=== PATIENT | male | born 1960 | race Caucasian/White ===

== ENCOUNTER → 2023-06-07 | Outpatient (CLI) | payer BC, SELFPAY ==
--- OUTSIDE RECORDS SUMMARY | 2023-06-07 06:22 | XMS RPT_ITS | CCD ---
Author Name Unknown Address [address] [place] [id number] Organization [facility] Results Test Name Value Interpretation Reference Range Facil ity Encounters Encounter Date Encounter Type Care Provider Facility Start: 06-08-2022 End: 06-08-2022 ambulatory Facility:[facility] Payers Date Payer Category Payer Unknown [id number] Summary Purpose Family History No Family History Records Found Advance Directives No Advanced Directives Records Found Additional Source Comments (unrecognized sect ion and content) No Status Records Found INFORMATION SOURCE (unrecogn ized section and content) FOR RECORDS PERTAINING TO PATIENTS WHO ARE OR HAVE BEEN ENROLLED IN A CHEMICAL DEPENDENCY/SUBSTANCEABUSE PROGRAM, SOME INFORMATION MAY BE OMITTED. This clinical summary was aggregated from multiple sources. Caution should be exercised in using it in the provision of clinical care. This summary normalizes information from multiple sources, and as a consequence, information in this document may materially change the coding, format and clinical context of patient data. In addition, data may be omitted in some cases. CLINICAL DECISIONS SHOULD BE BASED ON THE PRIMARY CLINICAL RECORDS. [facility]. provides no warranty or guarantee of the accuracy or completeness of information in this document.
[2023-06-07 06:42] LABS: Absolute Neutrophil Count 3.9 X10^3/uL (2.0-7.7); Basophil# 0.04 X10^3/uL; Basophil% 0.6 % (0-1); Eosinophil# 0.22 X10^3/uL; Eosinophils% 3.6 % (0-5); Hematocrit 43.3 % (40-54); Hemoglobin 14.1 g/dL (13.0-16.5); Lymphocyte % 19.4 % (19-41); Mean Corp Hgb Conc 32.6 g/dL (32-36); Mean Corpuscular Volume 86.1 fL (80-94); Mean Platelet Vol. 9.7 fl (6.2-12.0); Monocyte# 0.75 X10^3/uL; Monocyte% 12.2 % (0-10); NRBC Flagged by Analyzer 0 % (0-5); Neutrophil # 3.94 X10^3/uL (2.7-7.7); Neutrophil % 63.9 % (47-70); Platelet Count 214 K/mm3 (150-450); RBC Distribution Width CV 12.6 % (11.6-14.6); RBC Distribution Width SD 39.6 fl (35.1-43.9); Red Blood Count 5.03 M/mm3 (4.6-6.2); White Blood Count 6.2 K/mm3 (4.4-11.0)
[2023-06-07 07:23] LABS: ALB/GLOB Ratio 0.9 RATIO (0.9-2.4); AST(SGOT) 19 U/L (15-37); Alanine Aminotransfer ALT/SGPT 30 U/L (16-61); Albumin, Serum 3.5 g/dL (3.2-5.0); Alkaline Phosphatase 87 U/L (45-117); Anion Gap 2 (5-15); BUN 20 mg/dL (7-18); Calcium,Total 9.2 mg/dL (8.5-10.1); Chloride 106 mmol/L (98-107); Cholesterol 167 mg/dL (200); EST Glomerular Filtration Rate 80 mL/min (>60); Est Glom Filt Rate - Afr Amer 97 mL/min (>60); Globulin 3.9 g/dL (2.2-4.2); Glucose 98 mg/dL (74-106); High Density Lipoprotein 74 mg/dL; Potassium 3.9 mmol/L (3.5-5.1); Protein, Total 7.4 g/dL (6.4-8.2); Sodium Level 140 mmol/L (136-145); Triglycerides 36 mg/dL; Very Low Density Lipoprotein 7 mg/dL (5-40)
== END | disposition home or self-care (01) ==
PROVIDERS: PCP Family Medicine; Referring Provider Family Medicine; Visit Provider Family Medicine
DX: Z00.00 Encounter for general adult medical examination without abnormal findings (principal); Z12.5 Encounter for screening for malignant neoplasm of prostate
CPT/HCPCS: 36415; 80053; 80061; 85025

== ENCOUNTER → 2023-06-14 | Outpatient (CLI) | payer BC, SELFPAY ==
--- OUTSIDE RECORDS SUMMARY | 2023-06-14 11:00 | XMS RPT_ITS | CCD ---
Author Name Unknown Address [address] [place] [id number] Organization [facility] Results Test Name Value Interpretation Reference Range Facil ity Encounters Encounter Date Encounter Type Care Provider Facility Start: 06-08-2022 End: 06-08-2022 ambulatory Facility:[facility] Payers Date Payer Category Payer Unknown [id number] Summary Purpose Family History No Family History [...] BE BASED ON THE PRIMARY CLINICAL RECORDS. [facility]. provides no warranty or guarantee of the accuracy or completeness of information in this document.
[2023-06-14 12:50] LABS: PSA,Total - Annual Screen 2.59 ng/mL (0.00-4.00)
== END | disposition home or self-care (01) ==
LOC: BFHLAB 09:41
PROVIDERS: PCP Family Medicine; Visit Provider Family Medicine
DX: Z12.5 Encounter for screening for malignant neoplasm of prostate (principal)
CPT/HCPCS: 36415; 84153; G0103

== ENCOUNTER → 2024-06-07 | Outpatient (CLI) | payer BC, SELFPAY ==
[2024-06-07 06:32] LABS: Absolute Lymphocyte Count 1.82 X10^3/uL (0.83-4.51); Absolute Neutrophil Count 3.3 X10^3/uL (2.0-7.7); Basophil# 0.06 X10^3/uL; Eosinophil# 0.29 X10^3/uL; Eosinophils% 4.9 % (0-5); Hematocrit 42.4 % (40-54); Hemoglobin 14.4 g/dL (13.0-16.5); Lymphocyte # 1.82 X10^3/ul (0.83-4.51); Lymphocyte % 30.5 % (19-41); Mean Corpuscular Volume 85.3 fL (80-94); Mean Platelet Vol. 9.8 fl (6.2-12.0); Monocyte# 0.53 X10^3/uL; Monocyte% 8.9 % (0-10); NRBC Flagged by Analyzer 0 % (0-5); Neutrophil # 3.27 X10^3/uL (2.7-7.7); Neutrophil % 54.7 % (47-70); Platelet Count 218 K/mm3 (150-450); RBC Distribution Width CV 12.2 % (11.6-14.6); RBC Distribution Width SD 37.1 fl (35.1-43.9); Red Blood Count 4.97 M/mm3 (4.6-6.2)
[2024-06-07 07:07] LABS: AST(SGOT) 21 U/L (15-37); Alanine Aminotransfer ALT/SGPT 27 U/L (16-61); Albumin, Serum 3.6 g/dL (3.2-5.0); Alkaline Phosphatase 71 U/L (45-117); Anion Gap 3 (5-15); BUN 21 mg/dL (7-18); BUN/Creat Ratio 19.6 RATIO (10-20); Calcium,Total 9.1 mg/dL (8.5-10.1); Chloride 106 mmol/L (98-107); Cholesterol 191 mg/dL (200); Creatinine, Serum 1.07 mg/dL (0.70-1.30); EST Glomerular Filtration Rate 74 mL/min (>60); Est Glom Filt Rate - Afr Amer 90 mL/min (>60); Globulin 3.5 g/dL (2.2-4.2); Glucose 95 mg/dL (74-106); High Density Lipoprotein 80 mg/dL; PSA,Total - Annual Screen 2.49 ng/mL (0.00-4.00); Potassium 3.8 mmol/L (3.5-5.1); Protein, Total 7.1 g/dL (6.4-8.2); Sodium Level 139 mmol/L (136-145); Triglycerides 67 mg/dL; Very Low Density Lipoprotein 13 mg/dL (5-40)
== END | disposition home or self-care (01) ==
LOC: LAB 06:11
PROVIDERS: PCP Family Medicine; Referring Provider Family Medicine; Visit Provider Family Medicine
DX: Z00.00 Encounter for general adult medical examination without abnormal findings (principal); Z12.5 Encounter for screening for malignant neoplasm of prostate
CPT/HCPCS: 36415; 80053; 80061; 84153; 85025; G0103

== ENCOUNTER 2024-08-17 08:30 | Day surgery (SDC) | payer BC, SELFPAY ==
[2024-08-17] VITALS (8 sets, daily range): BP systolic 79–158; BP diastolic 53–86; PULSE 57–74; RESP 16–18; TEMP 36.3–36.6; O2SAT 93–100; BMI 23.3
--- NOTE | 2024-08-17 08:52 | PRE.ANES_ITS ---
ASA Classification* ASA Classification ASA Classification: 2 Assessment & Plan Anesthesia* Anesthesia Assessment Anesthesia Assessment: Discussed sedation and/or anesthesia options, risks, benefits, and alternatives with patient/parents/legal guardian/POA. Questions invited. The patient/parents/legal guardian/POA seems to understand and agrees to proceed with anesthesia plan. Reviewed the physical assessment, medical history, allergy history and patient home medications list prior to surgery/procedure/anesthetic and documented any changes. Performed airway and anesthesia risk assessments. Anesthesia Type Anesthesia Type: MAC Anesthesia Focused Assessment* Airway Assessment Mouth opens: >3 cm Mallampati Score: II Focused Labs Anesthesia Preop lab: CBC WBC 6.0 K/mm3 (4.4-11.0) 06/07/24 06:16 06/07/24 RBC 4.97 M/mm3 (4.6-6.2) 06/07/24 06:16 06/07/24 Hgb 14.4 g/dL (13.0-16.5) 06/07/24 06:16 06/07/24 Hct 42.4 % (40-54) 06/07/24 06:16 06/07/24 Plt Count 218 K/mm3 (150-450) 06/07/24 06:16 06/07/24 CHEMISTRY Potassium 3.8 mmol/L (3.5-5.1) 06/07/24 06:16 06/07/24 Sodium 139 mmol/L (136-145) 06/07/24 06:16 06/07/24 BUN 21 mg/dL (7-18) H 06/07/24 06:16 06/07/24 Creatinine 1.07 mg/dL (0.70-1.30) 06/07/24 06:16 06/07/24 Glucose 95 mg/dL (74-106) 06/07/24 06:16 06/07/24 COAG Pre-Assessment Diagnosis/Proposed Procedure Planned Operative Procedure(s): EGD, COLONOSCOPY Anesthesia History Anesthesia History - therapy director: Anesthesia History - therapy director Hx Hospitalization No 08/16/24 11:49 Any Problems With Anesthesia No 08/16/24 11:49 Cholinesterase deficiency No 08/16/24 11:49 You/Your Family Experience No 08/16/24 11:49 fever (hyperthermia) with Relationship Recent Exposure to Contagious Disease Does patient have nerve No 08/16/24 11:49 stimulator Patient instructed to have device shut off --Does patient have Pacemaker or ICD? When Was Last Pacemaker Check QUESTION #4 FULL TEXT: You/Your Family Experience fever (hyperthermia) with Anesthesia Last Oral Intake Last Oral intake: Last Oral Intake NPO since Meds taken in AM with sips of water? Meds patient instructed to take am of surgery PONV PONV - therapy director: PONV - therapy director Female No 08/16/24 11:49 HX of Motion Sickness No 08/16/24 11:49 HX of N/V After Surgery No 08/16/24 11:49 Non-Smoker Yes 08/16/24 11:49 Duration of Surgery greater No 08/16/24 11:49 than 60 minutes Number of Risk Factors 1 08/16/24 11:49 PONV Score Low Risk 08/16/24 11:49 Height & Weight Height & Weight: Anesthesia: Height & Weight Height 5 ft 10 in 07/11/24 14:55 Respiratory Assessment Respiratory Assessment - therapy director: Respiratory Tract Infection Hx - therapy director Hx Respiratory Tract Infection No 08/16/24 11:49 STOP Sleep Apnea STOP Sleep Apnea - therapy director: STOP Sleep Apnea - therapy director Hx Hypertension Yes 08/16/24 11:49 Hx Sleep Apnea No 08/16/24 11:49 CPAP BIPAP Do you snore loudly (louder No 08/16/24 11:49 than talking or can be heard Do you often feel tired/ No 08/16/24 11:49 fatigued/ sleepy during daytime? Has anyone observed you stop No 08/16/24 11:49 breathing during sleep? STOP Results Negative 08/16/24 11:49 QUESTION #5 FULL TEXT : Do you snore loudly (louder than talking or can be heard through closed doors)? Tobacco Use History Tobacco Use History - therapy director: Tobacco Use History - therapy director Tobacco Use Smoking Status Never smoker 08/16/24 11:49 Hx Tobacco Use No 08/16/24 11:49 Years Smoking Packs Smoked per Day Smoking Cessation Date was within the last 15 years Hx Smoking Cessation Date Hx Smoking Cessation Counseling Hematologic Medial History Hematologic Hx - therapy director: Hematologic Medical Hx - clinical applications manager Hx of Blood Transfusion No 08/16/24 11:49 Hx of Transfusion in last 3 No 08/16/24 11:49 Months Date of Last Transfusion (if within last 3 months) Ever experience any problems No 08/16/24 11:49 with transfusion(s)? Specify any problems Hx of Preganancy in last 3 N/A 08/16/24 11:49 Months Nurse Filling Out Transfusion [facility] 08/16/24 11:49 & Questions: Date: 08/16/24 08/16/24 11:49 Time: 11:55 08/16/24 11:49 Patient unable to answer at this time (ie. confused, unrespo /Reproduction History /Reproductive History - therapy director: /Reproductive Hx- therapy director Hx Now Gestational Age (in weeks): EDC: Hx Hx Para Hx Section SAB PFSH Medical History Wears contact lenses Non-smoker Leg cramps Hypertension Hemorrhoids Positive fecal occult blood test Home Medications ?Medication ?Instructions ?Recorded ?Last Taken ?Type lisinopril 20 1 tab PO DAILY HYPERTESION 0 07/12/24 Unknown History mg-hydrochlorothiazide 12.5 mg tablet Allergy/AdvReac Type Severity Reaction Status Date / Time No Known Allergies Allergy Verified 08/16/24 11:48 Surgical History History of ankle surgery Hx of tonsillectomy Social History Smoking Status: Never smoker alcohol intake: never substance use type: does not use Review of Systems (Anesthesia) ROS Narrative System reviewed and no additional complaints, except as documented.
--- NOTE | 2024-08-17 09:46 | PCM.HP.BLA ---
History and Physical Date of Admission: 08/17/24 Intake Vital Signs 07/11/2513:55 Height 5 ft 10 in Weight: 175 lb 4 oz BMI 25.1 BP 168/87 H Blood Pressure Location Rt brachial Position Sitting Respiration 18 Pulse 69 Pulse Source Monitor Temp 97.8 F Temp Source Temporal Pulse Oximetry (%) 99 Oxygen Delivery Method room air Intake Visit Reasons: BLOOD IN STOOL Chief Complaint: blood in stool Is patient in pain?: No Allergies No Known Allergies Allergy (Unverified 07/11/24 14:57) Medications ?Medication ?Instructions ?Recorded ?Confirmed ?Type NK 07/11/24 07/11/24 History PFSH Medical History (Updated 07/11/24 @ 14:55 by Lizette Rey LPN) Hypertension Hemorrhoids Positive fecal occult blood test Surgical History (Updated 07/11/24 @ 14:55 by Lizette Rey LPN) Hx of tonsillectomy Social History (Updated 07/11/24 @ 14:55 by Lizette Rey LPN) Smoking Status: Never smoker alcohol intake: never substance use type: does not use HPI HPI HPI: Patient is a 64-year-old male here for positive fecal occult blood test. The patient has never had a colonoscopy in the past. He has never had an EGD. He denies abdominal pain or blood in the stool. He denies black and tarry stools as well. ROS General General: No weight change, appetite, fatigue, colon cancer, breast cancer or weakness HEENT HEENT: No difficulty swallowing, eye injury, eye surgery, swollen glands or hoarseness Endo Endocrine: No thyroid disease, diabetes mellitus, thyroid cancer, Hair loss, heat intolerance or cold intolerance Skin Skin: No rash or changing moles Musc Musculoskeletal: No back problems, arthritis, rheumatoid arthritis, gout or joint pain Cardio Cardiovascular: Yes high blood pressure; No murmur, pacemaker, heart disease, atrial fibrillation, heart attack, heart stent, palpitations, shortness of breat with exertion or chest pain Psych Psychiatric: No depression, anxiety or hearing voices Resp Respiratory: No shortness of breath, No sleep apnea, No cough, No COPD, No asthma, No emphysema and No wheezing Gastro Gastrointestinal: No abdominal pain, No nausea or vomiting, No diarrhea, No constipation, Yes blood in stool, No acid reflux, Yes hemorrhoids, No ulcers, No gallbladder problem and No black,tarry stools [place] Hematologic: No blood thinners, No blood disorders, No bleeding, No anemia and No blood clots Neuro Neurologic: No numbness, No tingling and No weakness Exam Const General: cooperative Orientation: alert and oriented x3 HENMT Head: normal to inspection Neck Neck: normal visual inspection and full ROM Chest Chest palpation & inspection: normal inspection of the chest Resp Effort & Inspection: normal respiratory effort Auscultation: clear to auscultation bilaterally Cardio Rate: regular rate Rhythm: regular rhythm GI Inspection: non-distended Palpation: soft and nontender Skin General: no rashes or lesions noted Neuro General: patient alert and patient oriented x3 Extrem General: full ROM Psych Appearance: grossly normal Mental Status: mental status grossly normal Assessment and Plan Assessment and Plan (1) Positive fecal occult blood test: Status: Acute Plan: Given the positive fecal occult blood test I would recommend the patient have an EGD and colonoscopy. He has never had a screening colonoscopy in the past. I explained endoscopy in detail to the patient. I explained the risks including but not limited to stroke or heart attack with anesthesia, perforation of the GI tract, bleeding, infection. I explained that any of these could necessitate further emergency surgery. The patient understands and all questions were answered sufficiently. The patient wishes to proceed with procedure. Lexx Mascorro MD Pager: [facility] [address] [place] [address], [address] [place] [id number] Office: I have examined the patient and the H&P has been reviewed. There are no clinical changes since date of exam.
--- NOTE | 2024-08-17 10:31 | OP.EGD_ITS ---
Patient Name: Paul Ramírez Procedure Date: 08/17/2024 9:48 AM Date of : 1960 Age: 64 Procedure: Upper GI endoscopy Indications: Occult blood in stool Providers: Lexx Mascorro MD Medicines: Propofol per Anesthesia Patient Profile: This is a 64 year old male. Refer to note in patient chart for documentation of history and physical. Complications: No immediate complications. Procedure: Pre-Anesthesia Assessment: - Prior to the procedure, a History and Physical was performed, and patient medications and allergies were reviewed. The patient's tolerance of previous anesthesia was also reviewed. The risks and benefits of the procedure and the sedation options and risks were discussed with the patient. All questions were answered, and informed consent was obtained. Prior Anticoagulants: The patient has taken no anticoagulant or antiplatelet agents. After reviewing the risks and benefits, the patient was deemed in satisfactory condition to undergo the procedure. After obtaining informed consent, the endoscope was passed under direct vision. Throughout the procedure, the patient's blood pressure, pulse, and oxygen saturations were monitored continuously. The pediatric colonoscope was introduced through the mouth, and advanced to the third part of duodenum. The upper GI endoscopy was accomplished without difficulty. The patient tolerated the procedure well. Scope In: 10:15:02 AM Scope Out: 10:17:00 AM Total Procedure Duration Time 0 hours 1 minute 58 seconds Findings: The esophagus was normal. The stomach was normal. The examined duodenum was normal. Impression: - Normal esophagus. - Normal stomach. - Normal examined duodenum. - No specimens collected. Recommendation: - Discharge patient to home. - Resume previous diet. - Continue present medications. Procedure Code(s): --- Professional --- 14886, Esophagogastroduodenoscopy, flexible, transoral; diagnostic, including collection of specimen(s) by brushing or washing, when performed (separate procedure) Diagnosis Code(s): --- Professional --- R19.5, Other fecal abnormalities CPT copyright 2021 [employer]. All rights reserved. The codes documented in this report are preliminary and upon cafeteria or lunchroom checker review may be revised to meet current compliance requirements. Lexx Mascorro MD 08/17/2024 10:30:52 AM This report has been signed electronically. Number of Addenda: 0 Note Initiated On: 08/17/2024 9:48 AM
--- NOTE | 2024-08-17 10:31 | OP.CCLET_ITS ---
08/17/2024 Heriberto Perry [address] [place] [address] Re : Upper GI endoscopy procedure for Paul Ramírez Dear Dr. Perry This procedure was performed on Saturday, August 17, 2024. My impressions and recommendations are as follows: Impressions : - Normal esophagus. - Normal stomach. - Normal examined duodenum. - No specimens collected. Recommendations : - Discharge patient to home. - Resume previous diet. - Continue present medications. My findings are described in the full procedure note, which is enclosed. If I can be of further assistance, please feel free to contact me at Doctor phone number(s): , Work: . Sincerely, Lexx Mascorro MD 08/17/2024 10:30:52 AM This report has been signed electronically.
--- NOTE | 2024-08-17 10:32 | OP.COLON_ITS ---
Patient Name: Paul Ramírez Procedure Date: 08/17/2024 10:17 AM Date of : 1960 Age: 64 Procedure: Colonoscopy Indications: Gastrointestinal occult blood loss Providers: Lexx Mascorro MD Medicines: Propofol per Anesthesia Patient Profile: This is a 64 year old male. Refer to note in patient chart for documentation of history and physical. Last Colonoscopy: several years ago. Complications: No immediate complications. Procedure: Pre-Anesthesia Assessment: - Prior to the procedure, a History and Physical was performed, and patient medications and allergies were reviewed. The patient's tolerance of previous anesthesia was also reviewed. The risks and benefits of the procedure and the sedation options and risks were discussed with the patient. All questions were answered, and informed consent was obtained. Prior Anticoagulants: The patient has taken no anticoagulant or antiplatelet agents. After reviewing the risks and benefits, the patient was deemed in satisfactory condition to undergo the procedure. After I obtained informed consent, the scope was passed under direct vision. Throughout the procedure, the patient's blood pressure, pulse, and oxygen saturations were monitored continuously. The pediatric colonoscope was introduced through the anus and advanced to the cecum, identified by appendiceal orifice and ileocecal valve. The colonoscopy was performed without difficulty. The patient tolerated the procedure well. The quality of the bowel preparation was good. The ileocecal valve, appendiceal orifice, and rectum were photographed. Scope In: 10:17:57 AM Scope Withdrawal Time 0 hours 6 minutes 21 seconds Scope Out: 10:30:13 AM Total Procedure Duration Time 0 hours 12 minutes 16 seconds Findings: The entire examined colon appeared normal on direct and retroflexion views. Impression: - The entire examined colon is normal on direct and retroflexion views. - No specimens collected. Recommendation: - Discharge patient to home. - Resume previous diet. - Continue present medications. - Repeat colonoscopy in 10 years for screening purposes. Procedure Code(s): --- Professional --- 71660, Colonoscopy, flexible; diagnostic, including collection of specimen(s) by brushing or washing, when performed (separate procedure) Diagnosis Code(s): --- Professional --- R19.5, Other fecal abnormalities CPT copyright 2021 [employer]. All rights reserved. The codes documented in this report are preliminary and upon mobile equipment servicer review may be revised to meet current compliance requirements. Lexx Mascorro MD 08/17/2024 10:32:03 AM This report has been signed electronically. Number of Addenda: 0 Note Initiated On: 08/17/2024 10:17 AM
--- NOTE | 2024-08-17 10:32 | OP.CCLET_ITS ---
08/17/2024 Heriberto Perry [address] [place] [address] Re : Colonoscopy procedure for Paul Ramírez Dear Dr. Perry This procedure was performed on Saturday, August 17, 2024. My impressions and recommendations are as follows: Impressions : - The entire examined colon is normal on direct and retroflexion views. - No specimens collected. Recommendations : - Discharge patient to home. - Resume previous diet. - Continue present medications. - Repeat colonoscopy in 10 years for screening purposes. My findings are described in the full procedure note, which is enclosed. If I can be of further assistance, please feel free to contact me at Doctor phone number(s): , Work: . Sincerely, Lexx Mascorro MD 08/17/2024 10:32:03 AM This report has been signed electronically.
--- NOTE | 2024-08-17 10:38 | PCM.POST.ANE ---
Anesthesia: Postop Eval I Current Vital Signs Temperature: 97.4 F Pulse Rate: 64 Blood Pressure: 89/61 Respiratory Rate: 16 Pulse Ox: 98 Oxygen Delivery Method: Room Air Assessment Airway patent: Yes Spontaneous unlabored respirations: Yes Mental status: Asleep nausea: No Vomiting: No Anesthesia Complication: Yes Anesthesia Complication Comment:: in situ IV infiltrated, 2nd IV placed by anesthesia Fluid Hydration Crystalloid volume administer (ml): 60 Total IV fluid infused: 60 Progress Note Anesthesia document: Postop Eval 1 completed: Yes
--- NOTE | 2024-08-17 14:49 | PCM.POSTANE2 ---
Anesthesia Postop Eval I Sum Postop Eval Completion status Anesthesia document: Postop Eval 1 completed: Yes Anesthesia Postop Eval I Summary Anesthesia Postop Eval I Summary: Anesthesia Postop Eval I: Assessment Summary Airway patent Yes 08/17/24 10:39 [email or web address] Spontaneous unlabored Yes 08/17/24 10:39 [email or web address] respirations Mental status Asleep 08/17/24 10:39 [email or web address] nausea No 08/17/24 10:39 [email or web address] Vomiting No 08/17/24 10:39 [email or web address] Anesthesia Postop Eval I: Fluid Summary Crystalloid volume administer 60 08/17/24 10:39 [email or web address] (ml) Colloids volume administered ( ml) Blood Product volume administered (ml) Total IV fluid infused 60 08/17/24 10:39 [email or web address] Anesthesia Postop Eval I: Summary Notes Anesthesia Complication Yes 08/17/24 10:39 [email or web address] Anesthesia Complication in situ IV 08/17/24 10:39 [email or web address] Comment: infiltrated, 2nd IV placed by anesthesia Post-operative progress note Anesthesia: Postop Eval II Evaluation Mental status: Awake Pain Level: 0 nausea: No Vomiting: No
== END 2024-08-17 11:21 | disposition home or self-care (01) ==
LOC: EN 08:36 → AC 08:39
PROVIDERS: PCP Family Medicine; Referring Provider Family Medicine; Visit Provider Surgery
PROC: 0DJD8ZZ Inspection of Lower Intestinal Tract, Via Natural or Artificial Opening Endoscopic (ICD-10-PCS; CPT 45378; principal; 2024-08-17 09:25)
DX: R19.5 Other fecal abnormalities (principal)
CPT/HCPCS: 43235; 45378; A4216; J2405

== ENCOUNTER 2025-04-26 05:23 | Observation (INO) | payer BC, SELFPAY ==
[2025-04-26] VITALS (7 sets, daily range): BP systolic 119–177; BP diastolic 81–105; PULSE 54–69; RESP 16–21; TEMP 35.7–36.7; O2SAT 97–99; BMI 25.4; BMI 24.3
--- NOTE | 2025-04-26 05:23 | EKG12_ITS ---
Test Reason : SYNCOPE Blood Pressure : */* mmHG Vent. Rate : 63 BPM Atrial Rate : 63 BPM P-R Int : 192 ms QRS Dur : 90 ms QT Int : 416 ms P-R-T Axes : 41 -19 16 degrees QTcB Int : 425 ms Sinus rhythm with occasional Premature ventricular complexes Nonspecific T wave abnormality Abnormal ECG Confirmed by YOHANA RAMOS, NICHOLE ([id number]), senior editor HARVEY RODRIGUES ([id number]) on 04/29/2025 1:29:49 PM Referred By: ANIKA Confirmed By: NICHOLE MULLER MD
[2025-04-26] MEDS: 0.9% Normal Saline (1000mL) 1,000 ML 999 ML IV (05:32)
[2025-04-26 05:40] LABS: Hematocrit 42.4 % (40-54); Hemoglobin 14.7 g/dL (13.0-16.5); Immature Granulocytes Count 0.020 X10^3/uL (0.0-0.0); Mean Corp Hgb Conc 34.7 g/dL (32-36); Mean Corpuscular Volume 83.1 fL (80-94); Mean Platelet Vol. 10.1 fl (6.2-12.0); NRBC Flagged by Analyzer 0 % (0-5); Platelet Count 256 K/mm3 (150-450); RBC Distribution Width CV 11.9 % (11.6-14.6); RBC Distribution Width SD 36.1 fl (35.1-43.9); Red Blood Count 5.10 M/mm3 (4.6-6.2); White Blood Count 7.8 K/mm3 (4.4-11.0)
--- OUTSIDE RECORDS SUMMARY | 2025-04-26 05:42 | XMS RPT_ITS | CCD ---
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 Heriberto Perry DO Primary Care Provider Dr. Heriberto Perry DO Attending Provider Dr. Heriberto Perry DO Referring Provider Ludwin RAMOS, Dr. Hallman Attending Provider Ludwin RAMOS, Dr. Hallman Other Provider [phone] Heriberto Perry Primary Care Unavailable Lexx Mascorro Attending Unavailable Heriberto Perry Referring Unavailable Heriberto Perry Primary Care Unavailable Heriberto Perry Attending Unavailable Heriberto Perry Referring Unavailable Heriberto Perry Primary Care Unavailable Heriberto Perry Attending Unavailable Heriberto Perry Primary Care Unavailable Lexx Mascorro Attending Unavailable Heriberto Perry Referring Unavailable Heriberto Perry Primary Care Unavailable Lexx Mascorro Consulting Unavailable Lexx Mascorro Attending Unavailable Heriberto Perry Referring Unavailable Medications Current Medications Medication Drug Class(es) Dates Sig (Normalized) Sig (Original) hydroCHLOROthiazide 12.5 mg / lisinopril 20 mg oral tablet (1 source) Thiazide Diuretic, Angiotensin Converting Enzyme Inhibitor Start: 07-12-2024 Lisinopril-Hydr ochlorothiazide 20-12.5 mg tablet Active 1 {tbl} PO DAILY July 12, 2024 1:00am Problems Active Problems Problem Classification Problem Date Documented Da te Episodic/Chronic Essential hypertension (1 source) Hypertensive disorder; Translations: [Essential (primary) hypertension] 07-11-2024 Chronic Hemorrhoids (1 source) Hemorrhoids; Translations: [Unspecified hemorrhoids] 07-11-2024 Episodic Other gastrointestinal disorders (2 sources) Occult blood in stools; Translations: [Other fecal abnormalities] 07-11-2024 Episodic Other screening for suspected conditions (not mental disorders or infectious disease) (1 source) Encounter for screening for malignant neoplasm of prostate; Translations: [Encounter for screening for malignant neoplasm of prostate] Onset: 03-07-2025 Episodic Past or Other Problems Problem Classification Problem Date Documented Da te Episodic/Chronic Other gastrointestinal disorders (1 source) Other fecal abnormalities; Translations: [Other fecal abnormalities] Onset: 08-22-2024 Episodic Results Test Name Value Interpretation Reference Range Facility Colonoscopy Reporton 025 Colonoscopy Report [facility] Medical Records Department [address] [place] [address] Colonoscopy Report MR#: [id number] Acct: [id number] Name: PAUL RAMÍREZ Rep #: [id number] : 1960 64 From: Lexx Mascorro MD PCP: Dr. Heriberto Perry, DO [place] [facility] [place] Name: Paul Ramírez Procedure Date: 08/17/2024 10:17 AM Date of : 1960 Age: 64 Procedure: Colonoscopy Indications: Gastrointestinal occult blood loss Providers: Lexx Mascorro MD Medicines: Propofol per Anesthesia Patient Profile: This is a 64 year old male. Refer to note in patient chart for documentation of history and physical. Last Colonoscopy: several years ago. Complications: No immediate complications. Procedure: Pre-Anesthesia Assessment: - Prior to the procedure, a History and Physical was performed, and patient medications and allergies were reviewed. The patient's tolerance of previous anesthesia was also reviewed. The risks and benefits of the procedure and the sedation options and risks were discussed with the patient. All questions were answered, and informed consent was obtained. Prior Anticoagulants: The patient has taken no anticoagulant or antiplatelet agents. After reviewing the risks and benefits, the patient was deemed in satisfactory condition to undergo the procedure. After I obtained informed consent, the scope was passed under direct vision. Throughout the procedure, the patient's blood pressure, pulse, and oxygen saturations were monitored continuously. The pediatric colonoscope was introduced through the anus and advanced to the cecum, identified by appendiceal orifice and ileocecal valve. The colonoscopy was performed without difficulty. The patient tolerated the procedure well. The quality of the bowel preparation was good. The ileocecal valve, appendiceal orifice, and rectum were photographed. Scope In: 10:17:57 AM Scope Withdrawal Time 0 hours 6 minutes 21 seconds Scope Out: 10:30:13 AM Total Procedure Duration Time 0 hours 12 minutes 16 seconds Findings: The entire examined colon appeared normal on direct and retroflexion views. Impression: - The entire examined colon is normal on direct and retroflexion views. - No specimens collected. Recommendation: - Discharge patient to home. - Resume previous diet. - Continue present medications. - Repeat colonoscopy in 10 years for screening purposes. Procedure Code(s): --- Professional --- 31462, Colonoscopy, flexible; diagnostic, including collection of specimen(s) by brushing or washing, when performed (separate procedure) Diagnosis Code(s): --- Professional --- R19.5, Other fecal abnormalities CPT copyright 2021 [employer]. All rights reserved. The codes documented in this report are preliminary and upon clamp forklift operator review may be revised to meet current compliance requirements. Lexx Mascorro MD 08/17/2024 10:32:03 AM This report has been signed electronically. Number of Addenda: 0 Note Initiated On: 08/17/2024 10:17 AM 08/17/24 1032 Date Lexx Mascorro MD Cosigner Signature: Date (if indicated) CC: Dr. Lexx Mascorro MD; Dr. Heriberto Perry DO Date Dictated: 08/17/24 1017 Date Transcribed: Accountant Assistant: AC Signed Normal [facility] EGD Reporton 08-17-2024 EGD Report [facility] Medical Records Department [address] [place] [address] EGD Report MR#: [id number] Acct: [id number] Name: PAUL RAMÍREZ Rep #: [id number] : 1960 64 From: Lexx Mascorro MD PCP: Dr. Heriberto Perry, DO Status[place] [facility] [place] Name: Paul Ramírez Procedure Date: 08/17/2024 9:48 AM Date of : 1960 Age: 64 Procedure: Upper GI endoscopy Indications: Occult blood in stool Providers: Lexx Mascorro MD Medicines: Propofol per Anesthesia Patient Profile: This is a 64 year old male. Refer to note in patient chart for documentation of history and physical. Complications: No immediate complications. Procedure: Pre-Anesthesia Assessment: - Prior to the procedure, a History and Physical was performed, and patient medications and allergies were reviewed. The patient's tolerance of previous anesthesia was also reviewed. The risks and benefits of the procedure and the sedation options and risks were discussed with the patient. All questions were answered, and informed consent was obtained. Prior Anticoagulants: The patient has taken no anticoagulant or antiplatelet agents. After reviewing the risks and benefits, the patient was deemed in satisfactory condition to undergo the procedure. After obtaining informed consent, the endoscope was passed under direct vision. Throughout the procedure, the patient's blood pressure, pulse, and oxygen saturations were monitored continuously. The pediatric colonoscope was introduced through the mouth, and advanced to the third part of duodenum. The upper GI endoscopy was accomplished without difficulty. The patient tolerated the procedure well. Scope In: 10:15:02 AM Scope Out: 10:17:00 AM Total Procedure Duration Time 0 hours 1 minute 58 seconds Findings: The esophagus was normal. The stomach was normal. The examined duodenum was normal. Impression: - Normal esophagus. - Normal stomach. - Normal examined duodenum. - No specimens collected. Recommendation: - Discharge patient to home. - Resume previous diet. - Continue present medications. Procedure Code(s): --- Professional --- 36247, Esophagogastroduodenoscopy , flexible, transoral; diagnostic, including collection of specimen(s) by brushing or washing, when performed (separate procedure) Diagnosis Code(s): --- Professional --- R19.5, Other fecal abnormalities CPT copyright 2021 [employer]. All rights reserved. The codes documented in this report are preliminary and upon clamp forklift operator review may be revised to meet current compliance requirements. Lexx Mascorro MD 08/17/2024 10:30:52 AM This report has been signed electronically. Number of Addenda: 0 Note Initiated On: 08/17/2024 9:48 AM 08/17/24 1030 Date Lexx Hathaway Signature: Date (if indicated) CC: Dr. Lexx Mascorro MD; Dr. Heriberto Perry DO Date Dictated: 08/17/2448 Date Transcribed: Accountant Assistant: FRANCIA Deng [facility] MR/POSTOP.[facility] 08-17-2024 MR/POSTOP.[facility] Medical Records Department [address] [place] [address] Anesthesia Postop Eval I 08/17/24 1038 MR#: [id number] Acct: [id number] Name: PAUL RAMÍREZ Rep #: [id number] : 1960 64 From: Jean-Claude Madsen PCP: Dr. Heriberto Perry DO Status:REG [facility] Y Race: C Location: [place] [address] Anesthesia: Postop Eval I Current Vital Signs Temperature: 97.4 F Pulse Rate: 64 Blood Pressure: 89/61 Respiratory Rate: 16 Pulse Ox: 98 Oxygen Delivery Method: Room Air Assessment Airway patent: Yes Spontaneous unlabored respirations: Yes Mental status: Asleep nausea: No Vomiting: No Anesthesia Complication: Yes Anesthesia Complication Comment:: in situ IV infiltrated, 2nd IV placed by anesthesia Fluid Hydration Crystalloid volume administer (ml): 60 Total IV fluid infused: 60 Progress Note Anesthesia document: Postop Eval 1 completed: Yes 08/17/24 103 Date Jean-Claude Hathaway Signature: Date CC: Signed Normal [facility] MR/[id number] 08-17-2024 MR/POSTOPAN2 [facility] Medical Records Department [address] [place] [address] Anesthesia Postop Eval II 08/17/24 1449 MR#: [id number] Acct: [id number] Name: PAUL RAMÍREZ Rep #: [id number] : 1960 64 From: Lit Acosta MD PCP: Dr. Heriberto Perry, DO Status:[place] [facility] [place] Race: C Location: [place] Anesthesia Postop Eval I Sum Postop Eval Completion status Anesthesia document: Postop Eval 1 completed: Yes Anesthesia Postop Eval I Summary Anesthesia Postop Eval I Summary: Anesthesia Postop Eval I: Assessment Summary Airway patent Yes 08/17/24 10:39 [email or web address] Spontaneous unlabored Yes 08/17/24 10:39 [email or web address] respirations Mental status Asleep 08/17/24 10:39 [email or web address] nausea No 08/17/24 10:39 [email or web address] Vomiting No 08/17/24 10:39 [email or web address] Anesthesia Postop Eval I: Fluid Summary Crystalloid volume administer 60 08/17/24 10:39 [email or web address] (ml) Colloids volume administered ( ml) Blood Product volume administered (ml) Total IV fluid infused 60 08/17/24 10:39 [email or web address] Anesthesia Postop Eval I: Summary Notes Anesthesia Complication Yes 08/17/24 10:39 [email or web address] Anesthesia Complication in situ IV 08/17/24 10:39 [email or web address] Comment: infiltrated, 2nd IV placed by anesthesia Post-operative progress note Anesthesia: Postop Eval II Evaluation Mental status: Awake Pain Level: 0 nausea: No Vomiting: No 08/17/24 1449 Date [facility] Date CC: Signed Normal [facility] Surgery Visit Reporton 07-11 Surgery Visit Report [facility] [address] [place] [address] OFFICE VISIT Date of Service: 07/11/24 MR#: [id number] Acct: [id number] Name: PAUL RAMÍREZ Rep #: [id number] : 1960 Provider: Dr. Lexx ventura MD Age/Sex: 64/M Location: [facility] Status: Signed Intake Vital Signs 07/11/24 14:55 Height 5 ft 10 in Weight: 175 lb 4 oz BMI 25.1 BP 168/87 H Blood Pressure Location Rt brachial Position Sitting Respiration 18 Pulse 69 Pulse Source Monitor Temp 97.8 F Temp Source Temporal Pulse Oximetry (%) 99 Oxygen Delivery Method room air Intake Visit Reasons: BLOOD IN STOOL Chief Complaint: blood in stool Is patient in pain?: No Allergies No Known Allergies Allergy (Unverified 07/11/24 14:57) Medications ???Medication ???Instructions ???Recorded ???Confirmed ???Type NK 07/11/24 07/11/24 History PFSH Medical History (Updated 07/11/24 @ 14:55 by Lizette Rey LPN) Hypertension Hemorrhoids Positive fecal occult blood test Surgical History (Updated 07/11/24 @ 14:55 by Lizette Rey LPN) Hx of tonsillectomy Social History (Updated 07/11/24 @ 14:55 by Lizette Rey LPN) Smoking Status: Never smoker alcohol intake: never substance use type: does not use HPI HPI HPI: Patient is a 64-year-old male here for positive fecal occult blood test. The patient has never had a colonoscopy in the past. He has never had an EGD. He denies abdominal pain or blood in the stool. He denies black and tarry stools as well. ROS General General: No weight change, appetite, fatigue, colon cancer, breast cancer or weakness HEENT HEENT: No difficulty swallowing, eye injury, eye surgery, swollen glands or hoarseness Endo Endocrine: No thyroid disease, diabetes mellitus, thyroid cancer, Hair loss, heat intolerance or cold intolerance Skin Skin: No rash or changing moles Musc Musculoskeletal: No back problems, arthritis, rheumatoid arthritis, gout or joint pain Cardio Cardiovascular: Yes high blood pressure; No murmur, pacemaker, heart disease, atrial fibrillation, heart attack, heart stent, palpitations, shortness of breat with exertion or chest pain Psych Psychiatric: No depression, anxiety or hearing voices Resp Respiratory: No shortness of breath, No sleep apnea, No cough, No COPD, No asthma, No emphysema and No wheezing Gastro Gastrointestinal: No abdominal pain, No nausea or vomiting, No diarrhea, No constipation, Yes blood in stool, No acid reflux, Yes hemorrhoids, No ulcers, No gallbladder problem and No black,tarry stools [place] Hematologic: No blood thinners, No blood disorders, No bleeding, No anemia and No blood clots Neuro Neurologic: No numbness, No tingling and No weakness Exam Const General: cooperative Orientation: alert and oriented x3 HENMT Head: normal to inspection Neck Neck: normal visual inspection and full ROM Chest Chest palpation inspection: normal inspection of the chest Resp Effort Inspection: normal respiratory effort Auscultation: clear to auscultation bilaterally Cardio Rate: regular rate Rhythm: regular rhythm GI Inspection: non-distended Palpation: soft and nontender Skin General: no rashes or lesions noted Neuro General: patient alert and patient oriented x3 Extrem General: full ROM Psych Appearance: grossly normal Mental Status: mental status grossly normal Assessment and Plan Assessment and Plan (1) Positive fecal occult blood test: Status: Acute Plan: Given the positive fecal occult blood test I would recommend the patient have an EGD and colonoscopy. He has never had a screening colonoscopy in the past. I explained endoscopy in detail to the patient. I explained the risks including but not limited to stroke or heart attack with anesthesia, perforation of the GI tract, bleeding, infection. I explained that any of these could necessitate further emergency surgery. The patient understands and all questions were answered sufficiently. The patient wishes to proceed with procedure. Lexx Mascorro MD Pager: [facility] [address] [place] [address], [address] [place] [address] Office: Orders: Orders Colonoscopy Today EGD Today Coding Level of Care Code Off vis,new,level 3 Diagnoses Positive fecal occult blood test R19.5 07/11/24 1503 Date Lexx Hathaway Signature: Date (if applicable) CC: Normal [facility] Absolute neutrophil countOrd ered By: Heriberto Perry on 06-07-2024 Neutrophils (Bld) [#/Vol] 3.3 10*3/uL 2.0-7.7 [facility] Albumin to globulin ratioOrd ered By: Heriberto Perry on 06-07-2024 Albumin/Globulin [Mass ratio] 1.0 {ratio} 0.9-2.4 [facility] Basophil percentageOrdered B y: Heriberto Perry on 06-07-2024 Basophils/100 WBC (Bld) 1.0 % 0-1 [facility] Bilirubin, totalOrdered By: Heriberto Perry on 06-07-2024 Bilirubin [Mass/Vol] 1.10 mg/dL High 0.20-1.00 [facility] Comment on above: For patients on eltr ombopag therapy, use of Dimension [place] TBIL is not recommended. Blood urea nitrogen (BUN)/cr eatinine ratioOrdered By: Heriberto Perry on 06-07-2024 Urea nitrogen/Creatinine [Mass ratio] 19.6 mg/mg 10-20 [facility] CBC W/Diff, Automatedon Absolute Lymph 1.82 X10 3/uL Normal 0.83-4.51 [facility] Comment on above: Performed By: #### L 100.0100, L500.4100, L500.4050, L501.9910 #### [facility] [address] [place], [address] Absolute Neut 3.3 X10 3/uL Normal 2.0-7.7 [facility] Comment on above: Performed By: #### L 100.0100, L500.4100, L500.4050, L501.9910 #### [facility] [address] [place], [address] Basophils/100 WBC (Bld) 1.0 % Normal 0-1 [facility] Comment on above: Performed By: #### L 100.0100, L500.4100, L500.4050, L501.9910 #### [facility] [address] [place], [address] Eosinophils/100 WBC (Bld) 4.9 % Normal 0-5 [facility] Comment on above: Performed By: #### L 100.0100, L500.4100, L500.4050, L501.9910 #### [facility] [address] [place], [address] Erythrocyte distribution width (RBC) [Ratio] 12.2 % Normal 11.6-14.6 [facility] Comment on above: Performed By: #### L 100.0100, L500.4100, L500.4050, L501.9910 #### [facility] [address] [place], [address] Hematocrit (Bld) [Volume fraction] 42.4 % Normal 40-54 [facility] Comment on above: Performed By: #### L 100.0100, L500.4100, L500.4050, L501.9910 #### [facility] [address] [place], [address] Hemoglobin (Bld) [Mass/Vol] 14.4 g/dL Normal 13.0-16.5 [facility] Comment on above: Performed By: #### L 100.0100, L500.4100, L500.4050, L501.9910 #### [facility] [address] [place], [address] IG% 0.000 Normal 0.0-0.9 [facility] Comment on above: Result Comment: IG% - Immature Granulocytes (promyelocytes, myelocytes and metamyelocytes) > 1% indicates that a LEFT SHIFT is Present. Performed By: #### L 100.0100, L500.4100, L500.4050, L501.9910 #### [facility] [address] [place], [address] Lymphocytes/100 WBC (Bld) 30.5 % Normal 19-41 [facility] Comment on above: Performed By: #### L 100.0100, L500.4100, L500.4050, L501.9910 #### [facility] [address] [place], [address] MCH (RBC) [Entitic mass] 29.0 pg Normal 27.0-32.0 [facility] Comment on above: Performed By: #### L 100.0100, L500.4100, L500.4050, L501.9910 #### [facility] [address] [place], [address] MCHC (RBC) [Mass/Vol] 34.0 g/dL Normal 32-36 [facility] Comment on above: Performed By: #### L 100.0100, L500.4100, L500.4050, L501.9910 #### [facility] [address] [place], [address] MCV (RBC) [Entitic vol] 85.3 fL Normal 80-94 [facility] Comment on above: Performed By: #### L 100.0100, L500.4100, L500.4050, L501.9910 #### [facility] [address] [place], [address] Monocytes/100 WBC (Bld) 8.9 % Normal 0-10 [facility] Comment on above: Performed By: #### L 100.0100, L500.4100, L500.4050, L501.9910 #### [facility] [address] [place], [address] Neutrophils/100 WBC (Bld) 54.7 % Normal 47-70 [facility] Comment on above: Performed By: #### L 100.0100, L500.4100, L500.4050, L501.9910 #### [facility] [address] [place], [address] Nucleated RBC (Bld) [#/Vol] 0 10*3/uL Normal 0-5 [facility] Comment on above: Performed By: #### L 100.0100, L500.4100, L500.4050, L501.9910 #### [facility] [address] [place], [address] Platelet mean volume (Bld) [Entitic vol] 9.8 fL Normal 6.2-12.0 [facility] Comment on above: Performed By: #### L 100.0100, L500.4100, L500.4050, L501.9910 #### [facility] [address] [place], [address] Platelets (Bld) [#/Vol] 218 10*3/uL Normal 150-450 [facility] Comment on above: Performed By: #### L 100.0100, L500.4100, L500.4050, L501.9910 #### [facility] [address] [place], [address] RBC (Bld) [#/Vol] 4.97 10*6/uL Normal 4.6-6.2 [facility] Comment on above: Performed By: #### L 100.0100, L500.4100, L500.4050, L501.9910 #### [facility] [address] [place], [address] RDW SD 37.1 fl Normal 35.1-43.9 [facility] Comment on above: Performed By: #### L 100.0100, L500.4100, L500.4050, L501.9910 #### [facility] [address] [place], [address] WBC (Bld) [#/Vol] 6.0 10*3/uL Normal 4.4-11.0 [facility] Comment on above: Performed By: #### L 100.0100, L500.4100, L500.4050, L501.9910 #### [facility] [address] [place], [address] Carbon dioxide measurementOr dered By: Heriberto Perry on 06-07-2024 CO2 [Moles/Vol] 30.0 mmol/L 21.0-32.0 [facility] Chloride measurementOrdered By: Heriberto Perry on 06-07-2024 Chloride [Moles/Vol] 106 mmol/L 98-107 [facility] Comprehensive Metabolic Prof ilon 06-07-2024 Albumin [Mass/Vol] 3.6 g/dL Normal 3.2-5.0 [facility] Comment on above: Performed By: #### L 100.0100, L500.4100, L500.4050, L501.9910 #### [facility] [address] [place], [address] Albumin/Globulin [Mass ratio] 1.0 {ratio} Normal 0.9-2.4 [facility] Comment on above: Performed By: #### L 100.0100, L500.4100, L500.4050, L501.9910 #### [facility] [address] [place], [address] ALK P 71 U/L Normal 45-117 [facility] Comment on above: Performed By: #### L 100.0100, L500.4100, L500.4050, L501.9910 #### [facility] [address] [place], [address] ALT [Catalytic activity/Vol] 27 U/L Normal 16-61 [facility] Comment on above: Performed By: #### L 100.0100, L500.4100, L500.4050, L501.9910 #### [facility] [address] [place], [address] AST [Catalytic activity/Vol] 21 U/L Normal 15-37 [facility] Comment on above: Performed By: #### L 100.0100, L500.4100, L500.4050, L501.9910 #### [facility] [address] [place], [address] Bilirubin [Mass/Vol] 1.10 mg/dL High 0.20-1.00 [facility] Comment on above: Result Comment: For patients on eltrombopag therapy, use of Dimension [place] TBIL is not recommended. Performed By: #### L 100.0100, L500.4100, L500.4050, L501.9910 #### [facility] [address] [place], [address] BUN/CRE 19.6 RATIO Normal 10-20 [facility] Comment on above: Performed By: #### L 100.0100, L500.4100, L500.4050, L501.9910 #### [facility] [address] [place], [address] CA,Total 9.1 mg/dL Normal 8.5-10.1 [facility] Comment on above: Performed By: #### L 100.0100, L500.4100, L500.4050, L501.9910 #### [facility] [address] [place], [address] Chloride [Moles/Vol] 106 mmol/L Normal 98-107 [facility] Comment on above: Performed By: #### L 100.0100, L500.4100, L500.4050, L501.9910 #### [facility] [address] [place], [address] CO2 [Moles/Vol] 30.0 mmol/L Normal 21.0-32.0 [facility] Comment on above: Performed By: #### L 100.0100, L500.4100, L500.4050, L501.9910 #### [facility] [address] [place], [address] Creatinine [Mass/Vol] 1.07 mg/dL Normal 0.70-1.30 [facility] Comment on above: Result Comment: The validity of the calculated GFR GFRAA in patients over 70 years has not been determined. Clinical correlation is essential. Performed By: #### L 100.0100, L500.4100, L500.4050, L501.9910 #### [facility] [address] [place], [address] EST GFR - AA 90 mL/min Normal >60 [facility] Comment on above: Result Comment: Afri can Belgian GFR Calc Performed By: #### L 100.0100, L500.4100, L500.4050, L501.9910 #### [facility] [address] [place], [address] GAP 3 Low 5-15 [facility] Comment on above: Performed By: #### L 100.0100, L500.4100, L500.4050, L501.9910 #### [facility] [address] [place], [address] GFR/1.73 sq M.predicted among non-blacks MDRD (S/P/Bld) [Vol rate/Area] 74 mL/min/{1.73_m2} Normal >60 [facility] Comment on above: Result Comment: Non- GFR Calc Performed By: #### L 100.0100, L500.4100, L500.4050, L501.9910 #### [facility] [address] [place], [address] Globulin (S) [Mass/Vol] 3.5 g/dL Normal 2.2-4.2 [facility] Comment on above: Performed By: #### L 100.0100, L500.4100, L500.4050, L501.9910 #### [facility] [address] [place], [address] Glucose [Mass/Vol] 95 mg/dL Normal 74-106 [facility] Comment on above: Performed By: #### L 100.0100, L500.4100, L500.4050, L501.9910 #### [facility] [address] [place], [address] Potassium [Moles/Vol] 3.8 mmol/L Normal 3.5-5.1 [facility] Comment on above: Performed By: #### L 100.0100, L500.4100, L500.4050, L501.9910 #### [facility] [address] [place], [address] Sodium [Moles/Vol] 139 mmol/L Normal 136-145 [facility] Comment on above: Performed By: #### L 100.0100, L500.4100, L500.4050, L501.9910 #### [facility] [address] [place], [address] T PROT 7.1 g/dL Normal 6.4-8.2 [facility] Comment on above: Performed By: #### L 100.0100, L500.4100, L500.4050, L501.9910 #### [facility] [address] [place], [address] Urea nitrogen [Mass/Vol] 21 mg/dL High 7-18 [facility] Comment on above: Performed By: #### L 100.0100, L500.4100, L500.4050, L501.9910 #### [facility] [address] [place], [address] Eosinophil percentageOrdered By: Heriberto Perry on 06-07-2024 Eosinophils/100 WBC (Bld) 4.9 % 0-5 [facility] Erythrocyte distribution wid th ratioOrdered By: Heriberto Perry on 06-07-2024 Erythrocyte distribution width (RBC) [Ratio] 12.2 % 11.6-14.6 [facility] Erythrocyte distribution wid th standard deviationOrdered By: Heriberto Perry on 06-07-2024 Erythrocyte distribution width (RBC) [Entitic vol] 37.1 fL 35.1-43.9 [facility] Estimated glomerular filtrat ion rate (GFR) AmericanOrdered By: Heriberto Perry on 06-07-2024 Estimated GFR (MDRD) Amer 90 mL/min >60 [facility] Comment on above: GFR Calc Glomerular filtration rate ( GFR) estimationOrdered By: Heriberto Perry on 06-07-2024 Estimated GFR (MDRD) Non-Af Amer 74 mL/min >60 [facility] Comment on above: Non- GFR Calc Glucose measurementOrdered B y: Heriberto Perry on 06-07-2024 Glucose [Mass/Vol] 95 mg/dL 74-106 [facility] Hematocrit Auto (Bld) [Volum e fraction]Ordered By: Heriberto Perry on 06-07-2024 Hematocrit (Bld) [Volume fraction] 42.4 % 40-54 [facility] Hemoglobin measurementOrdere d By: Heriberto Perry on 06-07-2024 Hemoglobin (Bld) [Mass/Vol] 14.4 g/dL 13.0-16.5 [facility] High density lipoprotein (HD L) measurementOrdered By: Heriberto Perry on 06-07-2024 Cholesterol in HDL [Mass/Vol] 80 mg/dL >40 [facility] Comment on above: The drugs N-Acetylcy steine and Metamizole may falsely depress this assay. Reference Range HDL <40 mg/dL Low HDL Cholesterol HDL >or= 60 mg/dL High HDL Cholesterol Immature granulocytes/100 WB C Auto (Bld)Ordered By: Heriberto Perry on 06-07-2024 Immature granulocytes/100 WBC (Bld) 0.000 % 0.0-0.9 [facility] Comment on above: IG% - Immature Granu locytes (promyelocytes, myelocytes and metamyelocytes) > 1% indicates that a LEFT SHIFT is Present. Laboratory - Chemistry and C hemistry - challengeOrdered By: Heriberto Perry on 06-07-2024 AST [Catalytic activity/Vol] 21 U/L 15-37 [facility] Lipid Profileon 06-07-2024 Cholesterol [Mass/Vol] 191 mg/dL Normal 200 [facility] Comment on above: Result Comment: <200 mg/dL Desirable 200-240 mg/dL Borderline >240 mg/dL High Risk Performed By: #### L 100.0100, L500.4100, L500.4050, L501.9910 #### [facility] [address] [place], [address] Cholesterol in HDL [Mass/Vol] 80 mg/dL Normal [facility] Comment on above: Result Comment: The drugs N-Acetylcysteine and Metamizole may falsely depress this assay. Reference Range HDL <40 mg/dL Low HDL Cholesterol HDL >or= 60 mg/dL High HDL Cholesterol Performed By: #### L 100.0100, L500.4100, L500.4050, L501.9910 #### [facility] [address] [place], [address] Cholesterol in LDL [Mass/Vol] 98 mg/dL Normal 0-130 [facility] Comment on above: Performed By: #### L 100.0100, L500.4100, L500.4050, L501.9910 #### [facility] [address] [place], [address] Cholesterol in VLDL [Mass/Vol] 13 mg/dL Normal 5-40 [facility] Comment on above: Performed By: #### L 100.0100, L500.4100, L500.4050, L501.9910 #### [facility] [address] [place], [address] Triglyceride [Mass/Vol] 67 mg/dL Normal [facility] Comment on above: Result Comment: The drugs N-Acetylcysteine and Metamizole may falsely depress this assay. Serum Triglycerides Reference Interval Normal <150 mg/dL Borderline high 150 - 199 mg/dL High 200 - 499 mg/dL Very High > or = 500 mg/dL Performed By: #### L 100.0100, L500.4100, L500.4050, L501.9910 #### [facility] [address] [place], [address] Low density lipoprotein (LDL ) cholesterol measurementOrdered By: Heriberto Perry on 06-07-2024 Cholesterol in LDL [Mass/Vol] 98 mg/dL 0-130 [facility] Lymphocytes Auto (Unsp spec) [#/Vol]Ordered By: Heriberto Perry on 06-07-2024 Lymphocytes (Bld) [#/Vol] 1.82 10*3/uL 0.83-4.51 [facility] Lymphocytes/100 WBC Auto (Un sp spec)Ordered By: Heriberto Perry on 06-07-2024 Lymphocytes/100 WBC (Bld) 30.5 % 19-41 [facility] MCV (mean corpuscular volume ) determinationOrdered By: Heriberto Perry on 06-07-2024 MCV (RBC) [Entitic vol] 85.3 fL 80-94 [facility] Mean corpuscular hemoglobin (MCH) determinationOrdered By: Heriberto Perry on 06-07-2024 MCH (RBC) [Entitic mass] 29.0 pg 27.0-32.0 [facility] Mean corpuscular hemoglobin concentration (MCHC) determinationOrdered By: Heriberto Perry on 06-07-2024 MCHC (RBC) [Mass/Vol] 34.0 g/dL 32-36 [facility] Mean platelet volume determi nationOrdered By: Heriberto Perry on 06-07-2024 Platelet mean volume (Bld) [Entitic vol] 9.8 fL 6.2-12.0 [facility] Monocyte percentageOrdered B y: Heriberto Perry on 06-07-2024 Monocytes/100 WBC (Bld) 8.9 % 0-10 [facility] Neutrophil percentageOrdered By: Heriberto Perry on 06-07-2024 Neutrophils/100 WBC (Bld) 54.7 % 47-70 [facility] Nucleated red blood cell per centageOrdered By: Heriberto Perry on 06-07-2024 Nucleated RBC/100 WBC (Bld) [Ratio] 0 % 0-5 [facility] PSA,Total - Annual Screenon 06-07-2024 PSA,TOT SCREEN 2.49 ng/mL Normal 0.00-4.00 [facility] Comment on above: Result Comment: This test was performed using the TPSA assay method for the [employer] chemistry system. Values obtained with different assay methods cannot be used interchangably. When changing PSA assays in the course of monitoring a patient, additional sequential testing should be carried out to confirm baseline values. Performed By: #### L 100.0100, L500.4100, L500.4050, L501.9910 #### [facility] [address] [place], [address] Platelet countOrdered By: Eren Perry on 06-07-2024 Platelets (Bld) [#/Vol] 218 10*3/uL 150-450 [facility] Potassium measurementOrdered By: Heriberto Perry on 06-07-2024 Potassium [Moles/Vol] 3.8 mmol/L 3.5-5.1 [facility] RBC Auto (Bld) [#/Vol]Ordere d By: Heriberto Perry on 06-07-2024 RBC (Bld) [#/Vol] 4.97 10*6/uL 4.6-6.2 [facility] Screening prostate specific antigen (PSA) measurementOrdered By: Heriberto Perry on 06-07-2024 Prostate Specific Antigen Screen 2.49 ng/mL 0.00-4.00 [facility] Comment on above: This test was perfor med using the TPSA assay method for the[facility] chemistry system. Values obtained with differentassay methods cannot be used interchangably.When changing PSA assays in the course of monitoring apatient, additional sequential testing should be carriedout to confirm baseline values. Serum anion gap measurementO rdered By: Heriberto Perry on 06-07-2024 Anion gap [Moles/Vol] 3 mmol/L Low 5-15 [facility] Serum globulin measurementOr dered By: Heriberto Perry on 06-07-2024 Globulin (S) [Mass/Vol] 3.5 g/dL 2.2-4.2 [facility] Serum or plasma alanine michelle otransferase (ALT) measurementOrdered By: Heriberto Perry on 06-07-2024 ALT [Catalytic activity/Vol] 27 U/L 16-61 [facility] Serum or plasma albumin david urement (mass/volume)Ordered By: Heriberto Perry on 06-07-2024 Albumin [Mass/Vol] 3.6 g/dL 3.2-5.0 [facility] Serum or plasma alkaline robbi sphatase measurementOrdered By: Heriberto Perry on 06-07-2024 ALP [Catalytic activity/Vol] 71 U/L 45-117 [facility] Serum or plasma calcium david urement (mass/volume)Ordered By: Heriberto Perry on 06-07-2024 Calcium [Mass/Vol] 9.1 mg/dL 8.5-10.1 [facility] Serum or plasma cholesterol measurement (mass/volume)Ordered By: Heriberto Perry on 06-07-2024 Cholesterol [Mass/Vol] 191 mg/dL <200 [facility] Comment on above: <200 mg/dL Desirable 200-240 mg/dL Borderline >240 mg/dL High Risk Serum or plasma creatinine m easurement (mass/volume)Ordered By: Heriberto Perry on 06-07-2024 Creatinine [Mass/Vol] 1.07 mg/dL 0.70-1.30 [facility] Comment on above: The validity of the calculated GFR & GFRAA in patients over 70 years has not been determined. Clinical correlation is essential. Serum or plasma urea nitroge n measurement (mass/volume)Ordered By: Heriberto Perry on 06-07-2024 Urea nitrogen [Mass/Vol] 21 mg/dL High 7-18 [facility] Sodium levelOrdered By: Heriberto Perry on 06-07-2024 Sodium [Moles/Vol] 139 mmol/L 136-145 [facility] Total proteinOrdered By: Sammie Perry on 06-07-2024 Protein [Mass/Vol] 7.1 g/dL 6.4-8.2 [facility] Triglycerides measurementOrd ered By: Heriberto Perry on 06-07-2024 Triglyceride [Mass/Vol] 67 mg/dL <199 [facility] Comment on above: The drugs N-Acetylcy steine and Metamizole may falsely depress this assay.Serum Triglycerides Reference Interval Normal <150 mg/dL Borderline high 150 - 199 mg/dL High 200 - 499 mg/dL Very High > or = 500 mg/dL Very low density lipoprotein (VLDL) cholesterol measurementOrdered By: Heriberto Perry on 06-07-2024 VLDL Cholesterol 13 mg/dL 5-40 [facility] White blood cell (WBC) count Ordered By: Heriberto Perry on 06-07-2024 WBC (Bld) [#/Vol] 6.0 10*3/uL 4.4-11.0 [facility] No Panel InformationOrdered By: Heriberto Perry on 06-14-2023 Prostate Specific Antigen Screen 2.59 ng/mL 0.00-4.00 [facility] Comment on above: This test was perfor med using the TPSA assay method for the[facility] chemistry system. Values obtained with differentassay methods cannot be used interchangably.When changing PSA assays in the course of monitoring apatient, additional sequential testing should be carriedout to confirm baseline values. Absolute lymphocyte countOrd ered By: Heriberto Perry on 06-07-2023 Lymphocytes Auto (Unsp spec) [#/Vol] 1.20 10*3/uL 0.83-4.51 [facility] Basophil percentageOrdered B y: Heriberto Perry on 06-07-2023 Basophils/100 WBC (Bld) 0.6 % 0-1 [facility] Bilirubin [Mass/Vol] 0.90 mg/dL 0.20-1.00 [facility] Comment on above: For patients on eltr ombopag therapy, use of Dimension [place] TBIL is not recommended. Chloride [Moles/Vol] 106 mmol/L 98-107 [facility] Cholesterol [Mass/Vol] 167 mg/dL <200 [facility] Comment on above: <200 mg/dL Desirable 200-240 mg/dL Borderline >240 mg/dL High Risk Eosinophils/100 WBC (Bld) 3.6 % 0-5 [facility] Glucose [Mass/Vol] 98 mg/dL 74-106 [facility] Neutrophils (Bld) [#/Vol] 3.9 10*3/uL 2.0-7.7 [facility] Neutrophils/100 WBC (Bld) 63.9 % 47-70 [facility] Potassium [Moles/Vol] 3.9 mmol/L 3.5-5.1 [facility] Protein [Mass/Vol] 7.4 g/dL 6.4-8.2 [facility] Sodium [Moles/Vol] 140 mmol/L 136-145 [facility] Triglyceride [Mass/Vol] 36 mg/dL <199 [facility] Comment on above: The drugs N-Acetylcy steine and Metamizole may falsely depress this assay.Serum Triglycerides Reference Interval Normal <150 mg/dL Borderline high 150 - 199 mg/dL High 200 - 499 mg/dL Very High > or = 500 mg/dL WBC (Bld) [#/Vol] 6.2 10*3/uL 4.4-11.0 [facility] Blood erythrocytes count (nu mber/volume)Ordered By: Heriberto Perry on 06-07-2023 RBC (Bld) [#/Vol] 5.03 10*6/uL 4.6-6.2 [facility] Blood hemoglobin measurement (mass/volume)Ordered By: Heriberto Perry on 06-07-2023 Hemoglobin (Bld) [Mass/Vol] 14.1 g/dL 13.0-16.5 [facility] Blood lymphocytes/100 leukoc ytesOrdered By: Heriberto Perry on 06-07-2023 Lymphocytes/100 WBC (Bld) 19.4 % 19-41 [facility] Blood monocytes/100 leukocyt esOrdered By: Heriberto Perry on 06-07-2023 Monocytes/100 WBC (Bld) 12.2 % 0-10 [facility] Blood platelet mean volumeOr dered By: Heriberto Perry on 06-07-2023 Platelet mean volume (Bld) [Entitic vol] 9.7 fL 6.2-12.0 [facility] Determination of erythrocyte mean corpuscular volume (MCV)Ordered By: Heriberto Perry on 06-07-2023 MCV (RBC) [Entitic vol] 86.1 fL 80-94 [facility] Hematocrit Auto (Bld) [Volum e fraction]Ordered By: Heriberto Perry on 06-07-2023 Hematocrit (Bld) [Volume fraction] 43.3 % 40-54 [facility] - Chemistry and C hemistry - challengeOrdered By: Heriberto Perry on 06-07-2023 ALP [Catalytic activity/Vol] 87 U/L 45-117 [facility] ALT [Catalytic activity/Vol] 30 U/L 16-61 [facility] CO2 [Moles/Vol] 32.0 mmol/L 21.0-32.0 [facility] Globulin (S) [Mass/Vol] 3.9 g/dL 2.2-4.2 [facility] Urea nitrogen/Creatinine [Mass ratio] 20.0 mg/mg 10-20 [facility] - Hematology and Cell countsOrdered By: Heriberto Perry on 06-07-2023 Erythrocyte distribution width (RBC) [Entitic vol] 39.6 fL 35.1-43.9 [facility] Erythrocyte distribution width (RBC) [Ratio] 12.6 % 11.6-14.6 [facility] Immature granulocytes/100 WBC (Bld) 0.300 % 0.0-0.9 [facility] Comment on above: IG% - Immature Granu locytes (promyelocytes, myelocytes and metamyelocytes) > 1% indicates that a LEFT SHIFT is Present. MCH (RBC) [Entitic mass] 28.0 pg 27.0-32.0 [facility] Nucleated RBC/100 WBC (Bld) [Ratio] 0 % 0-5 [facility] Auto (RBC) [Mass/Vol]Or dered By: Heriberto Perry on 06-07-2023 MCHC (RBC) [Mass/Vol] 32.6 g/dL 32-36 [facility] No Panel InformationOrdered By: Heriberto Perry on 06-07-2023 Estimated GFR (MDRD) Amer 97 mL/min >60 [facility] Comment on above: GFR Calc Estimated GFR (MDRD) Non-Af Amer 80 mL/min >60 [facility] Comment on above: Non- GFR Calc Platelets bldOrdered By: Sammie Perry on 06-07-2023 Platelets (Bld) [#/Vol] 214 10*3/uL 150-450 [facility] Serum or plasma albumin david urement (mass/volume)Ordered By: Heriberto Perry on 06-07-2023 Albumin [Mass/Vol] 3.5 g/dL 3.2-5.0 [facility] Serum or plasma albumin/glob ulin mass ratioOrdered By: Heriberto Perry on 06-07-2023 Albumin/Globulin [Mass ratio] 0.9 {ratio} 0.9-2.4 [facility] Serum or plasma calcium david urement (mass/volume)Ordered By: Heriberto Perry on 06-07-2023 Calcium [Mass/Vol] 9.2 mg/dL 8.5-10.1 [facility] Serum or plasma cholesterol in HDL measurement (mass/volume)Ordered By: Heriberto Perry on 06-07-2023 Cholesterol in HDL [Mass/Vol] 74 mg/dL >40 [facility] Comment on above: The drugs N-Acetylcy steine and Metamizole may falsely depress this assay. Reference Range HDL <40 mg/dL Low HDL Cholesterol HDL >or= 60 mg/dL High HDL Cholesterol Serum or plasma cholesterol in VLDL measurement (mass/volume)Ordered By: Heriberto Perry on 06-07-2023 Cholesterol in VLDL [Mass/Vol] 7 mg/dL 5-40 [facility] Serum or plasma creatinine m easurement (mass/volume)Ordered By: Heriberto Perry on 06-07-2023 Creatinine [Mass/Vol] 1.00 mg/dL 0.70-1.30 [facility] Comment on above: The validity of the calculated GFR & GFRAA in patients over 70 years has not been determined. Clinical correlation is essential. Serum or plasma low density lipoprotein (LDL) cholesterol measurement (mass/volume)Ordered By: Heriberto Perry on 06-07-2023 Cholesterol in LDL [Mass/Vol] 86 mg/dL 0-130 [facility] Serum or plasma urea nitroge n measurement (mass/volume)Ordered By: Heriberto Perry on 06-07-2023 Urea nitrogen [Mass/Vol] 20 mg/dL 7-18 [facility] Thin prep Papanicolaou smear with manual screeningOrdered By: Heriberto Perry on 06-07-2023 Thin prep Papanicolaou smear with manual screening 19 U/L 15-37 [facility] Thin prep Papanicolaou smear with manual screening 2 5-15 [facility] CBC W Auto Differential pane l (Bld)on 06-08-2022 Basophils (Bld) [#/Vol] 10*3/uL Normal <0.11 [facility] Comment on above: Order Comment: Speci men Type: BLOOD SPECIMEN Ordering Facility: [facility] Address: [address] [place] [address] Performed By: #### 5 7021-8 #### [facility] CLIA [id number] [address] [place] [address] [place] Basophils/100 WBC (Bld) 0.2 % Normal [facility] Comment on above: Order Comment: Speci men Type: BLOOD SPECIMEN Ordering Facility: [facility] Address: [address] [place] [address] Performed By: #### 5 7021-8 #### [facility] CLIA [id number] [address] [place] [address] [place] Differential cell count method Nom (Bld) Auto Normal [facility] Comment on above: Order Comment: Speci men Type: BLOOD SPECIMEN Ordering Facility: [facility] Address: [address] [place] [address] Performed By: #### 5 7021-8 #### [facility] CLIA [id number] [address] [place] [address] [place] Eosinophils (Bld) [#/Vol] 0.25 10*3/uL Normal <0.46 [facility] Comment on above: Order Comment: Speci men Type: BLOOD SPECIMEN Ordering Facility: [facility] Address: [address] [place] [address] Performed By: #### 5 7021-8 #### [facility] CLIA [id number] [address] [place] [address] [place] Eosinophils/100 WBC (Bld) 4.6 % Normal [facility] Comment on above: Order Comment: Speci men Type: BLOOD SPECIMEN Ordering Facility: [facility] Address: [address] [place] [address] Performed By: #### 5 7021-8 #### [facility] CLIA [id number] [address] [place] [address] [place] Erythrocyte distribution width (RBC) [Ratio] 11.7 % Normal 11.5-15.0 [facility] Comment on above: Order Comment: Speci men Type: BLOOD SPECIMEN Ordering Facility: [facility] Address: [address] [place] [address] Performed By: #### 5 7021-8 #### [facility] CLIA [id number] [address] [place] [address] [place] Hematocrit (Bld) [Volume fraction] 42.0 % Normal 39.0-51.0 [facility] Comment on above: Order Comment: Speci men Type: BLOOD SPECIMEN Ordering Facility: [facility] Address: [address] [place] [address] Performed By: #### 5 7021-8 #### [facility] CLIA [id number] [address] [place] [address] [place] Hemoglobin (Bld) [Mass/Vol] 14.5 g/dL Normal 13.0-17.0 [facility] Comment on above: Order Comment: Speci men Type: BLOOD SPECIMEN Ordering Facility: [facility] Address: [address] [place] [address] Performed By: #### 5 7021-8 #### [facility] CLIA [id number] [address] [place] [address] [place] Immature granulocytes (Bld) [#/Vol] 10*3/uL Normal <0.10 [facility] Comment on above: Order Comment: Speci men Type: BLOOD SPECIMEN Ordering Facility: [facility] Address: [address] [place] [address] Performed By: #### 5 7021-8 #### [facility] CLIA [id number] [address] [place] [address] [place] Immature granulocytes/100 WBC (Bld) 0.2 % Normal [facility] Comment on above: Order Comment: Speci men Type: BLOOD SPECIMEN Ordering Facility: [facility] Address: [address] [place] [address] Performed By: #### 5 7021-8 #### [facility] CLIA [id number] [address] [place] [address] [place] Lymphocytes (Bld) [#/Vol] 2.01 10*3/uL Normal 1.00-4.00 [facility] Comment on above: Order Comment: Speci men Type: BLOOD SPECIMEN Ordering Facility: [facility] Address: [address] [place] [address] Performed By: #### 5 7021-8 #### [facility] CLIA [id number] [address] [place] [address] [place] Lymphocytes/100 WBC (Bld) 37.3 % Normal [facility] Comment on above: Order Comment: Speci men Type: BLOOD SPECIMEN Ordering Facility: [facility] Address: [address] [place] [address] Performed By: #### 5 7021-8 #### [facility] CLIA [id number] [address] [place] [address] [place] MCH (RBC) [Entitic mass] 29.1 pg Normal 26.0-34.0 [facility] Comment on above: Order Comment: Speci men Type: BLOOD SPECIMEN Ordering Facility: [facility] Address: [address] [place] [address] Performed By: #### 5 7021-8 #### [facility] CLIA [id number] [address] [place] [address] [place] MCHC (RBC) [Mass/Vol] 34.5 g/dL Normal 30.5-36.0 [facility] Comment on above: Order Comment: Speci men Type: BLOOD SPECIMEN Ordering Facility: [facility] Address: [address] [place] [address] Performed By: #### 5 7021-8 #### [facility] CLIA [id number] [address] [place] [address] [place] MCV (RBC) [Entitic vol] 84.2 fL Normal 80.0-100.0 [facility] Comment on above: Order Comment: Speci men Type: BLOOD SPECIMEN Ordering Facility: [facility] Address: [address] [place] [address] Performed By: #### 5 7021-8 #### [facility] CLIA [id number] [address] [place] [address] [place] Monocytes (Bld) [#/Vol] 0.41 10*3/uL Normal <0.87 [facility] Comment on above: Order Comment: Speci men Type: BLOOD SPECIMEN Ordering Facility: [facility] Address: [address] [place] [address] Performed By: #### 5 7021-8 #### [facility] CLIA [id number] [address] [place] [address] [place] Monocytes/100 WBC (Bld) 7.6 % Normal [facility] Comment on above: Order Comment: Speci men Type: BLOOD SPECIMEN Ordering Facility: [facility] Address: [address] [place] [address] Performed By: #### 5 7021-8 #### [facility] CLIA [id number] [address] [place] [address] [place] Neutrophils (Bld) [#/Vol] 2.70 10*3/uL Normal 1.45-7.50 [facility] Comment on above: Order Comment: Speci men Type: BLOOD SPECIMEN Ordering Facility: [facility] Address: [address] [place] [address] Performed By: #### 5 7021-8 #### [facility] CLIA [id number] [address] [place] [address] [place] Neutrophils/100 WBC (Bld) 50.1 % Normal [facility] Comment on above: Order Comment: Speci men Type: BLOOD SPECIMEN Ordering Facility: [facility] Address: [address] [place] [address] Performed By: #### 5 7021-8 #### [facility] CLIA [id number] [address] [place] [address] [place] Nucleated RBC (Bld) [#/Vol] 10*3/uL Normal <0.01 [facility] Comment on above: Order Comment: Speci men Type: BLOOD SPECIMEN Ordering Facility: [facility] Address: [address] [place] [address] Performed By: #### 5 7021-8 #### [facility] CLIA [id number] [address] [place] [address] [place] Nucleated RBC/100 WBC (Bld) [Ratio] 0.0 /100 WBC Normal [facility] Comment on above: Order Comment: Speci men Type: BLOOD SPECIMEN Ordering Facility: [facility] Address: [address] [place] [address] Performed By: #### 5 7021-8 #### [facility] CLIA [id number] [address] [place] [address] [place] Platelet mean volume (Bld) [Entitic vol] 9.4 fL Normal 9.0-12.7 [facility] Comment on above: Order Comment: Speci men Type: BLOOD SPECIMEN Ordering Facility: [facility] Address: [address] [place] [address] Performed By: #### 5 7021-8 #### [facility] CLIA [id number] [address] [place] [address] [place] Platelets (Bld) [#/Vol] 223 10*3/uL Normal 150-400 [facility] Comment on above: Order Comment: Speci men Type: BLOOD SPECIMEN Ordering Facility: [facility] Address: [address] [place] [address] Performed By: #### 5 7021-8 #### [facility] CLIA [id number] [address] [place] [address] [place] RBC (Bld) [#/Vol] 4.99 10*6/uL Normal 4.20-6.00 [facility] Comment on above: Order Comment: Speci men Type: BLOOD SPECIMEN Ordering Facility: [facility] Address: [address] [place] [address] Performed By: #### 5 7021-8 #### [facility] CLIA [id number] [address] [place] [address] [place] WBC (Bld) [#/Vol] 5.39 10*3/uL Normal 3.70-11.00 [facility] Comment on above: Order Comment: Speci men Type: BLOOD SPECIMEN Ordering Facility: [facility] Address: [address] [place] [address] Performed By: #### 5 7021-8 #### [facility] CLIA [id number] [address] [place] [address] [place] Comprehensive metabolic 2000 panelon 06-08-2022 Albumin [Mass/Vol] 4.2 g/dL Normal 3.9-4.9 [facility] Comment on above: Order Comment: Speci men Type: BLOOD SPECIMEN Ordering Facility: [facility] Address: [address] [place] [address] Performed By: #### 2 4323-8 #### [facility] CLIA [id number] [address] [place] [address] [place] ALP [Catalytic activity/Vol] 78 U/L Normal 38-113 [facility] Comment on above: Order Comment: Speci men Type: BLOOD SPECIMEN Ordering Facility: [facility] Address: [address] [place] [address] Performed By: #### 2 4323-8 #### [facility] CLIA [id number] [address] [place] [address] [place] ALT [Catalytic activity/Vol] 16 U/L Normal 10-54 [facility] Comment on above: Order Comment: Speci men Type: BLOOD SPECIMEN Ordering Facility: [facility] Address: [address] [place] [address] Performed By: #### 2 4323-8 #### [facility] CLIA [id number] [address] [place] [address] [place] Anion gap [Moles/Vol] 7 mmol/L Low 9-18 [facility] Comment on above: Order Comment: Speci men Type: BLOOD SPECIMEN Ordering Facility: [facility] Address: [address] [place] [address] Performed By: #### 2 4323-8 #### [facility] CLIA [id number] [address] [place] [address] [place] AST [Catalytic activity/Vol] 19 U/L Normal 14-40 [facility] Comment on above: Order Comment: Speci men Type: BLOOD SPECIMEN Ordering Facility: [facility] Address: [address] [place] [address] Performed By: #### 2 4323-8 #### [facility] CLIA [id number] [address] [place] [address] [place] Bilirubin [Mass/Vol] 0.8 mg/dL Normal 0.2-1.3 [facility] Comment on above: Order Comment: Speci men Type: BLOOD SPECIMEN Ordering Facility: [facility] Address: [address] [place] [address] Performed By: #### 2 4323-8 #### [facility] CLIA [id number] [address] [place] [address] [place] Calcium [Mass/Vol] 9.4 mg/dL Normal 8.5-10.2 [facility] Comment on above: Order Comment: Speci men Type: BLOOD SPECIMEN Ordering Facility: [facility] Address: [address] [place] [address] Performed By: #### 2 4323-8 #### [facility] CLIA [id number] [address] [place] [address] [place] Chloride [Moles/Vol] 102 mmol/L Normal 97-105 [facility] Comment on above: Order Comment: Speci men Type: BLOOD SPECIMEN Ordering Facility: [facility] Address: [address] [place] [address] Performed By: #### 2 4323-8 #### [facility] CLIA [id number] [address] [place] [address] [place] CO2 [Moles/Vol] 29 mmol/L Normal 22-30 [facility] Comment on above: Order Comment: Speci men Type: BLOOD SPECIMEN Ordering Facility: [facility] Address: [address] [place] [address] Performed By: #### 2 4323-8 #### [facility] CLIA [id number] [address] [place] [address] [place] Creatinine [Mass/Vol] 1.06 mg/dL Normal 0.73-1.22 [facility] Comment on above: Order Comment: Speci men Type: BLOOD SPECIMEN Ordering Facility: [facility] Address: [address] [place] [address] Performed By: #### 2 4323-8 #### [id number] [address] [place] [address] [place] ESTIMATED GLOMERULAR FILTRATION RATE 80 mL/min/1.73m??? Normal >=60 [facility] Comment on above: Order Comment: Speci men Type: BLOOD SPECIMEN Ordering Facility: [facility] Address: [address] [place] [address] Result Comment: Daisha mated Glomerular Filtration Rate (eGFR) is calculated using the 2020 CKD-EPI creatinine equation. This equation utilizes serum creatinine, sex, and age as parameters. The creatinine assay has traceable calibration to isotope dilution-mass spectrometry. Refer to KDIGO guidelines for clinical interpretation. In patients with unstable renal function, e.g. those with acute kidney injury, the eGFR may not accurately reflect actual GFR. Performed By: #### 2 4323-8 #### [facility] [id number] [address] [place] [address] [place] Glucose [Mass/Vol] 96 mg/dL Normal 74-99 [facility] Comment on above: Order Comment: Speci men Type: BLOOD SPECIMEN Ordering Facility: [facility] Address: [address] [place] [address] Result Comment: The [place] Diabetes Association (ADA) provides guidance for cutoff values for fasting glucose and random glucose. The ADA defines fasting as no caloric intake for at least 8 hours. Fasting plasma glucose results between 100 to 125 mg/dL indicate increased risk for diabetes (prediabetes). Fasting plasma glucose results greater than or equal to 126 mg/dL meet the criteria for diagnosis of diabetes. In the absence of unequivocal hyperglycemia, results should be confirmed by repeat testing. In a patient with classic symptoms of hyperglycemia or hyperglycemic crisis, random plasma glucose results greater than or equal to 200 mg/dL meet the criteria for diagnosis of diabetes. Reference: Standards of Medical Care in Diabetes 2016, [place] Diabetes Association. Diabetes Care. 2016.39(Suppl 1). Performed By: #### 2 4323-8 #### [facility] CLIA [id number] [address] [place] [address] [place] Potassium [Moles/Vol] 4.4 mmol/L Normal 3.7-5.1 [facility] Comment on above: Order Comment: Oliver el Type: BLOOD SPECIMEN Ordering Facility: [facility] Address: [address] [place] [address] Performed By: #### 2 4323-8 #### [facility] CLIA [id number] [address] [place] [address] [place] Protein [Mass/Vol] 7.0 g/dL Normal 6.3-8.0 [facility] Comment on above: Order Comment: Oliver el Type: BLOOD SPECIMEN Ordering Facility: [facility] Address: [address] [place] [address] Performed By: #### 2 4323-8 #### [facility] [id number] [address] [place] [address] [place] Sodium [Moles/Vol] 138 mmol/L Normal 136-144 [facility] Comment on above: Order Comment: Oliver el Type: BLOOD SPECIMEN Ordering Facility: [facility] Address: [address] [place] [address] Performed By: #### 2 4323-8 #### [facility] CLIA [id number] [address] [place] [address] [place] Urea nitrogen [Mass/Vol] 24 mg/dL Normal 9-24 [facility] Comment on above: Order Comment: Speci men Type: BLOOD SPECIMEN Ordering Facility: [facility] Address: [address] [place] [address] Performed By: #### 2 4323-8 #### [facility] CLIA [id number] [address] [place] [address] [place] Lipid 1996 panelon 3 Cholesterol [Mass/Vol] 175 mg/dL Normal <200 [facility] Comment on above: Order Comment: Speci men Type: BLOOD SPECIMEN Ordering Facility: [facility] Address: [address] [place] [address] Result Comment: <200 mg/dL, Desirable 200-239 mg/dL, Borderline high >239 mg/dL, High Performed By: #### 2 4331-1 #### [facility] CLIA [id number] [address] [place] [address] [place] [facility] CLIA [id number] [address] [place] [address] [place] Cholesterol in HDL [Mass/Vol] 56 mg/dL Normal >39 [facility] Comment on above: Order Comment: Johnnyi men Type: BLOOD SPECIMEN Ordering Facility: [facility] Address: [address] [place] [address] Result Comment: 40-5 9 mg/dL, Acceptable >59 mg/dL, High: Negative risk factor for coronary heart disease <40 mg/dL, Low: Positive risk factor for coronary heart disease Performed By: #### 2 4331-1 #### [facility] CLIA [id number] [address] [place] [address] [place] [facility] CLIA [id number] [address] [place] [address] [place] Cholesterol in LDL [Mass/Vol] 108 mg/dL High <100 [facility] Comment on above: Order Comment: Speci men Type: BLOOD SPECIMEN Ordering Facility: [facility] Address: [address] [place] [address] Result Comment: <100 mg/dL, Optimal 100-129 mg/dL, Near optimal/above optimal 130-159 mg/dL, Borderline high 160-189 mg/dL, High >189 mg/dL, Very high Secondary prevention optimal LDL Cholesterol levels are recommended to be < 70 mg/dL Performed By: #### 2 4331-1 #### [facility] CLIA [id number] [facility] [place] [address] [place] [facility] CLIA [id number] [address] [place] [address] [place] Cholesterol in LDL/Cholesterol in HDL [Mass ratio] 1.93 {ratio} Normal <2.54 [facility] Comment on above: Order Comment: Speci men Type: BLOOD SPECIMEN Ordering Facility: [facility] Address: [address] [place] [address] Result Comment: Refe rence: 1. National Cholesterol Education Program ATP III Guideline At-A-Glance Quick Desk Reference: National Heart, Lung, and Blood [place]. National Institutes of Health. 2001: NIH Publication No. 01-3305. 2. An International Atherosclerosis Society position paper: global recommendations for the management of dyslipidemia: executive summary, Atherosclerosis. 2014: 232(2):410-413. Performed By: #### 2 4331-1 #### [facility] CLIA [id number] [facility] [place] [address] [place] [facility] CLIA [id number] [address] [place] [address] [place] Cholesterol in VLDL [Mass/Vol] 11 mg/dL Normal <30 [facility] Comment on above: Order Comment: Speci men Type: BLOOD SPECIMEN Ordering Facility: [facility] Address: [address] [place] [address] Performed By: #### 2 4331-1 #### [facility] CLIA [id number] [facility] [place] [address] [place] [facility] CLIA [id number] [address] [place] [address] [place] Cholesterol non HDL [Mass/Vol] 119 mg/dL Normal <130 [facility] Comment on above: Order Comment: Speci men Type: BLOOD SPECIMEN Ordering Facility: [facility] Address: [address] [place] [address] Result Comment: <130 mg/dL, Optimal 130-159 mg/dL, Near optimal/above optimal 160-189 mg/dL, Borderline high 190-219 mg/dL, High >219 mg/dL, Very high Secondary prevention optimal non HDL Cholesterol levels are recommended to be <100 mg/dL Performed By: #### 2 4331-1 #### [facility] CLIA [id number] [facility] [place] [address] [place] [id number] [address] [place] [address] [place] Cholesterol.total/Chol esterol in HDL [Mass ratio] 3.13 {ratio} Normal <5.10 [facility] Comment on above: Order Comment: Speci men Type: BLOOD SPECIMEN Ordering Facility: [facility] Address: [address] [place] [address] Performed By: #### 2 4331-1 #### [facility] CLIA [id number] [facility] [place] [address] [place] [facility] CLIA [id number] [address] [place] [address] [place] FASTING TIME 12 hrs Normal [facility] Comment on above: Order Comment: Johnnyi men Type: BLOOD SPECIMEN Ordering Facility: [facility] Address: [address] [place] [address] Performed By: #### 2 4331-1 #### [facility] CLIA [id number] [facility] [place] [address] [place] [facility] CLIA [id number] [address] [place] [address] [place] Triglyceride [Mass/Vol] 54 mg/dL Normal <150 [facility] Comment on above: Order Comment: Speci men Type: BLOOD SPECIMEN Ordering Facility: [facility] Address: [address] [place] [address] Result Comment: <150 mg/dL, Normal 150-199 mg/dL, Borderline high 200-499 mg/dL, High >499 mg/dL, Very high Performed By: #### 2 4331-1 #### [facility] CLIA [id number] [address] [place] [address] [place] [facility] CLIA [id number] [address] [place] [address] [place] PSA/PROSTSPECAG SCRNon 06-08 Prostate specific Ag [Mass/Vol] 2.28 ng/mL Normal <2.60 [facility] Comment on above: Order Comment: Speci men Type: BLOOD SPECIMEN Ordering Facility: [facility] Address: [address] [place] [address] Result Comment: Tota l PSA test methodology used is the Electrochemiluminescence Immunoassay by [employer]. Total PSA values by differing methodologies cannot be interchanged. Performed By: #### P SAS1 #### [facility] CLIA [id number] [address] [place] [address] [place] Vital Signs Date Time Vital Sign Value Performing Clinician Faci armani 08-17-2024 10:55-0400 Body temperature 97.8 [degF] Dr. Heriberto Perry DO Work Phone: [facility] 08-17-2024 10:55-0400 Diastolic blood pressure 76 mm[Hg] Dr. Heriberto Perry DO Work Phone: [facility] 08-17-2024 10:55-0400 Heart rate 61 /min Dr. Heriberto Perry DO Work Phone: [facility] 08-17-2024 10:55-0400 Respiratory rate 16 /min Dr. Heriberto Perry DO Work Phone: [facility] 08-17-2024 10:55-0400 SaO2% (BldA) [Mass fraction] 97 % Dr. Heriberto Perry DO Work Phone: [facility] 08-17-2024 10:55-0400 Systolic blood pressure 92 mm[Hg] Dr. Heriberto Perry DO Work Phone: [facility] 08-17-2024 09:08-0400 Body height 177.[address] Heriberto Perry DO Work Phone: [facility] 08-17-2024 09:08-0400 Body mass index (BMI) [Ratio] 23.3 kg/m2 Dr. Heriberto Perry DO Work Phone: [facility] 08-17-2024 09:08-0400 Body weight 73.[address] Heriberto Perry DO Work Phone: [facility] 07-11-2024 14:55-0500 Body mass index (BMI) [Ratio] 25.1 kg/m2 Dr. Heriberto Perry DO Work Phone: [facility] 07-11-2024 14:55-0500 Body temperature 97.8 [degF] Dr. Heriberto Perry DO Work Phone: [facility] 07-11-2024 14:55-0500 Body weight 79.[address] Heriberto Perry DO Work Phone: [facility] 07-11-2024 14:55-0500 Diastolic blood pressure 87 mm[Hg] Dr. Heriberto Perry DO Work Phone: [facility] 07-11-2024 14:55-0500 Heart rate 69 /min Dr. Heriberto Perry DO Work Phone: [facility] 07-11-2024 14:55-0500 Respiratory rate 18 /min Dr. Heriberto Perry DO Work Phone: [facility] 07-11-2024 14:55-0500 SaO2% (BldA) [Mass fraction] 99 % Dr. Heriberto Perry DO Work Phone: [facility] 07-11-2024 14:55-0500 Systolic blood pressure 168 mm[Hg] Dr. Heriberto Perry DO Work Phone: [facility] Encounters Encounter Date Encounter Type Care Provider Facility Start: 03-07-2025 Encounter for genera l adult medical examination without abnormal findings [facility] Start: 03-07-2025 ambulatory [facility] Facility: [facility] Start: 08-17-2024 ambulatory [facility] Facility: [facility] Start: 08-17-2024 Non-patient / Non-visit Dr. Leanne Mascorro MD -[facility] Start: 08-17-2024 End: 08-17-2024 Admission to same day surgery center Dr. Lexx Mascorro MD -Endoscopy Work Phone: Start: 08-17-2024 End: 08-17-[address] Heriberto Perry DO Work Phone: [facility] Work Phone: Start: 07-11-2024 End: 07-11-[address] Lexx Mascorro MD -[facility] Work Phone: Start: 07-11-2024 End: 07-11-2024 [facility] Start: 07-03-2024 Encounter for genera l adult medical examination without abnormal findings [facility] Start: 06-07-2024 End: 06-07-[address] Heriberto Perry DO -Laboratory Work Phone: Start: 06-07-2024 End: 06-07-2024 ambulatory Heriberto Vicky Facility:[facility] Start: 06-14-2023 End: 06-14-2023 ambulatory [facility] Work Phone: Start: 06-14-2023 End: 06-14-2023 Patient encounter procedure [facility]-Laboratory, James Moraes DON Start: 06-07-2023 End: 06-07-2023 ambulatory [facility] Work Phone: Start: 06-07-2023 End: 06-07-2023 Patient encounter procedure [facility] Work Phone: Start: 06-08-2022 End: 06-08-2022 ambulatory Facility:[facility] Procedures Date Procedure Procedure Detail Performing Clinician Start: 08-17-[address] Heriberto crane DO Work Phone: Plan of Treatment Date Care Activity Detail Author Start: 08-17-2024 Patient discharge [facility] Colonoscopy [facility] Patient referral [facility] Work Phone: [facility] Payers Date Payer Category Payer Self-pay 2020 Unknown [id number] Unknown [id number] 2.16.8 [id number] Unknown [id number] 2.16.8 [id number] Unknown [id number] 2.16.8 [id number] Unknown [id number] 2.16.8 [id number] Unknown [id number] 2.16.8 [id number] Social History Date Type Detail Facility Tobacco smoking stat us NHIS Unknown if ever smoked [facility] Work Phone: Start: 1960 Sex Assigned At Male [facility] Start: 08-16-2024 [facility] Start: 08-17-2024 Sex Male (finding) [facility] Goals Date Patient Goal Desired Activity /State Mental Status Date Assessment Result Facility 08-17-2024 Cognitive function [facility] Work Phone: 08-17-2024 Cognitive function Patient Oriyusuf humphries Person;Place;Time [facility] Work Phone: Clinical Notes 07-11-2024 to 08-17-2024 Note Date & Type Note Facility 08-17-2024 Consult note Note Date/Time August 17, 2024 8:52am [facility] Medical Records Department [address] [place] [address] Pre-Anesthesia Evaluation 08/17/24 0852 MR#: [id number] Acct: [id number] Name: PAUL RAMÍREZ Rep #:[id number] : 1960 64 From: Lit Acosta MD PCP: Dr. Heriberto Perry, DO Status:REG SDC Y Race: C Location: [place] [address] ASA Classification* ASA Classification ASA Classification: 2 Assessment & Plan Anesthesia* Anesthesia Assessment Anesthesia Assessment: Discussed sedation and/or anesthesia options, risks, benefits, and alternatives with patient/parents/legal guardian/POA. Questions invited. The patient/parents/legal guardian/POA seems to understand and agrees to proceedwith anesthesia plan. Reviewed the physical assessment, medical history, allergy history and patient home medications list prior to surgery/procedure/anesthetic and documented any changes. Performed airway and anesthesia risk assessments. Anesthesia Type Anesthesia Type: MAC Anesthesia Focused Assessment* Airway Assessment Mouth opens: >3 cm Mallampati Score: II Focused Labs Anesthesia Preop lab: CBC WBC 6.0 K/mm3 (4.4-11.0) 06/07/24 06:16 06/07/24 RBC 4.97 M/mm3 (4.6-6.2) 06/07/24 06:16 06/07/24 Hgb 14.4 g/dL (13.0-16.5) 06/07/24 06:16 06/07/24 Hct 42.4 % (40-54) 06/07/24 06:16 06/07/24 Plt Count 218 K/mm3 (150-450) 06/07/24 06:16 06/07/24 CHEMISTRY Potassium 3.8 mmol/L (3.5-5.1) 06/07/24 06:16 06/07/24 Sodium 139 mmol/L (136-145) 06/07/24 06:16 06/07/24 BUN 21 mg/dL (7-18) H 06/07/24 06:16 06/07/24 Creatinine 1.07 mg/dL (0.70-1.30) 06/07/24 06:16 06/07/24 Glucose 95 mg/dL (74-106) 06/07/24 06:16 06/07/24 COAG Pre-Assessment Diagnosis/Proposed Procedure Planned Operative Procedure(s): EGD, COLONOSCOPY Anesthesia History Anesthesia History - busser: Anesthesia History - busser Hx Hospitalization No 08/16/24 11:49 Any Problems With Anesthesia No 08/16/24 11:49 Cholinesterase deficiency No 08/16/24 11:49 You/Your Family Experience No 08/16/24 11:49 fever (hyperthermia) with Relationship Recent Exposure to Contagious Disease Does patient have nerve No 08/16/24 11:49 stimulator Patient instructed to have device shut off --Does patient have Pacemaker or ICD? When Was Last Pacemaker Check QUESTION #4 FULL TEXT: You/Your Family Experience fever (hyperthermia) with Anesthesia Last Oral Intake Last Oral intake: Last Oral Intake NPO since Meds taken in AM with sips of water? Meds patient instructed to take am of surgery PONV PONV - busser: PONV - busser Female No 08/16/24 11:49 HX of Motion Sickness No 08/16/24 11:49 HX of N/V After Surgery No 08/16/24 11:49 Non-Smoker Yes 08/16/24 11:49 Duration of Surgery greater No 08/16/24 11:49 than 60 minutes Number of Risk Factors 1 08/16/24 11:49 PONV Score Low Risk 08/16/24 11:49 Height & Weight Height & Weight: Anesthesia: Height & Weight Height 5 ft 10 in 07/11/24 14:55 Respiratory Assessment Respiratory Assessment - busser: Respiratory Tract Infection Hx - busser Hx Respiratory Tract Infection No 08/16/24 11:49 STOP Sleep Apnea STOP Sleep Apnea - busser: STOP Sleep Apnea - busser Hx Hypertension Yes 08/16/24 11:49 Hx Sleep Apnea No 08/16/24 11:49 CPAP BIPAP Do you snore loudly (louder No 08/16/24 11:49 than talking or can be heard Do you often feel tired/ No 08/16/24 11:49 fatigued/ sleepy during daytime? Has anyone observed you stop No 08/16/24 11:49 breathing during sleep? STOP Results Negative 08/16/24 11:49 QUESTION #5 FULL TEXT : Do you snore loudly (louder than talking or can be heard through closed doors)? Tobacco Use History Tobacco Use History - busser: Tobacco Use History - busser Tobacco Use Smoking Status Never smoker 08/16/24 11:49 Hx Tobacco Use No 08/16/24 11:49 Years Smoking Packs Smoked per Day Smoking Cessation Date was within the last 15 years Hx Smoking Cessation Date Hx Smoking Cessation Counseling Hematologic Medial History Hematologic Hx - busser: Hematologic Medical Hx - sorter upholstery parts Hx of Blood Transfusion No 08/16/24 11:49 Hx of Transfusion in last 3 No 08/16/24 11:49 Months Date of Last Transfusion (if within last 3 months) Ever experience any problems No 08/16/24 11:49 with transfusion(s)? Specify any problems Hx of Preganancy in last 3 N/A 08/16/24 11:49 Months Nurse Filling Out Transfusion [facility] 08/16/24 11:49 & Questions: Date: 08/16/24 08/16/24 11:49 Time: 11:55 08/16/24 11:49 Patient unable to answer at this time (ie. confused, unrespo /Reproduction History /Reproductive History - busser: /Reproductive Hx- busser Hx Now Gestational Age (in weeks): EDC: Hx Hx Para Hx Section SAB PFSH Medical History Wears contact lenses Non-smoker Leg cramps Hypertension Hemorrhoids Positive fecal occult blood test Home Medications ?Medication ?Instructions ?Recorded ?Last Taken ?Type lisinopril 20 1 tab PO DAILY HYPERTESION 0 07/12/24 Unknown History mg-hydrochlorothiazide 12.5 mg tablet Allergy/AdvReac Type Severity Reaction Status Date / Time No Known Allergies Allergy Verified 08/16/24 11:48 Surgical History History of ankle surgery Hx of tonsillectomy Social History Smoking Status: Never smoker alcohol intake: never substance use type: does not use Review of Systems (Anesthesia) ROS Narrative System reviewed and no additional complaints, except as documented. 08/17/24851 <Electronically signed by Lit Acosta MD > Date _ Lit Acosta MD Cosigner Signature: Date CC: ~ Signed [facility] Work Phone: [phone] 661-763703-14-2025 Consult note [facility] Medical Records Department [address] [place] [address] Anesthesia Postop Eval I 08/17/24 1038 MR#: [id number] Acct: [id number] Name: ISABELPAUL PETERSEN Rep #:[id number] : 1960 64 From: Jean-Claude Madsen PCP: Dr. Heriberto Perry, DO Status:REG SDC Y Race: C Location: [place] [address] Anesthesia: Postop Eval I Current Vital Signs Temperature: 97.4 F Pulse Rate: 64 Blood Pressure: 89/61 Respiratory Rate: 16 Pulse Ox: 98 Oxygen Delivery Method: Room Air Assessment Airway patent: Yes Spontaneous unlabored respirations: Yes Mental status: Asleep nausea: No Vomiting: No Anesthesia Complication: Yes Anesthesia Complication Comment:: in situ IV infiltrated, 2nd IV placed by anesthesia Fluid Hydration Crystalloid volume administer (ml): 60 Total IV fluid infused: 60 Progress Note Anesthesia document: Postop Eval 1 completed: Yes 08/17/24 1039 > Date _ Jean-Claude Hathaway Signature: Date CC: ~ Signed [facility]03-14-2025 Procedure note [facility] Medical Records Department [address] [place] [address] Colonoscopy Report MR#: [id number] Acct: [id number] Name: PAUL RAMÍREZ Rep #:[id number] : 1960 64 From: Lexx elder MD PCP: Dr. Heriberto Perry, DO Status:REG FLC Patient Name: Paul Ramírez Procedure Date: 08/17/2024 10:17 AM Date of : 1960 Age: 64 Procedure: Colonoscopy Indications: Gastrointestinal occult blood loss Providers: Lexx Mascorro MD Medicines: Propofol per Anesthesia Patient Profile: This is a 64 year old male. Refer to note in patient chart for documentation of history and physical. Last Colonoscopy: several years ago. Complications: No immediate complications. Procedure: Pre-Anesthesia Assessment: - Prior to the procedure, a History and Physical was performed, and patient medications and allergies were reviewed. The patient's tolerance of previous anesthesia was also reviewed. The risks and benefits of the procedure and the sedation options and risks were discussed with the patient. All questions were answered, and informed consent was obtained. Prior Anticoagulants: The patient has taken no anticoagulant or antiplatelet agents. After reviewing the risks and benefits, the patient was deemed in satisfactory condition to undergo the procedure. After I obtained informed consent, the scope was passed under direct vision. Throughout the procedure, the patient's blood pressure, pulse, and oxygen saturations were monitored continuously. The pediatric colonoscope was introduced through the anus and advanced to the cecum, identified by appendiceal orifice and ileocecal valve. The colonoscopy was performed without difficulty. The patient tolerated the procedure well. The quality of the bowel preparation was good. The ileocecal valve, appendiceal orifice, and rectum were photographed. Scope In: 10:17:57 AM Scope Withdrawal Time 0 hours 6 minutes 21 seconds Scope Out: 10:30:13 AM Total Procedure Duration Time 0 hours 12 minutes 16 seconds Findings: The entire examined colon appeared normal on direct and retroflexion views. Impression: - The entire examined colon is normal on direct and retroflexion views. - No specimens collected. Recommendation: - Discharge patient to home. - Resume previous diet. - Continue present medications. - Repeat colonoscopy in 10 years for screening purposes. Procedure Code(s): --- Professional --- 45594, Colonoscopy, flexible; diagnostic, including collection of specimen(s) by brushing or washing, when performed (separate procedure) Diagnosis Code(s): --- Professional --- R19.5, Other fecal abnormalities CPT copyright 2021 [employer]. All rights reserved. The codes documented in this report are preliminary and upon clamp forklift operator review may be revised to meet current compliance requirements. Lexx Mascorro MD 08/17/2024 10:32:03 AM This report has been signed electronically. Number of Addenda: 0 Note Initiated On: 08/17/2024 10:17 AM 08/17/24 1032 Date _ [facility]ascorro [facility]: Date (if indicated) CC: Dr. Lexx Mascorro MD; Dr. Heriberto Perry, ~ Date Dictated: 08/17/24 1017 Date Transcribed: Accountant Assistant: AC Signed [facility]03-14-2025 Procedure note [facility] Medical Records Department [address] [place] [address] Operative Report - CC Letter MR#: [id number] Acct: [id number] Name: PAUL RAMÍREZ Rep #:[id number] : 1960 64 From: Lexx elder MD PCP: Dr. eHriberto Perry, Status:[place] [facility] 08/17/2024 Heriberto Perry [address] [facility] [place] [address] [place] [address] Re : Colonoscopy procedure for Paul Ramírez Dear Dr. Perry This procedure was performed on Saturday, August 17, 2024. My impressions and recommendations are as follows: Impressions : - The entire examined colon is normal on direct and retroflexion views. - No specimens collected. Recommendations : - Discharge patient to home. - Resume previous diet. - Continue present medications. - Repeat colonoscopy in 10 years for screening purposes. My findings are described in the full procedure note, which is enclosed. If I can be of further assistance, please feel free to contact me at Doctor phone number(s): , Work: . Sincerely, Lexx Mascorro MD 08/17/2024 10:32:03 AM This report has been signed electronically. 08/17/24 1032 Date _ Lexx Mascorro MD Cosigner Signature: Date (if indicated) CC: Dr. Lexx Mascorro MD; Dr. Heriberto Perry DO ~ Date Dictated: 08/17/24 1017 Date Transcribed: Accountant Assistant: AC Signed [facility]03-14-2025 Procedure note [facility] Medical Records Department [address] [place] [address] EGD Report MR#: [id number] Acct: [id number] Name: PAUL RAMÍREZ Rep #:[id number] : 1960 64 From: Lexx elder MD PCP: Dr. Heriberto Perry, Status:[facility] Patient Name: Paul Ramírez Procedure Date: 08/17/2024 9:48 AM Date of : 1960 Age: 64 Procedure: Upper GI endoscopy Indications: Occult blood in stool Providers: Lexx Mascorro MD Medicines: Propofol per Anesthesia Patient Profile: This is a 64 year old male. Refer to note in patient chart for documentation of history and physical. Complications: No immediate complications. Procedure: Pre-Anesthesia Assessment: - Prior to the procedure, a History and Physical was performed, and patient medications and allergies were reviewed. The patient's tolerance of previous anesthesia was also reviewed. The risks and benefits of the procedure and the sedation options and risks were discussed with the patient. All questions were answered, and informed consent was obtained. Prior Anticoagulants: The patient has taken no anticoagulant or antiplatelet agents. After reviewing the risks and benefits, the patient was deemed in satisfactory condition to undergo the procedure. After obtaining informed consent, the endoscope was passed under direct vision. Throughout the procedure, the patient's blood pressure, pulse, and oxygen saturations were monitored continuously. The pediatric colonoscope was introduced through the mouth, and advanced to the third part of duodenum. The upper GI endoscopy was accomplished without difficulty. The patient tolerated the procedure well. Scope In: 10:15:02 AM Scope Out: 10:17:00 AM Total Procedure Duration Time 0 hours 1 minute 58 seconds Findings: The esophagus was normal. The stomach was normal. The examined duodenum was normal. Impression: - Normal esophagus. - Normal stomach. - Normal examined duodenum. - No specimens collected. Recommendation: - Discharge patient to home. - Resume previous diet. - Continue present medications. Procedure Code(s): --- Professional --- 59457, Esophagogastroduodenoscopy, flexible, transoral; diagnostic, including collection of specimen(s) by brushing or washing, when performed (separate procedure) Diagnosis Code(s): --- Professional --- R19.5, Other fecal abnormalities CPT copyright 2021 [employer]. All rights reserved. The codes documented in this report are preliminary and upon clamp forklift operator review may be revised to meet current compliance requirements. Lexx Mascorro MD 08/17/2024 10:30:52 AM This report has been signed electronically. Number of Addenda: 0 Note Initiated On: 08/17/2024 9:48 AM 08/17/24 1030 Date _ Lexx Hathaway Signature: Date (if indicated) CC: Dr. Lexx Mascorro MD; Dr. Heriberto Perry, DO ~ Date Dictated: 08/17/24 0948 Date Transcribed: Accountant Assistant: AC Signed [facility]03-14-2025 Procedure note [facility] Medical Records Department [address] [place] [address] Operative Report - CC Letter MR#: [id number] Acct: [id number] Name: PAUL RAMÍREZ Rep #:[id number] : 1960 64 From: Lexx elder MD PCP: Dr. Heriberto Perry, DO Status:[place] [facility] 08/17/2024 Heriberto Perry [address] [facility] [place] [address] Re : Upper GI endoscopy procedure for Paul Ramírez Dear Dr. Perry This procedure was performed on Saturday, August 17, 2024. My impressions and recommendations are as follows: Impressions : - Normal esophagus. - Normal stomach. - Normal examined duodenum. - No specimens collected. Recommendations : - Discharge patient to home. - Resume previous diet. - Continue present medications. My findings are described in the full procedure note, which is enclosed. If I can be of further assistance, please feel free to contact me at Doctor phone number(s): , Work: . Sincerely, Lexx Mascorro MD 08/17/2024 10:30:52 AM This report has been signed electronically. 08/17/24 1030 Date _ Lexx Hathaway Signature: Date (if indicated) CC: Dr. Lexx Mascorro MD; Dr. Heriberto Perry, DO ~ Date Dictated: 08/17/2448 Date Transcribed: Accountant Assistant: FRANCIA Deng [facility]03-14-2025 History and physical note [facility] Medical Records Department [address] [place] [address] History & Physical Exam 08/17/2446 MR#: [id number] Acct: [id number] Name: PAUL RAMÍREZ Rep #:[id number] : 1960 64 From: Lexx elder MD PCP: Dr. Heriberto Perry, Status:[place] [facility] Location: [address] History and Physical Date of Admission: 08/17/24 Intake Vital Signs 07/11/2513:55 Height 5 ft 10 in Weight: 175 lb 4 oz BMI 25.1 BP 168/87 H Blood Pressure Location Rt brachial Position Sitting Respiration 18 Pulse 69 Pulse Source Monitor Temp 97.8 F Temp Source Temporal Pulse Oximetry (%) 99 Oxygen Delivery Method room air Intake Visit Reasons: BLOOD IN STOOL Chief Complaint: blood in stool Is patient in pain?: No Allergies No Known Allergies Allergy (Unverified 07/11/24 14:57) Medications ?Medication ?Instructions ?Recorded ?Confirmed ?Type NK 07/11/24 07/11/24 History PFSH Medical History (Updated 07/11/24 @ 14:55 by Lizette Rey LPN) Hypertension Hemorrhoids Positive fecal occult blood test Surgical History (Updated 07/11/24 @ 14:55 by Lizette Rey LPN) Hx of tonsillectomy Social History (Updated 07/11/24 @ 14:55 by Lizette Rey LPN) Smoking Status: Never smoker alcohol intake: never substance use type: does not use HPI HPI HPI: Patient is a 64-year-old male here for positive fecal occult blood test. The patient has never had a colonoscopy in the past. He has never had an EGD. He denies abdominal pain or blood in the stool. He denies black and tarry stools as well. ROS General General: No weight change, appetite, fatigue, colon cancer, breast cancer or weakness HEENT HEENT: No difficulty swallowing, eye injury, eye surgery, swollen glands or hoarseness Endo Endocrine: No thyroid disease, diabetes mellitus, thyroid cancer, Hair loss, heat intolerance or cold intolerance Skin Skin: No rash or changing moles Musc Musculoskeletal: No back problems, arthritis, rheumatoid arthritis, gout or joint pain Cardio Cardiovascular: Yes high blood pressure; No murmur, pacemaker, heart disease, atrial fibrillation, heart attack, heart stent, palpitations, shortness of breat with exertion or chest pain Psych Psychiatric: No depression, anxiety or hearing voices Resp Respiratory: No shortness of breath, No sleep apnea, No cough, No COPD, No asthma, No emphysema andNo wheezing Gastro Gastrointestinal: No abdominal pain, No nausea or vomiting, No diarrhea, No constipation, Yes bloodin stool, No acid reflux, Yes hemorrhoids, No ulcers, Nogallbladder problem and No black,tarry stools [place] Hematologic: No blood thinners, No blood disorders, No bleeding, No anemia and No blood clots Neuro Neurologic: No numbness, No tingling and No weakness Exam Const General: cooperative Orientation: alert and oriented x3 HENMT Head: normal to inspection Neck Neck: normal visual inspection and full ROM Chest Chest palpation & inspection: normal inspection of the chest Resp Effort & Inspection: normal respiratory effort Auscultation: clear to auscultation bilaterally Cardio Rate: regular rate Rhythm: regular rhythm GI Inspection: non-distended Palpation: soft and nontender Skin General: no rashes or lesions noted Neuro General: patient alert and patient oriented x3 Extrem General: full ROM Psych Appearance: grossly normal Mental Status: mental status grossly normal Assessment and Plan Assessment and Plan (1) Positive fecal occult blood test: Status: Acute Plan: Given the positive fecal occult blood test I would recommend the patient have anEGD and colonoscopy. He has never had a screening colonoscopy in the past. I explained endoscopy in detail to the patient. I explained the risks including but not limited to stroke or heart attack with anesthesia, perforation of the GItract, bleeding, infection. I explained that any of these could necessitate further emergency surgery. The patient understands and all questions were answered sufficiently. The patientwishes to proceed with procedure. Lexx Mascorro MD Pager: [facility] [address] [place] [address], [address] [place] [address] Office: I have examined the patient and the H&P has been reviewed. There are no clinicalchanges since date of exam. 08/17/24 0947 Cosigner Signature (if applicable): CC: Dr. Lexx Mascorro MD; Dr. Heriberto Perry, DO~ Signed [facility]03-14-2025 [facility] Medical Records Department [address] [place] [address] History Physical Exam 08/17/24 0946 MR#: [id number] Acct: [id number] Name: PAUL RAMÍREZ Rep #: [id number] : 1960 64 From: Lexx Mascorro MD PCP: Dr. Heriberto Perry, Status:[place] [facility] [place]: [place] [address] History and Physical Date of Admission: 08/17/24 Intake Vital Signs 07/11/2513:55 Height 5 ft 10 in Weight: 175 lb 4 oz BMI 25.1 BP 168/87 H Blood Pressure Location Rt brachial Position Sitting Respiration 18 Pulse 69 Pulse Source Monitor Temp 97.8 F Temp Source Temporal Pulse Oximetry (%) 99 Oxygen Delivery Method room air Intake Visit Reasons: BLOOD IN STOOL Chief Complaint: blood in stool Is patient in pain?: No Allergies No Known Allergies Allergy (Unverified 07/11/24 14:57) Medications ???Medication ???Instructions ???Recorded ???Confirmed ???Type NK 07/11/24 07/11/24 History PFSH Medical History (Updated 07/11/24 @ 14:55 by Lizette Rey LPN) Hypertension Hemorrhoids Positive fecal occult blood test Surgical History (Updated 07/11/24 @ 14:55 by Lizette Rey LPN) Hx of tonsillectomy Social History (Updated 07/11/24 @ 14:55 by Lizette Rey LPN) Smoking Status: Never smoker alcohol intake: never substance use type: does not use HPI HPI HPI: Patient is a 64-year-old male here for positive fecal occult blood test. The patient has never had a colonoscopy in the past. He has never had an EGD. He denies abdominal pain or blood in the stool. He denies black and tarry stools as well. ROS General General: No weight change, appetite, fatigue, colon cancer, breast cancer or weakness HEENT HEENT: No difficulty swallowing, eye injury, eye surgery, swollen glands or hoarseness Endo Endocrine: No thyroid disease, diabetes mellitus, thyroid cancer, Hair loss, heat intolerance or cold intolerance Skin Skin: No rash or changing moles Musc Musculoskeletal: No back problems, arthritis, rheumatoid arthritis, gout or joint pain Cardio Cardiovascular: Yes high blood pressure; No murmur, pacemaker, heart disease, atrial fibrillation, heart attack, heart stent, palpitations, shortness of breat with exertion or chest pain Psych Psychiatric: No depression, anxiety or hearing voices Resp Respiratory: No shortness of breath, No sleep apnea, No cough, No COPD, No asthma, No emphysema and No wheezing Gastro Gastrointestinal: No abdominal pain, No nausea or vomiting, No diarrhea, No constipation, Yes blood in stool, No acid reflux, Yes hemorrhoids, No ulcers, No gallbladder problem and No black,tarry stools [place] Hematologic: No blood thinners, No blood disorders, No bleeding, No anemia and No blood clots Neuro Neurologic: No numbness, No tingling and No weakness Exam Const General: cooperative Orientation: alert and oriented x3 HENMT Head: normal to inspection Neck Neck: normal visual inspection and full ROM Chest Chest palpation inspection: normal inspection of the chest Resp Effort Inspection: normal respiratory effort Auscultation: clear to auscultation bilaterally Cardio Rate: regular rate Rhythm: regular rhythm GI Inspection: non-distended Palpation: soft and nontender Skin General: no rashes or lesions noted Neuro General: patient alert and patient oriented x3 Extrem General: full ROM Psych Appearance: grossly normal Mental Status: mental status grossly normal Assessment and Plan Assessment and Plan (1) Positive fecal occult blood test: Status: Acute Plan: Given the positive fecal occult blood test I would recommend the patient have an EGD and colonoscopy. He has never had a screening colonoscopy in the past. I explained endoscopy in detail to the patient. I explained the risks including but not limited to stroke or heart attack with anesthesia, perforation of the GI tract, bleeding, infection. I explained that any of these could necessitate further emergency surgery. The patient understands and all questions were answered sufficiently. The patient wishes to proceed with procedure. Lexx Mascorro MD Pager: [facility] [address], [address] [place] [address] Office: I have examined the patient and the H P has been reviewed. There are no clinical changes since date of exam. 08/17/24 0947 Cosigner Signature (if applicable): CC: Dr. Lexx Mascorro MD; Dr. Heriberto Perry DO [facility] Consult note [facility] Medical Records Department [address] [place] [address] Pre-Anesthesia Evaluation 08/17/24 0852 MR#: [id number] Acct: [id number] Name: PAUL RAMÍREZ Rep #:[id number] : 1960 64 From: Lit Acosta MD PCP: Dr. Heriberto Perry DO Status:REG SDC Y Race: C Location: [place] [address] ASA Classification* ASA Classification ASA Classification: 2 Assessment & Plan Anesthesia* Anesthesia Assessment Anesthesia Assessment: Discussed sedation and/or anesthesia options, risks, benefits, and alternatives with patient/parents/legal guardian/POA. Questions invited. The patient/parents/legal guardian/POA seems to understand and agrees to proceedwith anesthesia plan. Reviewed the physical assessment, medical history, allergy history and patient home medications list prior to surgery/procedure/anesthetic and documented any changes. Performed airway and anesthesia risk assessments. Anesthesia Type Anesthesia Type: MAC Anesthesia Focused Assessment* Airway Assessment Mouth opens: >3 cm Mallampati Score: II Focused Labs Anesthesia Preop lab: CBC WBC 6.0 K/mm3 (4.4-11.0) 06/07/24 06:16 06/07/24 RBC 4.97 M/mm3 (4.6-6.2) 06/07/24 06:16 06/07/24 Hgb 14.4 g/dL (13.0-16.5) 06/07/24 06:16 06/07/24 Hct 42.4 % (40-54) 06/07/24 06:16 06/07/24 Plt Count 218 K/mm3 (150-450) 06/07/24 06:16 06/07/24 CHEMISTRY Potassium 3.8 mmol/L (3.5-5.1) 06/07/24 06:16 06/07/24 Sodium 139 mmol/L (136-145) 06/07/24 06:16 06/07/24 BUN 21 mg/dL (7-18) H 06/07/24 06:16 06/07/24 Creatinine 1.07 mg/dL (0.70-1.30) 06/07/24 06:16 06/07/24 Glucose 95 mg/dL (74-106) 06/07/24 06:16 06/07/24 COAG Pre-Assessment Diagnosis/Proposed Procedure Planned Operative Procedure(s): EGD, COLONOSCOPY Anesthesia History Anesthesia History - busser: Anesthesia History - busser Hx Hospitalization No 08/16/24 11:49 Any Problems With Anesthesia No 08/16/24 11:49 Cholinesterase deficiency No 08/16/24 11:49 You/Your Family Experience No 08/16/24 11:49 fever (hyperthermia) with Relationship Recent Exposure to Contagious Disease Does patient have nerve No 08/16/24 11:49 stimulator Patient instructed to have device shut off --Does patient have Pacemaker or ICD? When Was Last Pacemaker Check QUESTION #4 FULL TEXT: You/Your Family Experience fever (hyperthermia) with Anesthesia Last Oral Intake Last Oral intake: Last Oral Intake NPO since Meds taken in AM with sips of water? Meds patient instructed to take am of surgery PONV PONV - busser: PONV - busser Female No 08/16/24 11:49 HX of Motion Sickness No 08/16/24 11:49 HX of N/V After Surgery No 08/16/24 11:49 Non-Smoker Yes 08/16/24 11:49 Duration of Surgery greater No 08/16/24 11:49 than 60 minutes Number of Risk Factors 1 08/16/24 11:49 PONV Score Low Risk 08/16/24 11:49 Height & Weight Height & Weight: Anesthesia: Height & Weight Height 5 ft 10 in 07/11/24 14:55 Respiratory Assessment Respiratory Assessment - busser: Respiratory Tract Infection Hx - busser Hx Respiratory Tract Infection No 08/16/24 11:49 STOP Sleep Apnea STOP Sleep Apnea - busser: STOP Sleep Apnea - busser Hx Hypertension Yes 08/16/24 11:49 Hx Sleep Apnea No 08/16/24 11:49 CPAP BIPAP Do you snore loudly (louder No 08/16/24 11:49 than talking or can be heard Do you often feel tired/ No 08/16/24 11:49 fatigued/ sleepy during daytime? Has anyone observed you stop No 08/16/24 11:49 breathing during sleep? STOP Results Negative 08/16/24 11:49 QUESTION #5 FULL TEXT : Do you snore loudly (louder than talking or can be heard through closeddoors)? Tobacco Use History Tobacco Use History - busser: Tobacco Use History - busser Tobacco Use Smoking Status Never smoker 08/16/24 11:49 Hx Tobacco Use No 08/16/24 11:49 Years Smoking Packs Smoked per Day Smoking Cessation Date was within the last 15 years Hx Smoking Cessation Date Hx Smoking Cessation Counseling Hematologic Medial History Hematologic Hx - busser: Hematologic Medical Hx - sorter upholstery parts Hx of Blood Transfusion No 08/16/24 11:49 Hx of Transfusion in last 3 No 08/16/24 11:49 Months Date of Last Transfusion (if within last 3 months) Ever experience any problems No 08/16/24 11:49 with transfusion(s)? Specify any problems Hx of Preganancy in last 3 N/A 08/16/24 11:49 Months Nurse Filling Out Transfusion EHAURORA 08/16/24 11:49 & Questions: Date: 08/16/24 08/16/24 11:49 Time: 11:55 08/16/24 11:49 Patient unable to answer at this time (ie. confused, unrespo /Reproduction History /Reproductive History - busser: /Reproductive Hx- busser Hx Now Gestational Age (in weeks): EDC: Hx Hx Para Hx Section SAB PFSH Medical History Wears contact lenses Non-smoker Leg cramps Hypertension Hemorrhoids Positive fecal occult blood test Home Medications ?Medication ?Instructions ?Recorded ?Last Taken ?Type lisinopril 20 1 tab PO DAILY HYPERTESION 0 07/12/24 Unknown History mg-hydrochlorothiazide 12.5 mg tablet Allergy/AdvReac Type Severity Reaction Status Date / Time No Known Allergies Allergy Verified 08/16/24 11:48 Surgical History History of ankle surgery Hx of tonsillectomy Social History Smoking Status: Never smoker alcohol intake: never substance use type: does not use Review of Systems (Anesthesia) ROS Narrative System reviewed and no additional complaints, except as documented. 08/17/24 0852 > Date _ Lit Acosta MD Cosigner Signature: Date CC: ~ Signed [facility]02-05-2025 Evaluation note* Diagnosis Onset Date Resolution Status Admit Date Positive fecal occult blood test acute July 11 2:43pm [facility] Work Phone: Consult note Author Jean-Claude Madsen [facility] Note Date/Time August 17, 2024 10: 39am [facility] Medical Records Department [address] [place] [address] Anesthesia Postop Eval I 08/17/24 1038 MR#: [id number] Acct: [id number] Name: PAUL RAMÍREZ Rep #:[id number] : 1960 64 From: Jean-Claude Madsen PCP: Dr. Heriberto Perry, DO Status:REG SDC Y Race: C Location: [place] [address] Anesthesia: Postop Eval I Current Vital Signs Temperature: 97.4 F Pulse Rate: 64 Blood Pressure: 89/61 Respiratory Rate: 16 Pulse Ox: 98 Oxygen Delivery Method: Room Air Assessment Airway patent: Yes Spontaneous unlabored respirations: Yes Mental status: Asleep nausea: No Vomiting: No Anesthesia Complication: Yes Anesthesia Complication Comment:: in situ IV infiltrated, 2nd IV placed by anesthesia Fluid Hydration Crystalloid volume administer (ml): 60 Total IV fluid infused: 60 Progress Note Anesthesia document: Postop Eval 1 completed: Yes 08/17/24 1039 <Electronically signed by Jean-Claude Madsen > Date _ Jean-Claude Gutierrezignnella Signature: Date CC: ~ Signed [facility] Work Phone: Evaluation noteNo assessment information available [facility] Work Phone: History and physical note Author Lexx Mascorro [facility] Note Date/Time August 17, 2024 9:4 7am [facility] Medical Records Department [address] [place] [id number] History & Physical Exam 08/17/24 0946 MR#: [id number] Acct: [id number] Name: PAUL RAMÍREZ Rep #:[id number] : 1960 64 From: Lexx elder MD PCP: Dr. Heriberto Perry, DO Status:[facility] Location: [place] [address] History and Physical Date of Admission: 08/17/24 Intake Vital Signs 07/11/2513:55 Height 5 ft 10 in Weight: 175 lb 4 oz BMI 25.1 BP 168/87 H Blood Pressure Location Rt brachial Position Sitting Respiration 18 Pulse 69 Pulse Source Monitor Temp 97.8 F Temp Source Temporal Pulse Oximetry (%) 99 Oxygen Delivery Method room air Intake Visit Reasons: BLOOD IN STOOL Chief Complaint: blood in stool Is patient in pain?: No Allergies No Known Allergies Allergy (Unverified 07/11/24 14:57) Medications ?Medication ?Instructions ?Recorded ?Confirmed ?Type NK 07/11/24 07/11/24 History PFSH Medical History (Updated 07/11/24 @ 14:55 by Lizette Rey LPN) Hypertension Hemorrhoids Positive fecal occult blood test Surgical History (Updated 07/11/24 @ 14:55 by Lizette Rey LPN) Hx of tonsillectomy Social History (Updated 07/11/24 @ 14:55 by Lizette Rey LPN) Smoking Status: Never smoker alcohol intake: never substance use type: does not use HPI HPI HPI: Patient is a 64-year-old male here for positive fecal occult blood test. The patient has never had a colonoscopy in the past. He has never had an EGD. He denies abdominal pain or blood in the stool. He denies black and tarry stools as well. ROS General General: No weight change, appetite, fatigue, colon cancer, breast cancer or weakness HEENT HEENT: No difficulty swallowing, eye injury, eye surgery, swollen glands or hoarseness Endo Endocrine: No thyroid disease, diabetes mellitus, thyroid cancer, Hair loss, heat intolerance or cold intolerance Skin Skin: No rash or changing moles Musc Musculoskeletal: No back problems, arthritis, rheumatoid arthritis, gout or joint pain Cardio Cardiovascular: Yes high blood pressure; No murmur, pacemaker, heart disease, atrial fibrillation, heart attack, heart stent, palpitations, shortness of breat with exertion or chest pain Psych Psychiatric: No depression, anxiety or hearing voices Resp Respiratory: No shortness of breath, No sleep apnea, No cough, No COPD, No asthma, No emphysema and No wheezing Gastro Gastrointestinal: No abdominal pain, No nausea or vomiting, No diarrhea, No constipation, Yes blood in stool, No acid reflux, Yes hemorrhoids, No ulcers, Nogallbladder problem and No black,tarry stools [place] Hematologic: No blood thinners, No blood disorders, No bleeding, No anemia and No blood clots Neuro Neurologic: No numbness, No tingling and No weakness Exam Const General: cooperative Orientation: alert and oriented x3 HENMT Head: normal to inspection Neck Neck: normal visual inspection and full ROM Chest Chest palpation & inspection: normal inspection of the chest Resp Effort & Inspection: normal respiratory effort Auscultation: clear to auscultation bilaterally Cardio Rate: regular rate Rhythm: regular rhythm GI Inspection: non-distended Palpation: soft and nontender Skin General: no rashes or lesions noted Neuro General: patient alert and patient oriented x3 Extrem General: full ROM Psych Appearance: grossly normal Mental Status: mental status grossly normal Assessment and Plan Assessment and Plan (1) Positive fecal occult blood test: Status: Acute Plan: Given the positive fecal occult blood test I would recommend the patient have anEGD and colonoscopy. He has never had a screening colonoscopy in the past. I explained endoscopy in detail to the patient. I explained the risks including but not limited to stroke or heart attack with anesthesia, perforation of the GItract, bleeding, infection. I explained that any of these could necessitate further emergency surgery. The patient understands and all questions were answered sufficiently. The patient wishes to proceed with procedure. Lexx Mascorro MD Pager: [facility] [address] [place] [address], [address] [place] [address] Office: I have examined the patient and the H&P has been reviewed. There are no clinicalchanges since date of exam. 08/17/24 0947 <Electronically signed by Lexx Mascorro MD> Cosigner Signature (if applicable): CC: Dr. Lexx Mascorro MD; Dr. Heriberto Perry, DO~ Signed [facility] Work Phone: Reason for referral (narrative)No reason for referral information availableW[facility] Work Phone: Summary Purpose Family History No Family History Records FoundNo Family History Records Found Advance Directives No Advanced Directives Records Found Advance Directive Response Recorded Date/ Time Living Will Yes August 16, 2024 11:49am Power of Yarrow Gatherer Yes August 16 11:49am Name of Medical Power of Yarrow Gatherer August 16, 2024 11:49am Chief Complaint and Reason for Visit Chief Complaint Admit Date BLOOD IN STOOL July 11, 2024 2 :43pm Reason for Visit Admit Date Positive fecal occult blood test Februar 2024 2:43pm Additional Source Comments (unrecognized sect ion and content) No Status Records FoundNo Status Records Found INFORMATION SOURCE (unrecogn ized section and content) DATE CREATED AUTHOR 06/09/2022 [facility] DATE CREATED AUTHOR AUTHOR'S ORGANIZ ATION 03/12/2025 [facility] Care Teams (unrecognized sec tion and content) Team Status: Active Member Role Status Dates Dr. Heriberto Perry DO Primary Care Provider Active Team Status: Inactive Member Role Status Dates Dr. Heriberto Perry DO Primary Care Prov ider, Attending Provider, Referring Provider Active Team Status: Inactive Member Role Status Dates Dr. Heriberto Perry DO Primary Care Provider, Attendin g Provider Active Team Status: Inactive Member Role Status Dates Dr. Heriberto Perry DO Primary Care Provider Active Start: June 07, 2024 End: June 07, 2024 Dr. Heriberto Perry DO Attending Provider Active Start: June 07, 2024 End: June 07, 2024 Dr. Hreiberto Perry DO Referring Provider Active Start: June 07, 2024 End: June 07, 2024 Team Status: Inactive Member Role Status Dates Dr. Heriberto Perry DO Primary Care Provider Active Start: July 11, 2024 End: July 11, 2024 Dr. Heriberto Perry DO Referring Provider Active Start: July 11, 2024 End: July 11, 2024 Dr. Lexx Mascorro MD Attending Provider Active Start: July 11, 2024 End: July 11, 2024 Team Status: Inactive Member Role Status Dates Dr. Heriberto Perry DO Primary Care Provider Active Start: August 17, 2024 End: August 17, 2024 Dr. Heriberto Perry DO Referring Provider Active Start: August 17, 2024 End: August 17, 2024 Dr. Lexx Mascorro MD Attending Provider Active Start: August 17, 2024 End: August 17, 2024 Team Status: Active Member Role Status Dates Dr. Heriberto Perry DO Primary Care Provider Active Start: August 17, 2024 Dr. Heriberto Perry DO Referring Provider Active Start: August 17, 2024 Dr. Lexx Mascorro MD Attending Provider Active Start: August 17, 2024 Dr. Lexx Mascorro MD Other Provider Active Start: August 17, 2024 Goals (unrecognized section and content) Goals may be documented in a n alternate sectionGoals may be documented in an alternate section FOR RECORDS PERTAINING TO PATIENTS WHO ARE [...] BE BASED ON THE PRIMARY CLINICAL RECORDS. [facility]. provides no warranty or guarantee of the accuracy or completeness of information in this document.
--- NOTE | 2025-04-26 05:43 | EDS_ITS ---
HPI History of Present Illness Chief Complaint: Syncope Narrative Narrative: Patient was seen and examined after presenting to ED for syncopal episode patient was actually here visiting his who is about to go to surgery when all of a sudden she started shouting for help in her own exam room and patient was in the corner she states that he was awake and talking to her and then all of a sudden just slumped over. Patient ended up coming to no history of seizures no history of any cardiac abnormalities just has a history of hypertension for which he is on lisinopril and hydrochlorothiazide. [facility] Medical History Wears contact lenses Non-smoker Leg cramps Hypertension Hemorrhoids Positive fecal occult blood test Home Medications ?Medication ?Instructions ?Recorded ?Last Taken ?Type lisinopril 20 1 tab PO DAILY HYPERTESION 0 07/12/24 08/16/24 History mg-hydrochlorothiazide 12.5 mg tablet Allergy/AdvReac Type Severity Reaction Status Date / Time No Known Allergies Allergy Verified 04/26/25 05:26 Surgical History History of ankle surgery Hx of tonsillectomy Social History Smoking Status: Never smoker alcohol intake: never substance use type: does not use ROS ROS ED ROS Narrative Pertinent Positives: Syncope Pertinent Negatives: Chest pain pressure shortness of breath history of seizures history of diabetes history of DVT or PE The remainder of review of systems negative unless otherwise stated in the HPI above. Systems reviewed including constitutional, psychiatric, cardiovascular, respiratory, integument, HENT, gastrointestinal. EXAM Physical Exam Narrative Exam Narrative: Patient is afebrile he is pale in his appearance he is diaphoretic normal heart and lung sounds intact and equal MSPs in his extremities no lower extremity edema or calf tenderness abdomen is soft nontender nondistended no palpable pulsatile mass. He is not in respiratory distress. He is afebrile hemodynamically stable Const Vital Signs: 04/26/25 05:23 04/26/25 05:29 04/26/25 06:23 Temperature 97.6 F L Temperature Source Oral Pulse Rate 57 L 54 L Respiratory Rate 21 H 18 Respiratory Effort Normal Blood Pressure 155/81 H 150/88 H Blood Pressure Mean 105 108 Pulse Ox 98 97 Oxygen Delivery Method Room Air 04/26/25 07:00 Temperature Temperature Source Pulse Rate 67 Respiratory Rate 16 Respiratory Effort Blood Pressure 161/92 H Blood Pressure Mean 115 Pulse Ox 97 Oxygen Delivery Method MDM MDM MDM Narrative Medical decision making narrative: Nursing notes, triage notes, available previous documentation, and vital signs were reviewed. Any discrepancies noted were addressed. Differential Diagnoses: Could be vasovagal he states that he only had a glass of milk this morning prior to coming in could be hypoglycemia could be cardiac in nature either ACS or an underlying arrhythmia which she reportedly has no history of lower suspicion for PE or aortic etiology Interventions: Fluids Given: 1 L normal saline Labs Reviewed: No leukocytosis leukopenia anemia. D-dimer is unremarkable no electrolyte abnormality or renal insufficiency troponin was 14 with a BNP of 105 Imaging Reviewed: Personally reviewed and interpreted by me: Chest x-ray no pneumonia edema widened mediastinum or pneumothoraces EKG: Sinus rhythm with 1 PVC at a rate of 63. WA intervals 192 with a QTc of [address] segment elevation no evidence of WPW or Brugada syndrome. No dagger Q waves. EKG interpretation is noted and agreed to in the EMR. The interpretation of this patient's EKG contributed directly to the care and management of this patient. Previous Documentation Reviewed: None available or applicable at this time. ED Course: Patient presenting with a syncopal episode while he was here visiting his who is about to go for surgery he reportedly is otherwise healthy at baseline is only on lisinopril and hydrochlorothiazide for history of hypertension not on anticoagulation is not diabetic only had a glass of milk this morning prior to arrival patient was awake and talking after syncopized and he had no prodromal symptoms but was visibly pale and diaphoretic after the fact which can be expected with various forms of syncope. Patient did have a moment on the monitor where he had a P wave but no conducted QRS he did not have any sort of prolongation of WA interval call like a type II or even a type III AV block as there was no discordance between P waves and QRS complexes but I did go ahead and speak with the hospitalist Dr. Escalera who is agreeable to admission This note was made utilizing voice recognition software. All attempts were made to correct spelling or other errors prior to note completion. However, due to e fast-paced nature of emergency medicine, some errors may still be present. Lab Data Labs: Laboratory Results - last 24 hr 04/26/25 04/26/25 05:26 05:31 WBC 7.8 RBC 5.10 Hgb 14.7 Hct 42.4 MCV 83.1 MCH 28.8 MCHC 34.7 RDW Std Deviation 36.1 RDW Coeff of Atif 11.9 Plt Count 256 MPV 10.1 Immature Gran % (Auto) 0.300 Neut % (Auto) 51.1 Lymph % (Auto) 36.1 [place] % (Auto) 8.7 Eos % (Auto) 3.2 Baso % (Auto) 0.6 Absolute Neuts (auto) 4.0 Absolute Lymphs (auto) 2.81 Nucleated RBC % 0 D-Dimer Quant (PE/DVT) 0.34 Sodium 138 Potassium 3.3 Chloride 102 Carbon Dioxide 24.9 Anion Gap 11 BUN 18 Creatinine 1.09 Estim Creat Clear Calc 70.69 Est GFR (MDRD) Non-Af 76 BUN/Creatinine Ratio 16.6 Glucose 145 H Calcium 9.1 Troponin T High Sens 14 NT pro BNP II 105 POC Glucose 135 H Radiography Diagnostic Testing: Clinical Impression(s) from Imaging Studies Chest X-Ray 04/26/25 05:55 IMPRESSION: No acute pulmonary process Reading Location: [facility] Discharge Plan Triage Chief Complaint: Syncope ED Provider: Crystal Hook Dx/Rx/DC Orders Clinical Impression: Syncope, AV block, History of hypertension Prescriptions: No Action lisinopril-hydrochlorothiazide 20-12.5 mg tablet 1 tab PO DAILY Primary Care Provider: Heriberto Perry Referrals: Heriberto Perry DO [Primary Care Provider, Family Practice] Print Language: Bots[place]an
--- NOTE | 2025-04-26 05:55 | RAD_ITS ---
PROCEDURE: CHEST 1 VIEW (PORTABLE) 04/26/2025 REASON FOR EXAM: Atypical chest pain, syncopal episode TECHNIQUE: Frontal view of the chest. COMPARISON: None FINDINGS: Hardware: EKG leads overlie the chest Heart: The heart size is normal. Lungs: The lungs are clear. Bones: Degenerative changes are identified within the thoracic spine. RAD/Chest 1 View (Portable) IMPRESSION: No acute pulmonary process Reading Location: [id number]
[2025-04-26 05:56] LABS: D-Dimer Quantitative (DVT/PE) 0.34 FEU/ug/m (0.27-0.49)
[2025-04-26 06:04] LABS: Anion Gap 11 (5-15); BUN 18 mg/dL (4-19); BUN/Creat Ratio 16.6 RATIO (10-20); Calcium,Total 9.1 mg/dL (7.6-11.0); Carbon Dioxide 24.9 mmol/L (21.0-32.0); Chloride 102 mmol/L (98-108); Estimated Creatinine Clearance 70.69 ml/min (50-250); Glucose 145 mg/dL (70-99); Potassium 3.3 mmol/L (3.3-5.1); Pro- Brain NATRIURETIC PEPTIDE 105 pg/mL (<=900); Troponin T High Sensitivity 14 ng/L (<=22)
--- NOTE | 2025-04-26 07:32 | HP.PCM.HOS_ITS ---
HPI - General General Date of Service: 04/26/25 Chief Complaint: Syncope HPI Narrative SERINA HALL, is a 65 M who presents with syncope. Patient presented to the hospital with his who underwent emergent surgery. Afterwards, he was sitting in a chair just felt off and then had passed out for short period time. He came to without incident. He was then sent to the emergency room and he underwent a workup that was fairly unremarkable with exception of potassium of 3.3.'s EKG was unremarkable no bradycardic but on telemetry it was noted that he had had several dropped QRSs. With the syncope and these telemetry findings, the hospital service was contacted for admission. Patient had an episode of similar about 4 5 years ago. He has never had any episodes since then. He states that he has been feeling fine as of late. [ ] [facility] Medical History Wears contact lenses Non-smoker Leg cramps Hypertension Hemorrhoids Positive fecal occult blood test Home Medications ?Medication ?Instructions ?Recorded ?Last Taken ?Type lisinopril 20 1 tab PO DAILY HYPERTESION 0 07/12/24 08/16/24 History mg-hydrochlorothiazide 12.5 mg tablet Allergy/AdvReac Type Severity Reaction Status Date / Time No Known Allergies Allergy Verified 04/26/25 05:26 Surgical History History of ankle surgery Hx of tonsillectomy Social History Smoking Status: Never smoker alcohol intake: never substance use type: does not use ROS ROS Narrative All review of systems were negative except as mentioned above in the history of present illness and the other review of systems. Vital Signs Vital Signs Vital Signs: 04/26/25 05:23 04/26/25 05:29 04/26/25 06:23 Temperature 36.4 C L Temperature Source Oral Pulse Rate 57 L 54 L Respiratory Rate 21 H 18 Respiratory Effort Normal Blood Pressure 155/81 H 150/88 H Blood Pressure Mean 105 108 Pulse Ox 98 97 Oxygen Delivery Method Room Air 04/26/25 07:00 Temperature Temperature Source Pulse Rate 67 Respiratory Rate 16 Respiratory Effort Blood Pressure 161/92 H Blood Pressure Mean 115 Pulse Ox 97 Oxygen Delivery Method Weight Weight: 80.5 kg Body Mass Index (BMI) 25.4 Physical Exam Const alert and no apparent distress HEENT normocephalic, head/scalp atraumatic, hearing grossly normal bilaterally and moist oral mucous membranes Resp normal respiratory effort, no retractions, no use of accessory muscles and clear to auscultation bilaterally Cardio regular rate, regular rhythm, S1 normal heart sound and S2 normal heart sound GI normal to inspection, nondistended, normoactive bowel sounds, soft to palpation, non-tender and non-distended Extremity normal to inspection and full ROM Neuro Sensorium / Orientation: awake and alert Psych affect normal Results Lab / Micro Data Attestation: I reviewed the patient's lab results. 04/26/25 05:31 04/26/25 05:31 Labs: Laboratory Results - last 24 hr 04/26/25 05:26: POC Glucose 135 H 04/26/25 05:31: WBC 7.8, RBC 5.10, Hgb 14.7, Hct 42.4, MCV 83.1, MCH 28.8, MCHC 34.7, RDW Std Deviation 36.1, RDW Coeff of Atif 11.9, Plt Count 256, MPV 10.1, Immature Gran % (Auto) 0.300, Neut % (Auto) 51.1, Lymph % (Auto) 36.1, [place] % (Auto) 8.7, Eos % (Auto) 3.2, Baso % (Auto) 0.6, Absolute Neuts (auto) 4.0, Absolute Lymphs (auto) 2.81, Nucleated RBC % 0, D-Dimer Quant (PE/DVT) 0.34, Sodium 138, Potassium 3.3, Chloride 102, Carbon Dioxide 24.9, Anion Gap 11, BUN 18, Creatinine 1.09, Estim Creat Clear Calc 70.69, Est GFR (MDRD) Non-Af 76, BUN/Creatinine Ratio 16.6, Glucose 145 H, Calcium 9.1, Troponin T High Sens 14, NT pro BNP II 105 EKG Initial EKG: Attestation: I personally reviewed and interpreted this EKG as follows: Prior EKG tracings: available for review EKG Rhythm Intrepretation: Sinus Bradycardia Imaging Radiology Impression Chest X-Ray 04/26/25 05:55 IMPRESSION: No acute pulmonary process Reading Location: [id number] Assessment & Plan Assessment/Plan (1) Syncope: PLAN: Patient has been feeling fine as of late but was under duress with his being ill requiring emergent surgery last night. Though it was noted that patient has second-degree Mobitz 2 heart block. From what I can see it just seem to be 3 instances thus far. It is unclear what actually transpired when he actually passed out though concerning that this may have been the cause. His potassium is 3.3 so we will correct that as well as check a magnesium. Patient only takes lisinopril/HCTZ so I do not feel that is the culprit of his heart block. I will check an echocardiogram and consult cardiology. PLAN: Plan Hypertension: Continue with his lisinopril/HCTZ VTE prophylaxis: Low risk given observation status. CODE STATUS: Addressed with the patient. Patient wishes to be full code Charges/Coding Visit Charges Inpatient E&M: 87672 Init Hosp L2
--- NOTE | 2025-04-26 07:55 | ECHOD_ITS ---
Reason For Study Reason For Study: SYNCOPE/NEAR SYNCOPE Procedure This was a 2D Doppler, Color Flow transthoracic echocardiogram. Exam performed portable in patient room. Left Ventricle Normal size and thickness. The estimated ejection fraction is 55 %. Normal diastology for age. Right Ventricle Normal right ventricle. Normal systolic function. Atria The left and right atria are normal. Bubble contrast study is negative for PFO/ASD. Mitral Valve The mitral valve is structurally normal. No prolapse or stenosis seen. Tricuspid Valve Mild (1+) tricuspid valve insufficiency. Right ventricular systolic pressure estimated to be 24 mmHg. Aortic Valve The aortic valve is not well visualized. Pulmonic Valve Trivial pulmonic valve insufficiency. Great Vessels Mildly dilated ascending aorta. Pericardium/Pleural No pericardial effusion. MMode/2D Measurements & Calculations LVIDd: 5.0 cm IVSd: 0.83 cm asc Aorta Diam: 3.9 cm LVIDs: 3.4 cm LVPWd: 0.98 cm RVDd: 3.2 cm FS: 33.1 % LAV(MOD-bp): 58.8 ml LVAd ap4: 30.2 cm2 LVAd ap2: 29.7 cm2 LAV(MOD-bp) Indexed: 30.2 ml/m2 LVLd ap4: 8.1 cm LVLd ap2: 8.0 cm LAV(MOD-sp2): 51.0 ml EDV(MOD-sp4): 95.1 ml EDV(MOD-sp2): 92.7 ml LAV(MOD-sp4): 56.1 ml EDV(sp4-el): 95.8 ml EDV(sp2-el): 93.3 ml LVAs ap4: 15.5 cm2 LVAs ap2: 16.1 cm2 LVLs ap4: 6.3 cm LVLs ap2: 6.5 cm ESV(MOD-sp4): 32.3 ml ESV(MOD-sp2): 34.1 ml ESV(sp4-el): 32.3 ml ESV(sp2-el): 33.9 ml EF(MOD-sp4): 66.1 % EF(MOD-sp2): 63.2 % EF(sp4-el): 66.3 % SV(MOD-sp4): 62.8 ml SV(MOD-sp2): 58.6 ml SV(sp4-el): 63.5 ml SI(MOD-sp4): 32.3 ml/m2 SI(MOD-sp2): 30.2 ml/m2 LA A4 area: 19.4 cm2 LA dimension(2D): 3.9 cm RA A4 area: 14.2 cm2 TAPSE: 2.8 cm Time Measurements MV dec time: 0.23 sec Doppler Measurements & Calculations MV E max jasiel: 62.2 cm/sec Lat Peak E' Jasiel: 9.2 cm/sec Med Peak E' Jasiel: 13.1 cm/sec MV A max jasiel: 77.4 cm/sec E/E' lat: 6.7 E/E' med: 4.7 MV E/A: 0.80 Ao V2 max: 129.9 cm/sec LV V1 max: 111.1 cm/sec MV dec slope: 268.3 cm/sec2 Ao max P.7 mmHg LV V1 max P.9 mmHg Ao V2 mean: 85.7 cm/sec LV V1 mean P.8 mmHg Ao mean P.5 mmHg LV V1 mean: 78.4 cm/sec Ao V2 VTI: 28.8 cm LV V1 VTI: 23.5 cm AV (velocity ratio): 0.82 PA V2 max: 99.6 cm/sec TR max jasiel: 241.6 cm/sec TR max P.3 mmHg ECHO/Echo Complete Interpretation Summary Normal LV size and wall thickness. The estimated ejection fraction is 55 %. Normal diastology for age. Right ventricular systolic pressure estimated to be 24 mmHg. Trace to mild tricuspid agitation otherwise no significant valvular pathology Mildly dilated ascending aorta 3.9 cm Ordering Physician: Deon Dominguez Referring Physician: Heriberto Perry Performed By: Mihai Hawley RDCS
[2025-04-26 08:01] LABS: Troponin T High Sens 2 HR 10 ng/L (<=22)
--- OUTSIDE RECORDS SUMMARY | 2025-04-26 08:12 | XMS RPT_ITS | CCD ---
Author Organization [facility] Care Team Providers Care Safety Teacher Name Role Phone Dr. Heriberto Perry DO Primary Care Provider Dr. Heriberto Perry DO Attending Provider Dr. Heriberto Perry DO Referring Provider Ludwin RAMOS, Dr. Hallman Attending Provider Ludwin RAMOS, Dr. Hallman Other Provider Heriberto Perry Primary Care Unavailable Lexx Mascorro [...] Range Facility Colonoscopy Reporton 025 Colonoscopy Report [facility] Medical Records Department [address] [place] [address] Colonoscopy Report MR#: [id number] Acct: [id number] Name: PAUL RAMÍREZ Rep #: [id number] : 1960 64 From: Lexx Mascorro MD PCP: Dr. Heriberto Perry, DO Status:REG [facility] Patient Name: Paul Ramírez Procedure Date: 08/17/2024 [...] screening purposes. Procedure Code(s): --- Professional --- 71881, Colonoscopy, flexible; diagnostic, including collection of specimen(s) by brushing or washing, when performed (separate procedure) Diagnosis Code(s): --- Professional --- R19.5, Other fecal abnormalities CPT copyright 2021 [employer]. All rights reserved. The codes documented in this report are preliminary and upon bicycle racer review may be revised to meet current compliance requirements. eLxx Mascorro MD 08/17/2024 10:32:03 AM This report has been signed electronically. Number of Addenda: 0 Note Initiated On: 08/17/2024 10:17 AM 08/17/24 1032 Date Lexx Mascorro MD Cosigner Signature: Date (if indicated) CC: Dr. Lexx Mascorro MD; Dr. Heriberto Perry DO Date Dictated: 08/17/24 1017 Date Transcribed: Nurse Reviewer: AC Signed Normal [facility] EGD Reporton 08-17-2024 EGD Report [facility] Medical Records Department [address] [place] [address] EGD Report MR#: [id number] Acct: [id number] Name: PAUL RAMÍREZ Rep #: [id number] : 1960 64 From: Lexx Mascorro MD PCP: Dr. Heriberto Perry, DO Status:REG [facility] Patient Name: Paul Ramírez Procedure Date: 08/17/2024 [...] present medications. Procedure Code(s): --- Professional --- 99719, Esophagogastroduodenoscopy , flexible, transoral; diagnostic, including collection of specimen(s) by brushing or washing, when performed (separate procedure) Diagnosis Code(s): --- Professional --- R19.5, Other fecal abnormalities CPT copyright 2021 [employer]. All rights reserved. The codes documented in this report are preliminary and upon bicycle racer review may be revised to meet current compliance requirements. Lexx Mascorro MD 08/17/2024 10:30:52 AM This report has been signed electronically. Number of Addenda: 0 Note Initiated On: 08/17/2024 9:48 AM 08/17/24 1030 Date Lexx Hathaway Signature: Date (if indicated) CC: Dr. Lexx Mascorro MD; Dr. Heriberto Perry DO Date Dictated: 08/17/2448 Date Transcribed: Nurse Reviewer: FRANCIA Deng [facility] MR/POSTOP.[facility] 08-17-2024 MR/POSTOP.[facility] Medical Records Department [address] [place] [address] Anesthesia Postop Eval I 08/17/24 1038 MR#: [id number] Acct: [id number] Name: PAUL RAMÍREZ Rep #: [id number] : 1960 64 From: Jean-Claude Madsen PCP: Dr. Heriberto Perry DO Status:REG SDC Y Race: C Location: [place] [address] Anesthesia: Postop Eval I Current Vital Signs [...] Jean-Claude Hathaway Signature: Date CC: Signed Normal [facility] MR/[id number] 08-17-2024 MR/POSTOPAN2 [facility] Medical Records Department [address] [place] [address] Anesthesia Postop Eval II 08/17/24 1449 MR#: [id number] Acct: [id number] Name: PAUL RAMÍREZ Rep #: [id number] : 1960 64 From: Lit Acosta MD PCP: Dr. Heriberto Perry, DO Status:DEP [facility] Y Race: C Location: [place] Anesthesia Postop [...] No 08/17/24 1449 Date [facility] Acosta [facility] Signature: Date CC: Signed Normal [facility] Surgery Visit Reporton 07-11 Surgery Visit Report [facility] [address] [place] [address] OFFICE VISIT Date of Service: 07/11/24 MR#: [id number] Acct: [id number] Name: PAUL RAMÍREZ Rep #: [id number] : 1960 Provider: Dr. Lexx ventura MD Age/Sex: 64/M Location: [facility] Status: Signed Intake Vital Signs 07/11/24 [...] proceed with procedure. Lexx Mascorro MD Pager: [facility] [address] [place] [address], [address] [place] [address] Office: Orders: Orders Colonoscopy Today EGD Today Coding Level of Care Code Off vis,new,level 3 Diagnoses Positive fecal occult blood test R19.5 07/11/24 1503 Date Lexx Hathaway Signature: Date (if applicable) CC: Normal [facility] Absolute neutrophil countOrd ered By: Heriberto Perry on 06-07-2024 Neutrophils (Bld) [#/Vol] 3.3 10*3/uL 2.0-7.7 [facility] Albumin to globulin ratioOrd ered By: Heriberto Perry on 06-07-2024 Albumin/Globulin [Mass ratio] 1.0 {ratio} 0.9-2.4 [facility] Basophil percentageOrdered B y: Heriberto Perry on 06-07-2024 Basophils/100 WBC (Bld) 1.0 % 0-1 [facility] Bilirubin, totalOrdered By: Heriberto Perry on 06-07-2024 Bilirubin [Mass/Vol] 1.10 mg/dL High 0.20-1.00 [facility] Comment on above: For patients on eltr ombopag therapy, use of Dimension Henderson TBIL is not recommended. Blood urea nitrogen (BUN)/cr eatinine ratioOrdered By: Heriberto Perry on 06-07-2024 Urea nitrogen/Creatinine [Mass ratio] 19.6 mg/mg 10-20 [facility] CBC W/Diff, Automatedon Absolute Lymph 1.82 X10 3/uL Normal 0.83-4.51 [facility] Comment on above: Performed By: #### L 100.0100, L500.4100, L500.4050, L501.9910 #### [facility] [address] [place], [address] Absolute Neut 3.3 X10 3/uL Normal 2.0-7.7 [facility] Comment on above: Performed By: #### L 100.0100, L500.4100, L500.4050, L501.9910 #### [facility] [address] [place], [address] Basophils/100 WBC (Bld) 1.0 % Normal 0-1 [facility] Comment on above: Performed By: #### L 100.0100, L500.4100, L500.4050, L501.9910 #### [facility] [address] [place], [address] Eosinophils/100 WBC (Bld) 4.9 % Normal 0-5 [facility] Comment on above: Performed By: #### L 100.0100, L500.4100, L500.4050, L501.9910 #### [facility] [address] [place], [address] Erythrocyte distribution width (RBC) [Ratio] 12.2 % Normal 11.6-14.6 [facility] Comment on above: Performed By: #### L 100.0100, L500.4100, L500.4050, L501.9910 #### [facility] [address] [place], [address] Hematocrit (Bld) [Volume fraction] 42.4 % Normal 40-54 [facility] Comment on above: Performed By: #### L 100.0100, L500.4100, L500.4050, L501.9910 #### [facility] [address] [place], [address] Hemoglobin (Bld) [Mass/Vol] 14.4 g/dL Normal 13.0-16.5 [facility] Comment on above: Performed By: #### L 100.0100, L500.4100, L500.4050, L501.9910 #### [facility] [address] [place], [address] IG% 0.000 Normal 0.0-0.9 [facility] Comment on above: Result Comment: IG% - Immature Granulocytes (promyelocytes, myelocytes and metamyelocytes) > 1% indicates that a LEFT SHIFT is Present. Performed By: #### L 100.0100, L500.4100, L500.4050, L501.9910 #### [facility] [address] [place], [address] Lymphocytes/100 WBC (Bld) 30.5 % Normal 19-41 [facility] Comment on above: Performed By: #### L 100.0100, L500.4100, L500.4050, L501.9910 #### [facility] [address] [place], [address] MCH (RBC) [Entitic mass] 29.0 pg Normal 27.0-32.0 [facility] Comment on above: Performed By: #### L 100.0100, L500.4100, L500.4050, L501.9910 #### [facility] [address] [place], [address] MCHC (RBC) [Mass/Vol] 34.0 g/dL Normal 32-36 [facility] Comment on above: Performed By: #### L 100.0100, L500.4100, L500.4050, L501.9910 #### [facility] [address] [place], [address] MCV (RBC) [Entitic vol] 85.3 fL Normal 80-94 [facility] Comment on above: Performed By: #### L 100.0100, L500.4100, L500.4050, L501.9910 #### [facility] [address] [place], [address] Monocytes/100 WBC (Bld) 8.9 % Normal 0-10 [facility] Comment on above: Performed By: #### L 100.0100, L500.4100, L500.4050, L501.9910 #### [facility] [address] [place], [address] Neutrophils/100 WBC (Bld) 54.7 % Normal 47-70 [facility] Comment on above: Performed By: #### L 100.0100, L500.4100, L500.4050, L501.9910 #### [facility] [address] [place], [address] Nucleated RBC (Bld) [#/Vol] 0 10*3/uL Normal 0-5 [facility] Comment on above: Performed By: #### L 100.0100, L500.4100, L500.4050, L501.9910 #### [facility] [address] [place], [address] Platelet mean volume (Bld) [Entitic vol] 9.8 fL Normal 6.2-12.0 [facility] Comment on above: Performed By: #### L 100.0100, L500.4100, L500.4050, L501.9910 #### [facility] [address] [place], [address] Platelets (Bld) [#/Vol] 218 10*3/uL Normal 150-450 [facility] Comment on above: Performed By: #### L 100.0100, L500.4100, L500.4050, L501.9910 #### [facility] [address] [place], [address] RBC (Bld) [#/Vol] 4.97 10*6/uL Normal 4.6-6.2 [facility] Comment on above: Performed By: #### L 100.0100, L500.4100, L500.4050, L501.9910 #### [facility] [address] [place], [address] RDW SD 37.1 fl Normal 35.1-43.9 [facility] Comment on above: Performed By: #### L 100.0100, L500.4100, L500.4050, L501.9910 #### [facility] [address] [place], [address] WBC (Bld) [#/Vol] 6.0 10*3/uL Normal 4.4-11.0 [facility] Comment on above: Performed By: #### L 100.0100, L500.4100, L500.4050, L501.9910 #### [facility] [address] [place], [address] Carbon dioxide measurementOr dered By: Heriberto Perry on 06-07-2024 CO2 [Moles/Vol] 30.0 mmol/L 21.0-32.0 [facility] Chloride measurementOrdered By: Heriberto Perry on 06-07-2024 Chloride [Moles/Vol] 106 mmol/L 98-107 [facility] Comprehensive Metabolic Prof ilon 06-07-2024 Albumin [Mass/Vol] 3.6 g/dL Normal 3.2-5.0 [facility] Comment on above: Performed By: #### L 100.0100, L500.4100, L500.4050, L501.9910 #### [facility] [address] [place], [address] Albumin/Globulin [Mass ratio] 1.0 {ratio} Normal 0.9-2.4 [facility] Comment on above: Performed By: #### L 100.0100, L500.4100, L500.4050, L501.9910 #### [facility] [address] [place], [address] ALK P 71 U/L Normal 45-117 [facility] Comment on above: Performed By: #### L 100.0100, L500.4100, L500.4050, L501.9910 #### [facility] [address] [place], [address] ALT [Catalytic activity/Vol] 27 U/L Normal 16-61 [facility] Comment on above: Performed By: #### L 100.0100, L500.4100, L500.4050, L501.9910 #### [facility] [address] [place], [address] AST [Catalytic activity/Vol] 21 U/L Normal 15-37 [facility] Comment on above: Performed By: #### L 100.0100, L500.4100, L500.4050, L501.9910 #### [facility] [address] [place], [address] Bilirubin [Mass/Vol] 1.10 mg/dL High 0.20-1.00 [facility] Comment on above: Result Comment: For patients on eltrombopag therapy, use of Dimension Henderson TBIL is not recommended. Performed By: #### L 100.0100, L500.4100, L500.4050, L501.9910 #### [facility] [address] [place], [address] BUN/CRE 19.6 RATIO Normal 10-20 [facility] Comment on above: Performed By: #### L 100.0100, L500.4100, L500.4050, L501.9910 #### [facility] [address] [place], [address] CA,Total 9.1 mg/dL Normal 8.5-10.1 [facility] Comment on above: Performed By: #### L 100.0100, L500.4100, L500.4050, L501.9910 #### [facility] [address] [place], [address] Chloride [Moles/Vol] 106 mmol/L Normal 98-107 [facility] Comment on above: Performed By: #### L 100.0100, L500.4100, L500.4050, L501.9910 #### [facility] [address] [place], [address] CO2 [Moles/Vol] 30.0 mmol/L Normal 21.0-32.0 [facility] Comment on above: Performed By: #### L 100.0100, L500.4100, L500.4050, L501.9910 #### [facility] [address] [place], [address] Creatinine [Mass/Vol] 1.07 mg/dL Normal 0.70-1.30 [facility] Comment on above: Result Comment: The validity of the calculated GFR GFRAA in patients over 70 years has not been determined. Clinical correlation is essential. Performed By: #### L 100.0100, L500.4100, L500.4050, L501.9910 #### [facility] [address] [place], [address] EST GFR - AA 90 mL/min Normal >60 [facility] Comment on above: Result Comment: Afri can Iranian GFR Calc Performed By: #### L 100.0100, L500.4100, L500.4050, L501.9910 #### [facility] [address] [place], [address] GAP 3 Low 5-15 [facility] Comment on above: Performed By: #### L 100.0100, L500.4100, L500.4050, L501.9910 #### [facility] [address] [place], [address] GFR/1.73 sq M.predicted among non-blacks MDRD (S/P/Bld) [Vol rate/Area] 74 mL/min/{1.73_m2} Normal >60 [facility] Comment on above: Result Comment: Non- GFR Calc Performed By: #### L 100.0100, L500.4100, L500.4050, L501.9910 #### [facility] [address] [place], [address] Globulin (S) [Mass/Vol] 3.5 g/dL Normal 2.2-4.2 [facility] Comment on above: Performed By: #### L 100.0100, L500.4100, L500.4050, L501.9910 #### [facility] [address] [place], [address] Glucose [Mass/Vol] 95 mg/dL Normal 74-106 [facility] Comment on above: Performed By: #### L 100.0100, L500.4100, L500.4050, L501.9910 #### [facility] [address] [place], [address] Potassium [Moles/Vol] 3.8 mmol/L Normal 3.5-5.1 [facility] Comment on above: Performed By: #### L 100.0100, L500.4100, L500.4050, L501.9910 #### [facility] [address] [place], [address] Sodium [Moles/Vol] 139 mmol/L Normal 136-145 [facility] Comment on above: Performed By: #### L 100.0100, L500.4100, L500.4050, L501.9910 #### [facility] [address] [place], [address] T PROT 7.1 g/dL Normal 6.4-8.2 [facility] Comment on above: Performed By: #### L 100.0100, L500.4100, L500.4050, L501.9910 #### [facility] [address] [place], [address] Urea nitrogen [Mass/Vol] 21 mg/dL High 7-18 [facility] Comment on above: Performed By: #### L 100.0100, L500.4100, L500.4050, L501.9910 #### [facility] [address] [place], [address] Eosinophil percentageOrdered By: Heriberto Perry on 06-07-2024 Eosinophils/100 WBC (Bld) 4.9 % 0-5 [facility] Erythrocyte distribution wid th ratioOrdered By: Heriberto Perry on 06-07-2024 Erythrocyte distribution width (RBC) [Ratio] 12.2 % 11.6-14.6 [facility] Erythrocyte distribution wid th standard deviationOrdered By: Heriberto Perry on 06-07-2024 Erythrocyte distribution width (RBC) [Entitic vol] 37.1 fL 35.1-43.9 [facility] Estimated glomerular filtrat ion rate (GFR) AmericanOrdered By: Heriberto Perry on 06-07-2024 Estimated GFR (MDRD) Amer 90 mL/min >60 [facility] Comment on above: GFR Calc Glomerular filtration rate ( GFR) estimationOrdered By: Heriberto Perry on 06-07-2024 Estimated GFR (MDRD) Non-Af Amer 74 mL/min >60 [facility] Comment on above: Non- GFR Calc Glucose measurementOrdered B y: Heriberto Perry on 06-07-2024 Glucose [Mass/Vol] 95 mg/dL 74-106 [facility] Hematocrit Auto (Bld) [Volum e fraction]Ordered By: Heriberto Perry on 06-07-2024 Hematocrit (Bld) [Volume fraction] 42.4 % 40-54 [facility] Hemoglobin measurementOrdere d By: Heriberto Perry on 06-07-2024 Hemoglobin (Bld) [Mass/Vol] 14.4 g/dL 13.0-16.5 [facility] High density lipoprotein (HD L) measurementOrdered By: Heriberto Perry on 06-07-2024 Cholesterol in HDL [Mass/Vol] 80 mg/dL >40 [facility] Comment on above: The drugs N-Acetylcy steine and Metamizole may falsely depress this assay. Reference Range HDL <40 mg/dL Low HDL Cholesterol HDL >or= 60 mg/dL High HDL Cholesterol Immature granulocytes/100 WB C Auto (Bld)Ordered By: Heriberto Perry on 06-07-2024 Immature granulocytes/100 WBC (Bld) 0.000 % 0.0-0.9 [facility] Comment on above: IG% - Immature Granu locytes (promyelocytes, myelocytes and metamyelocytes) > 1% indicates that a LEFT SHIFT is Present. Laboratory - Chemistry and C hemistry - challengeOrdered By: Heriberto Perry on 06-07-2024 AST [Catalytic activity/Vol] 21 U/L 15-37 [facility] Lipid Profileon 06-07-2024 Cholesterol [Mass/Vol] 191 mg/dL Normal [address] [facility] Comment on above: Result Comment: <200 mg/dL Desirable 200-240 mg/dL Borderline >240 mg/dL High Risk Performed By: #### L 100.0100, L500.4100, L500.4050, L501.9910 #### [facility] [address] [place], [address] Cholesterol in HDL [Mass/Vol] 80 mg/dL Normal [facility] Comment on above: Result Comment: The drugs N-Acetylcysteine and Metamizole may falsely depress this assay. Reference Range HDL <40 mg/dL Low HDL Cholesterol HDL >or= 60 mg/dL High HDL Cholesterol Performed By: #### L 100.0100, L500.4100, L500.4050, L501.9910 #### [facility] [address] [place], [address] Cholesterol in LDL [Mass/Vol] 98 mg/dL Normal 0-130 [facility] Comment on above: Performed By: #### L 100.0100, L500.4100, L500.4050, L501.9910 #### [facility] [address] [place], [address] Cholesterol in VLDL [Mass/Vol] 13 mg/dL Normal 5-40 [facility] Comment on above: Performed By: #### L 100.0100, L500.4100, L500.4050, L501.9910 #### [facility] [address] [place], [address] Triglyceride [Mass/Vol] 67 mg/dL Normal [facility] Comment on above: Result Comment: The drugs N-Acetylcysteine and Metamizole may falsely depress this assay. Serum Triglycerides Reference Interval Normal <150 mg/dL Borderline high 150 - 199 mg/dL High 200 - 499 mg/dL Very High > or = 500 mg/dL Performed By: #### L 100.0100, L500.4100, L500.4050, L501.9910 #### [facility] [address] [place], [address] Low density lipoprotein (LDL ) cholesterol measurementOrdered By: Heriberto Perry on 06-07-2024 Cholesterol in LDL [Mass/Vol] 98 mg/dL 0-130 [facility] Lymphocytes Auto (Unsp spec) [#/Vol]Ordered By: Heriberto Perry on 06-07-2024 Lymphocytes (Bld) [#/Vol] 1.82 10*3/uL 0.83-4.51 [facility] Lymphocytes/100 WBC Auto (Un sp spec)Ordered By: Heriberto Perry on 06-07-2024 Lymphocytes/100 WBC (Bld) 30.5 % 19-41 [facility] MCV (mean corpuscular volume ) determinationOrdered By: Heriberto Perry on 06-07-2024 MCV (RBC) [Entitic vol] 85.3 fL 80-94 [facility] Mean corpuscular hemoglobin (MCH) determinationOrdered By: Heriberto Perry on 06-07-2024 MCH (RBC) [Entitic mass] 29.0 pg 27.0-32.0 [facility] Mean corpuscular hemoglobin concentration (MCHC) determinationOrdered By: Heriberto Perry on 06-07-2024 MCHC (RBC) [Mass/Vol] 34.0 g/dL 32-36 [facility] Mean platelet volume determi nationOrdered By: Heriberto Perry on 06-07-2024 Platelet mean volume (Bld) [Entitic vol] 9.8 fL 6.2-12.0 [facility] Monocyte percentageOrdered B y: Heriberto Perry on 06-07-2024 Monocytes/100 WBC (Bld) 8.9 % 0-10 [facility] Neutrophil percentageOrdered By: Heriberto Perry on 06-07-2024 Neutrophils/100 WBC (Bld) 54.7 % 47-70 [facility] Nucleated red blood cell per centageOrdered By: Heriberto Perry on 06-07-2024 Nucleated RBC/100 WBC (Bld) [Ratio] 0 % 0-5 [facility] PSA,Total - Annual Screenon 06-07-2024 PSA,TOT SCREEN 2.49 ng/mL Normal 0.00-4.00 [facility] Comment on above: Result Comment: This test was performed using the TPSA assay method for the [employer] chemistry system. Values obtained with different assay methods cannot be used interchangably. When changing PSA assays in the course of monitoring a patient, additional sequential testing should be carried out to confirm baseline values. Performed By: #### L 100.0100, L500.4100, L500.4050, L501.9910 #### [facility] [address] [place], [address] Platelet countOrdered By: Eren Perry on 06-07-2024 Platelets (Bld) [#/Vol] 218 10*3/uL 150-450 [facility] Potassium measurementOrdered By: Heriberto Perry on 06-07-2024 Potassium [Moles/Vol] 3.8 mmol/L 3.5-5.1 [facility] RBC Auto (Bld) [#/Vol]Ordere d By: Heriberto Perry on 06-07-2024 RBC (Bld) [#/Vol] 4.97 10*6/uL 4.6-6.2 [facility] Screening prostate specific antigen (PSA) measurementOrdered By: Heriberto Perry on 06-07-2024 Prostate Specific Antigen Screen 2.49 ng/mL 0.00-4.00 [facility] Comment on above: This test was perfor med using the TPSA assay method for the[facility] chemistry system. Values obtained with differentassay methods cannot be used interchangably.When changing PSA assays in the course of monitoring apatient, additional sequential testing should be carriedout to confirm baseline values. Serum anion gap measurementO rdered By: Heriberto Perry on 06-07-2024 Anion gap [Moles/Vol] 3 mmol/L Low 5-15 [facility] Serum globulin measurementOr dered By: Heriberto Perry on 06-07-2024 Globulin (S) [Mass/Vol] 3.5 g/dL 2.2-4.2 [facility] Serum or plasma alanine michelle otransferase (ALT) measurementOrdered By: Heriberto Perry on 06-07-2024 ALT [Catalytic activity/Vol] 27 U/L 16-61 [facility] Serum or plasma albumin david urement (mass/volume)Ordered By: Heriberto Perry on 06-07-2024 Albumin [Mass/Vol] 3.6 g/dL 3.2-5.0 [facility] Serum or plasma alkaline robbi sphatase measurementOrdered By: Heriberto Perry on 06-07-2024 ALP [Catalytic activity/Vol] 71 U/L 45-117 [facility] Serum or plasma calcium david urement (mass/volume)Ordered By: Heriberto Perry on 06-07-2024 Calcium [Mass/Vol] 9.1 mg/dL 8.5-10.1 [facility] Serum or plasma cholesterol measurement (mass/volume)Ordered By: Heriberto Perry on 06-07-2024 Cholesterol [Mass/Vol] 191 mg/dL <[address] [facility] Comment on above: <200 mg/dL Desirable 200-240 mg/dL Borderline >240 mg/dL High Risk Serum or plasma creatinine m easurement (mass/volume)Ordered By: Heriberto Perry on 06-07-2024 Creatinine [Mass/Vol] 1.07 mg/dL 0.70-1.30 [facility] Comment on above: The validity of the calculated GFR & GFRAA in patients over 70 years has not been determined. Clinical correlation is essential. Serum or plasma urea nitroge n measurement (mass/volume)Ordered By: Heriberto Perry on 06-07-2024 Urea nitrogen [Mass/Vol] 21 mg/dL High 7-18 [facility] Sodium levelOrdered By: Heriberto Perry on 06-07-2024 Sodium [Moles/Vol] 139 mmol/L 136-145 [facility] Total proteinOrdered By: Sammie Perry on 06-07-2024 Protein [Mass/Vol] 7.1 g/dL 6.4-8.2 [facility] Triglycerides measurementOrd ered By: Heriberto Perry on 06-07-2024 Triglyceride [Mass/Vol] 67 mg/dL <199 [facility] Comment on above: The drugs N-Acetylcy steine and Metamizole may falsely depress this assay.Serum Triglycerides Reference Interval Normal <150 mg/dL Borderline high 150 - 199 mg/dL High 200 - 499 mg/dL Very High > or = 500 mg/dL Very low density lipoprotein (VLDL) cholesterol measurementOrdered By: Heriberto Perry on 06-07-2024 VLDL Cholesterol 13 mg/dL 5-40 [facility] White blood cell (WBC) count Ordered By: Heriberto Perry on 06-07-2024 WBC (Bld) [#/Vol] 6.0 10*3/uL 4.4-11.0 [facility] No Panel InformationOrdered By: Heriberto Perry on 06-14-2023 Prostate Specific Antigen Screen 2.59 ng/mL 0.00-4.00 [facility] Comment on above: This test was perfor med using the TPSA assay method [facility]. Values obtained with differentassay methods cannot be used interchangably.When changing PSA assays in the course of monitoring apatient, additional sequential testing should be carriedout to confirm baseline values. Absolute lymphocyte countOrd ered By: Heriberto Perry on 06-07-2023 Lymphocytes Auto (Unsp spec) [#/Vol] 1.20 10*3/uL 0.83-4.51 [facility] Basophil percentageOrdered B y: Heriberto Perry on 06-07-2023 Basophils/100 WBC (Bld) 0.6 % 0-1 [facility] Bilirubin [Mass/Vol] 0.90 mg/dL 0.20-1.00 [facility] Comment on above: For patients on eltr ombopag therapy, use of Dimension [place] TBIL is not recommended. Chloride [Moles/Vol] 106 mmol/L 98-107 [facility] Cholesterol [Mass/Vol] 167 mg/dL <[address] [facility] Comment on above: <200 mg/dL Desirable 200-240 mg/dL Borderline >240 mg/dL High Risk Eosinophils/100 WBC (Bld) 3.6 % 0-5 [facility] Glucose [Mass/Vol] 98 mg/dL 74-106 [facility] Neutrophils (Bld) [#/Vol] 3.9 10*3/uL 2.0-7.7 [facility] Neutrophils/100 WBC (Bld) 63.9 % 47-70 [facility] Potassium [Moles/Vol] 3.9 mmol/L 3.5-5.1 [facility] Protein [Mass/Vol] 7.4 g/dL 6.4-8.2 [facility] Sodium [Moles/Vol] 140 mmol/L 136-145 [facility] Triglyceride [Mass/Vol] 36 mg/dL <199 [facility] Comment on above: The drugs N-Acetylcy steine and Metamizole may falsely depress this assay.Serum Triglycerides Reference Interval Normal <150 mg/dL Borderline high 150 - 199 mg/dL High 200 - 499 mg/dL Very High > or = 500 mg/dL WBC (Bld) [#/Vol] 6.2 10*3/uL 4.4-11.0 [facility] Blood erythrocytes count (nu mber/volume)Ordered By: Heriberto Perry on 06-07-2023 RBC (Bld) [#/Vol] 5.03 10*6/uL 4.6-6.2 [facility] Blood hemoglobin measurement (mass/volume)Ordered By: Heriberto Perry on 06-07-2023 Hemoglobin (Bld) [Mass/Vol] 14.1 g/dL 13.0-16.5 [facility] Blood lymphocytes/100 leukoc ytesOrdered By: Heriberto Perry on 06-07-2023 Lymphocytes/100 WBC (Bld) 19.4 % 19-41 [facility] Blood monocytes/100 leukocyt esOrdered By: Heriberto Perry on 06-07-2023 Monocytes/100 WBC (Bld) 12.2 % 0-10 [facility] Blood platelet mean volumeOr dered By: Heriberto Perry on 06-07-2023 Platelet mean volume (Bld) [Entitic vol] 9.7 fL 6.2-12.0 [facility] Determination of erythrocyte mean corpuscular volume (MCV)Ordered By: Heriberto Perry on 06-07-2023 MCV (RBC) [Entitic vol] 86.1 fL 80-94 [facility] Hematocrit Auto (Bld) [Volum e fraction]Ordered By: Heriberto Perry on 06-07-2023 Hematocrit (Bld) [Volume fraction] 43.3 % 40-54 [facility] Laboratory - Chemistry and C hemistry - challengeOrdered By: Heriberto Perry on 06-07-2023 ALP [Catalytic activity/Vol] 87 U/L 45-117 [facility] ALT [Catalytic activity/Vol] 30 U/L 16-61 [facility] CO2 [Moles/Vol] 32.0 mmol/L 21.0-32.0 [facility] Globulin (S) [Mass/Vol] 3.9 g/dL 2.2-4.2 [facility] Urea nitrogen/Creatinine [Mass ratio] 20.0 mg/mg 10-20 [facility] - Hematology and Cell countsOrdered By: Heriberto Perry on 06-07-2023 Erythrocyte distribution width (RBC) [Entitic vol] 39.6 fL 35.1-43.9 [facility] Erythrocyte distribution width (RBC) [Ratio] 12.6 % 11.6-14.6 [facility] Immature granulocytes/100 WBC (Bld) 0.300 % 0.0-0.9 [facility] Comment on above: IG% - Immature Granu locytes (promyelocytes, myelocytes and metamyelocytes) > 1% indicates that a LEFT SHIFT is Present. MCH (RBC) [Entitic mass] 28.0 pg 27.0-32.0 [facility] Nucleated RBC/100 WBC (Bld) [Ratio] 0 % 0-5 [facility] Auto ([facility]BC) [Mass/Vol]Or dered By: Heriberto Perry on 06-07-2023 MCHC (RBC) [Mass/Vol] 32.6 g/dL 32-36 [facility] No Panel InformationOrdered By: Heriberto Perry on 06-07-2023 Estimated GFR (MDRD) Amer 97 mL/min >60 [facility] Comment on above: GFR Calc Estimated GFR (MDRD) Non-Af Amer 80 mL/min >60 [facility] Comment on above: Non- GFR Calc Platelets bldOrdered By: Sammie Perry on 06-07-2023 Platelets (Bld) [#/Vol] 214 10*3/uL 150-450 [facility] Serum or plasma albumin david urement (mass/volume)Ordered By: Heriberto Perry on 06-07-2023 Albumin [Mass/Vol] 3.5 g/dL 3.2-5.0 [facility] Serum or plasma albumin/glob ulin mass ratioOrdered By: Heriberto Perry on 06-07-2023 Albumin/Globulin [Mass ratio] 0.9 {ratio} 0.9-2.4 [facility] Serum or plasma calcium david urement (mass/volume)Ordered By: Heriberto Perry on 06-07-2023 Calcium [Mass/Vol] 9.2 mg/dL 8.5-10.1 [facility] Serum or plasma cholesterol in HDL measurement (mass/volume)Ordered By: Heriberto Perry on 06-07-2023 Cholesterol in HDL [Mass/Vol] 74 mg/dL >40 [facility] Comment on above: The drugs N-Acetylcy steine and Metamizole may falsely depress this assay. Reference Range HDL <40 mg/dL Low HDL Cholesterol HDL >or= 60 mg/dL High HDL Cholesterol Serum or plasma cholesterol in VLDL measurement (mass/volume)Ordered By: Heriberto Perry on 06-07-2023 Cholesterol in VLDL [Mass/Vol] 7 mg/dL 5-40 [facility] Serum or plasma creatinine m easurement (mass/volume)Ordered By: Heriberto Perry on 06-07-2023 Creatinine [Mass/Vol] 1.00 mg/dL 0.70-1.30 [facility] Comment on above: The validity of the calculated GFR & GFRAA in patients over 70 years has not been determined. Clinical correlation is essential. Serum or plasma low density lipoprotein (LDL) cholesterol measurement (mass/volume)Ordered By: Heriberto Perry on 06-07-2023 Cholesterol in LDL [Mass/Vol] 86 mg/dL 0-130 [facility] Serum or plasma urea nitroge n measurement (mass/volume)Ordered By: Heriberto Perry on 06-07-2023 Urea nitrogen [Mass/Vol] 20 mg/dL 7-18 [facility] Thin prep Papanicolaou smear with manual screeningOrdered By: Heriberto Perry on 06-07-2023 Thin prep Papanicolaou smear with manual screening 19 U/L 15-37 [facility] Thin prep Papanicolaou smear with manual screening 2 5-15 [facility] CBC W Auto Differential pane l (Bld)on 06-08-2022 Basophils (Bld) [#/Vol] 10*3/uL Normal <0.11 [facility] Comment on above: Order Comment: Speci men Type: BLOOD SPECIMEN Ordering Facility: [facility] Address: [address] [place] [address] Performed By: #### 5 7021-8 #### [facility] CLIA [id number] [address] [place] [address] [place] Basophils/100 WBC (Bld) 0.2 % Normal [facility] Comment on above: Order Comment: Speci men Type: BLOOD SPECIMEN Ordering Facility: [facility] Address: [address] [place] [address] Performed By: #### 5 7021-8 #### [facility] CLIA [id number] [address] [place] [address] [place] Differential cell count method Nom (Bld) Auto Normal [facility] Comment on above: Order Comment: Speci men Type: BLOOD SPECIMEN Ordering Facility: [facility] Address: [address] [place] [address] Performed By: #### 5 7021-8 #### [facility] CLIA [id number] [address] [place] [address] [place] Eosinophils (Bld) [#/Vol] 0.25 10*3/uL Normal <0.46 [facility] Comment on above: Order Comment: Speci men Type: BLOOD SPECIMEN Ordering Facility: [facility] Address: [address] [place] [address] Performed By: #### 5 7021-8 #### [facility] CLIA [id number] [address] [place] [address] [place] Eosinophils/100 WBC (Bld) 4.6 % Normal [facility] Comment on above: Order Comment: Speci men Type: BLOOD SPECIMEN Ordering Facility: [facility] Address: [address] [place] [address] Performed By: #### 5 7021-8 #### [facility] CLIA [id number] [address] [place] [address] [place] Erythrocyte distribution width (RBC) [Ratio] 11.7 % Normal 11.5-15.0 [facility] Comment on above: Order Comment: Speci men Type: BLOOD SPECIMEN Ordering Facility: [facility] Address: [address] [place] [address] Performed By: #### 5 7021-8 #### [facility] CLIA [id number] [address] [place] [address] [place] Hematocrit (Bld) [Volume fraction] 42.0 % Normal 39.0-51.0 [facility] Comment on above: Order Comment: Speci men Type: BLOOD SPECIMEN Ordering Facility: [facility] Address: [address] [place] [address] Performed By: #### 5 7021-8 #### [facility] CLIA [id number] [address] [place] [address] [place] Hemoglobin (Bld) [Mass/Vol] 14.5 g/dL Normal 13.0-17.0 [facility] Comment on above: Order Comment: Speci men Type: BLOOD SPECIMEN Ordering Facility: [facility] Address: [address] [place] [address] Performed By: #### 5 7021-8 #### [facility] CLIA [id number] [address] [place] [address] [place] Immature granulocytes (Bld) [#/Vol] 10*3/uL Normal <0.10 [facility] Comment on above: Order Comment: Speci men Type: BLOOD SPECIMEN Ordering Facility: [facility] Address: [address] [place] [address] Performed By: #### 5 7021-8 #### [facility] CLIA [id number] [address] [place] [address] [place] Immature granulocytes/100 WBC (Bld) 0.2 % Normal [facility] Comment on above: Order Comment: Speci men Type: BLOOD SPECIMEN Ordering Facility: [facility] Address: [address] [place] [address] Performed By: #### 5 7021-8 #### [facility] CLIA [id number] [address] [place] [address] [place] Lymphocytes (Bld) [#/Vol] 2.01 10*3/uL Normal 1.00-4.00 [facility] Comment on above: Order Comment: Speci men Type: BLOOD SPECIMEN Ordering Facility: [facility] Address: [address] [place] [address] Performed By: #### 5 7021-8 #### [facility] CLIA [id number] [address] [place] [address] [place] Lymphocytes/100 WBC (Bld) 37.3 % Normal [facility] Comment on above: Order Comment: Speci men Type: BLOOD SPECIMEN Ordering Facility: [facility] Address: [address] [place] [address] Performed By: #### 5 7021-8 #### [facility] CLIA [id number] [address] [place] [address] [place] MCH (RBC) [Entitic mass] 29.1 pg Normal 26.0-34.0 [facility] Comment on above: Order Comment: Speci men Type: BLOOD SPECIMEN Ordering Facility: [facility] Address: [address] [place] [address] Performed By: #### 5 7021-8 #### [facility] CLIA [id number] [address] [place] [address] [place] MCHC (RBC) [Mass/Vol] 34.5 g/dL Normal 30.5-36.0 [facility] Comment on above: Order Comment: Speci men Type: BLOOD SPECIMEN Ordering Facility: [facility] Address: [address] [place] [address] Performed By: #### 5 7021-8 #### [facility] CLIA [id number] [address] [place] [address] [place] MCV (RBC) [Entitic vol] 84.2 fL Normal 80.0-100.0 [facility] Comment on above: Order Comment: Speci men Type: BLOOD SPECIMEN Ordering Facility: [facility] Address: [address] [place] [address] Performed By: #### 5 7021-8 #### [facility] CLIA [id number] [address] [place] [address] [place] Monocytes (Bld) [#/Vol] 0.41 10*3/uL Normal <0.87 [facility] Comment on above: Order Comment: Speci men Type: BLOOD SPECIMEN Ordering Facility: [facility] Address: [address] [place] [address] Performed By: #### 5 7021-8 #### [facility] CLIA [id number] [address] [place] [address] [place] Monocytes/100 WBC (Bld) 7.6 % Normal [facility] Comment on above: Order Comment: Speci men Type: BLOOD SPECIMEN Ordering Facility: [facility] Address: [address] [place] [address] Performed By: #### 5 7021-8 #### [facility] CLIA [id number] [address] [place] [address] [place] Neutrophils (Bld) [#/Vol] 2.70 10*3/uL Normal 1.45-7.50 [facility] Comment on above: Order Comment: Speci men Type: BLOOD SPECIMEN Ordering Facility: [facility] Address: [address] [place] [address] Performed By: #### 5 7021-8 #### [facility] CLIA [id number] [address] [place] [address] [place] Neutrophils/100 WBC (Bld) 50.1 % Normal [facility] Comment on above: Order Comment: Speci men Type: BLOOD SPECIMEN Ordering Facility: [facility] Address: [address] [place] [address] Performed By: #### 5 7021-8 #### [facility] CLIA [id number] [address] [place] [address] [place] Nucleated RBC (Bld) [#/Vol] 10*3/uL Normal <0.01 [facility] Comment on above: Order Comment: Speci men Type: BLOOD SPECIMEN Ordering Facility: [facility] Address: [address] [place] [address] Performed By: #### 5 7021-8 #### [facility] CLIA [id number] [address] [place] [address] [place] Nucleated RBC/100 WBC (Bld) [Ratio] 0.0 /100 WBC Normal [facility] Comment on above: Order Comment: Speci men Type: BLOOD SPECIMEN Ordering Facility: [facility] Address: [address] [place] [address] Performed By: #### 5 7021-8 #### [facility] CLIA [id number] [address] [place] [address] [place] Platelet mean volume (Bld) [Entitic vol] 9.4 fL Normal 9.0-12.7 [facility] Comment on above: Order Comment: Speci men Type: BLOOD SPECIMEN Ordering Facility: [facility] Address: [address] [place] [address] Performed By: #### 5 7021-8 #### [facility] CLIA [id number] [address] [place] [address] [place] Platelets (Bld) [#/Vol] 223 10*3/uL Normal 150-400 [facility] Comment on above: Order Comment: Speci men Type: BLOOD SPECIMEN Ordering Facility: [facility] Address: [address] [place] [address] Performed By: #### 5 7021-8 #### [facility] CLIA [id number] [address] [place] [address] [place] RBC (Bld) [#/Vol] 4.99 10*6/uL Normal 4.20-6.00 [facility] Comment on above: Order Comment: Speci men Type: BLOOD SPECIMEN Ordering Facility: [facility] Address: [address] [place] [address] Performed By: #### 5 7021-8 #### [facility] CLIA [id number] [address] [place] [address] [place] WBC (Bld) [#/Vol] 5.39 10*3/uL Normal 3.70-11.00 [facility] Comment on above: Order Comment: Speci men Type: BLOOD SPECIMEN Ordering Facility: [facility] Address: [address] [place] [address] Performed By: #### 5 7021-8 #### [facility] CLIA [id number] [address] [place] [address] [place] Comprehensive metabolic 2000 panelon 06-08-2022 Albumin [Mass/Vol] 4.2 g/dL Normal 3.9-4.9 [facility] Comment on above: Order Comment: Speci men Type: BLOOD SPECIMEN Ordering Facility: [facility] Address: [address] [place] [address] Performed By: #### 2 4323-8 #### [facility] CLIA [id number] [address] [place] [address] [place] ALP [Catalytic activity/Vol] 78 U/L Normal 38-113 [facility] Comment on above: Order Comment: Speci men Type: BLOOD SPECIMEN Ordering Facility: [facility] Address: [address] [place] [address] Performed By: #### 2 4323-8 #### [facility] CLIA [id number] [address] [place] [address] [place] ALT [Catalytic activity/Vol] 16 U/L Normal 10-54 [facility] Comment on above: Order Comment: Speci men Type: BLOOD SPECIMEN Ordering Facility: [facility] Address: [address] [place] [address] Performed By: #### 2 4323-8 #### [facility] CLIA [id number] [address] [place] [address] [place] Anion gap [Moles/Vol] 7 mmol/L Low 9-18 [facility] Comment on above: Order Comment: Speci men Type: BLOOD SPECIMEN Ordering Facility: [facility] Address: [address] [place] [address] Performed By: #### 2 4323-8 #### [facility] CLIA [id number] [address] [place] [address] [place] AST [Catalytic activity/Vol] 19 U/L Normal 14-40 [facility] Comment on above: Order Comment: Speci men Type: BLOOD SPECIMEN Ordering Facility: [facility] Address: [address] [place] [address] Performed By: #### 2 4323-8 #### [facility] CLIA [id number] [address] [place] [address] [place] Bilirubin [Mass/Vol] 0.8 mg/dL Normal 0.2-1.3 [facility] Comment on above: Order Comment: Speci men Type: BLOOD SPECIMEN Ordering Facility: [facility] Address: [address] [place] [address] Performed By: #### 2 4323-8 #### [facility] CLIA [id number] [address] [place] [address] [place] Calcium [Mass/Vol] 9.4 mg/dL Normal 8.5-10.2 [facility] Comment on above: Order Comment: Speci men Type: BLOOD SPECIMEN Ordering Facility: [facility] Address: [address] [place] [address] Performed By: #### 2 4323-8 #### [facility] CLIA [id number] [address] [place] [address] [place] Chloride [Moles/Vol] 102 mmol/L Normal 97-105 [facility] Comment on above: Order Comment: Speci men Type: BLOOD SPECIMEN Ordering Facility: [facility] Address: [address] [place] [address] Performed By: #### 2 4323-8 #### [facility] CLIA [id number] [address] [place] [address] [place] CO2 [Moles/Vol] 29 mmol/L Normal 22-30 [facility] Comment on above: Order Comment: Speci men Type: BLOOD SPECIMEN Ordering Facility: [facility] Address: [address] [place] [address] Performed By: #### 2 4323-8 #### [facility] CLIA [id number] [address] [place] [address] [place] Creatinine [Mass/Vol] 1.06 mg/dL Normal 0.73-1.22 [facility] Comment on above: Order Comment: Speci men Type: BLOOD SPECIMEN Ordering Facility: [facility] Address: [address] [place] [address] Performed By: #### 2 4323-8 #### [facility] [id number] [address] [place] [address] [place] ESTIMATED GLOMERULAR FILTRATION RATE 80 mL/min/1.73m??? Normal >=60 [facility] Comment on above: Order Comment: Speci men Type: BLOOD SPECIMEN Ordering Facility: [facility] Address: [address] [place] [address] Result Comment: Daisha mated Glomerular Filtration Rate [...] GFR. Performed By: #### 2 4323-8 #### [facility] [id number] [address] [place] [address] [place] Glucose [Mass/Vol] 96 mg/dL Normal 74-99 [facility] Comment on above: Order Comment: Speci men Type: BLOOD SPECIMEN Ordering Facility: [facility] Address: [address] [place] [address] Result Comment: The [place] [employer] (ADA) provides guidance for cutoff [...] Standards of Medical Care in Diabetes 2016, [employer]. Diabetes Care. 2016.39(Suppl 1). Performed By: #### 2 4323-8 #### [facility] CLIA [id number] [address] [place] [address] [place] Potassium [Moles/Vol] 4.4 mmol/L Normal 3.7-5.1 [facility] Comment on above: Order Comment: Oliver el Type: BLOOD SPECIMEN Ordering Facility: [facility] Address: [address] [place] [address] Performed By: #### 2 4323-8 #### [facility] CLIA [id number] [address] [place] [address] [place] Protein [Mass/Vol] 7.0 g/dL Normal 6.3-8.0 [facility] Comment on above: Order Comment: Oliver el Type: BLOOD SPECIMEN Ordering Facility: [facility] Address: [address] [place] [address] Performed By: #### 2 4323-8 #### [facility] [id number] [address] [place] [address] [place] Sodium [Moles/Vol] 138 mmol/L Normal 136-144 [facility] Comment on above: Order Comment: Oliver el Type: BLOOD SPECIMEN Ordering Facility: [facility] Address: [address] [place] [address] Performed By: #### 2 4323-8 #### [facility] CL[facility] [id number] [address] [place] [address] [place] Urea nitrogen [Mass/Vol] 24 mg/dL Normal 9-24 [facility] Comment on above: Order Comment: Speci men Type: BLOOD SPECIMEN Ordering Facility: [facility] Address: [address] [place] [address] Performed By: #### 2 4323-8 #### [facility] CLIA [id number] [address] [place] [address] [place] Lipid 1996 panelon 3 Cholesterol [Mass/Vol] 175 mg/dL Normal <200 [facility] Comment on above: Order Comment: Speci men Type: BLOOD SPECIMEN Ordering Facility: [facility] Address: [address] [place] [address] Result Comment: <200 mg/dL, Desirable 200-239 mg/dL, Borderline high >239 mg/dL, High Performed By: #### 2 4331-1 #### [facility] CLIA [id number] [address] [place] [address] [place] [facility] CLIA [id number] [address] [place] [address] [place] Cholesterol in HDL [Mass/Vol] 56 mg/dL Normal >39 [facility] Comment on above: Order Comment: Johnnyi men Type: BLOOD SPECIMEN Ordering Facility: [facility] Address: [address] [place] [address] Result Comment: 40-5 9 mg/dL, Acceptable >59 mg/dL, High: Negative risk factor for coronary heart disease <40 mg/dL, Low: Positive risk factor for coronary heart disease Performed By: #### 2 4331-1 #### [facility] CLIA [id number] [address] [place] [address] [place] [facility] CLIA [id number] [address] [place] [address] [place] Cholesterol in LDL [Mass/Vol] 108 mg/dL High <100 [facility] Comment on above: Order Comment: Speci men Type: BLOOD SPECIMEN Ordering Facility: [facility] Address: [address] [place] [address] Result Comment: <100 mg/dL, Optimal 100-129 mg/dL, Near optimal/above optimal 130-159 mg/dL, Borderline high 160-189 mg/dL, High >189 mg/dL, Very high Secondary prevention optimal LDL Cholesterol levels are recommended to be < 70 mg/dL Performed By: #### 2 4331-1 #### [facility] CLIA [id number] [facility] [place] [address] [place] [facility] CLIA [id number] [address] [place] [address] [place] Cholesterol in LDL/Cholesterol in HDL [Mass ratio] 1.93 {ratio} Normal <2.54 [facility] Comment on above: Order Comment: Speci men Type: BLOOD SPECIMEN Ordering Facility: [facility] Address: [address] [place] [address] Result Comment: Refe rence: 1. National Cholesterol Education Program ATP III Guideline At-A-Glance Quick Desk Reference: National Heart, Lung, and Blood [place]. National Institutes of Health. 2001: NIH Publication No. 01-3305. 2. An International Atherosclerosis Society position paper: global recommendations for the management of dyslipidemia: executive summary, Atherosclerosis. 2014: 232(2):410-413. Performed By: #### 2 4331-1 #### [facility] CLIA [id number] [facility] [place] [address] [place] [facility] CLIA [id number] [address] [place] [address] [place] Cholesterol in VLDL [Mass/Vol] 11 mg/dL Normal <30 [facility] Comment on above: Order Comment: Speci men Type: BLOOD SPECIMEN Ordering Facility: [facility] Address: [address] [place] [address] Performed By: #### 2 4331-1 #### [facility] CLIA [id number] [facility] [place] [address] [place] [facility] CLIA [id number] [address] [place] [address] [place] Cholesterol non HDL [Mass/Vol] 119 mg/dL Normal <130 [facility] Comment on above: Order Comment: Speci men Type: BLOOD SPECIMEN Ordering Facility: [facility] Address: [address] [place] [address] Result Comment: <130 mg/dL, Optimal 130-159 mg/dL, Near optimal/above optimal 160-189 mg/dL, Borderline high 190-219 mg/dL, High >219 mg/dL, Very high Secondary prevention optimal non HDL Cholesterol levels are recommended to be <100 mg/dL Performed By: #### 2 4331-1 #### [facility] CLIA [id number] [facility] [place] [address] [place] [facility] [id number] [address] [place] [address] [place] Cholesterol.total/Chol esterol in HDL [Mass ratio] 3.13 {ratio} Normal <5.10 [facility] Comment on above: Order Comment: Speci men Type: BLOOD SPECIMEN Ordering Facility: [facility] Address: [address] [place] [address] Performed By: #### 2 4331-1 #### [facility] CLIA [id number] [facility] [place] [address] [place] [facility] CLIA [id number] [address] [place] [address] [place] FASTING TIME 12 hrs Normal [facility] Comment on above: Order Comment: Johnnyi men Type: BLOOD SPECIMEN Ordering Facility: [facility] Address: [address] [place] [address] Performed By: #### 2 4331-1 #### [facility] CLIA [id number] [facility] [place] [address] [place] [facility] CLIA [id number] [address] [place] [address] [place] Triglyceride [Mass/Vol] 54 mg/dL Normal <150 [facility] Comment on above: Order Comment: Speci men Type: BLOOD SPECIMEN Ordering Facility: [facility] Address: [address] [place] [address] Result Comment: <150 mg/dL, Normal 150-199 mg/dL, Borderline high 200-499 mg/dL, High >499 mg/dL, Very high Performed By: #### 2 4331-1 #### [facility] CLIA [id number] [address] [place] [address] [place] [facility] CLIA [id number] [address] [place] [address] [place] PSA/PROSTSPECAG SCRNon 06-08 Prostate specific Ag [Mass/Vol] 2.28 ng/mL Normal <2.60 [facility] Comment on above: Order Comment: Speci men Type: BLOOD SPECIMEN Ordering Facility: [facility] Address: [address] [place] [address] Result Comment: Tota l PSA test methodology used is the Electrochemiluminescence Immunoassay by [employer]. Total PSA values by differing methodologies cannot be interchanged. Performed By: #### P SAS1 #### [facility] CLIA [id number] [address] [place] [address] [place] Vital Signs Date Time Vital Sign Value Performing Clinician Faci armani 08-17-2024 10:55-0400 Body temperature 97.8 [degF] Dr. Heriberto Perry DO Work Phone: [facility] 08-17-2024 10:55-0400 Diastolic blood pressure 76 mm[Hg] Dr. Heriberto Perry DO Work Phone: [facility] 08-17-2024 10:55-0400 Heart rate 61 /min Dr. Heriberto Perry DO Work Phone: [facility] 08-17-2024 10:55-0400 Respiratory rate 16 /min Dr. Heriberto Perry DO Work Phone: [facility] 08-17-2024 10:55-0400 SaO2% (BldA) [Mass fraction] 97 % Dr. Heriberto Perry DO Work Phone: [facility] 08-17-2024 10:55-0400 Systolic blood pressure 92 mm[Hg] Dr. Heriberto Perry DO Work Phone: [facility] 08-17-2024 09:08-0400 Body height 177.[address] Heriberto Perry DO Work Phone: [facility] 08-17-2024 09:08-0400 Body mass index (BMI) [Ratio] 23.3 kg/m2 Dr. Heriberto Perry DO Work Phone: [facility] 08-17-2024 09:08-0400 Body weight 73.[address] Heriberto Perry DO Work Phone: [facility] 07-11-2024 14:55-0500 Body mass index (BMI) [Ratio] 25.1 kg/m2 Dr. Heriberto Perry DO Work Phone: [facility] 07-11-2024 14:55-0500 Body temperature 97.8 [degF] Dr. Heriberto Perry DO Work Phone: [facility] 07-11-2024 14:55-0500 Body weight 79.[address] Heriberto Perry DO Work Phone: [facility] 07-11-2024 14:55-0500 Diastolic blood pressure 87 mm[Hg] Dr. Heriberto Perry DO Work Phone: [facility] 07-11-2024 14:55-0500 Heart rate 69 /min Dr. Heriberto Perry DO Work Phone: [facility] 07-11-2024 14:55-0500 Respiratory rate 18 /min Dr. Heriberto Perry DO Work Phone: [facility] 07-11-2024 14:55-0500 SaO2% (BldA) [Mass fraction] 99 % Dr. Heriberto Perry DO Work Phone: [facility] 07-11-2024 14:55-0500 Systolic blood pressure 168 mm[Hg] Dr. Heriberto Perry DO Work Phone: [facility] Encounters Encounter Date Encounter Type Care Provider Facility Start: 03-07-2025 Encounter for genera l adult medical examination without abnormal findings [facility] Start: 03-07-[address] [facility] Facility: [facility] Start: 08-17-[address] [facility] Facility: [facility] Start: 08-17-2024 Non-patient / Non-visit Dr. Leanne Mascorro MD -[facility] Start: 08-17-2024 End: 08-17-2024 Admission to same day surgery center Dr. Lexx Mascorro MD -Endoscopy Work Phone: Start: 08-17-2024 End: 08-17-[address] Heriberto Perry DO Work Phone: [facility] Work Phone: Start: 07-11-2024 End: 07-11-[address] Lexx Mascorro MD -[facility] Work Phone: Start: 07-11-2024 End: 07-11-2024 [facility] Start: 07-03-2024 Encounter for genera l adult medical examination without abnormal findings [facility] Start: 06-07-2024 End: 06-07-[address] Heriberto Perry DO -Laboratory Work Phone: Start: 06-07-2024 End: 06-07-2024 ambulatory Heriberto Vicky Facility:[facility] Start: 06-14-2023 End: 06-14-2023 ambulatory [facility] Work Phone: Start: 06-14-2023 End: 06-14-2023 Patient encounter procedure [facility], James Moraes DON Start: 06-07-2023 End: 06-07-2023 ambulatory [facility] Work Phone: Start: 06-07-2023 End: 06-07-2023 Patient encounter procedure [facility] Work Phone: Start: 06-08-2022 End: 06-08-2022 ambulatory Facility:[facility] Procedures Date Procedure Procedure Detail Performing Clinician Start: 08-17-[address] Heriberto crane DO Work Phone: Plan of Treatment Date Care Activity Detail Author Start: 08-17-2024 Patient discharge [facility] Colonoscopy [facility] Patient referral [facility] Work Phone: [facility] Payers Date Payer Category Payer Self-pay 2020 Unknown [id number] Unknown [id number] 2.16.8 [id number] Unknown [id number] 2.16.8 [id number] Unknown [id number] 2.16.8 [id number] Unknown [id number] 2.16.8 [id number] Unknown [id number] 2.16.8 [id number] Social History Date Type Detail Facility Tobacco smoking stat us NHIS Unknown if ever smoked [facility] Work Phone: Start: 1960 Sex Assigned At Male [facility] Start: 08-16-2024 [facility] Start: 08-17-2024 Sex Male (finding) [facility] Goals Date Patient Goal Desired Activity /State Mental Status Date Assessment Result Facility 08-17-2024 Cognitive function [facility] Work Phone: 08-17-2024 Cognitive function Patient Oriyusuf humphries Person;Place;Time [facility] Work Phone: Clinical Notes 07-11-2024 to 08-17-2024 Note Date & Type Note Facility 08-17-2024 Consult note Note Date/Time August 17, 2024 8:52am [facility] Medical Records Department [address] [place] [address] Pre-Anesthesia Evaluation 08/17/24 0852 MR#: [id number] Acct: [id number] Name: PAUL RAMÍREZ Rep #:[id number] : 1960 64 From: Lit Acosta MD PCP: Dr. Heriberto Perry, DO Status:REG SDC Y Race: C Location: [place] [address] ASA Classification* ASA Classification ASA Classification: 2 [...] EGD, COLONOSCOPY Anesthesia History Anesthesia History - supervisor typesetting: Anesthesia History - supervisor typesetting Hx Hospitalization No 08/16/24 11:49 Any Problems [...] take am of surgery PONV PONV - supervisor typesetting: PONV - supervisor typesetting Female No 08/16/24 11:49 HX of Motion [...] 07/11/24 14:55 Respiratory Assessment Respiratory Assessment - supervisor typesetting: Respiratory Tract Infection Hx - supervisor typesetting Hx Respiratory Tract Infection No 08/16/24 11:49 STOP Sleep Apnea STOP Sleep Apnea - supervisor typesetting: STOP Sleep Apnea - supervisor typesetting Hx Hypertension Yes 08/16/24 11:49 Hx Sleep [...] Tobacco Use History Tobacco Use History - supervisor typesetting: Tobacco Use History - supervisor typesetting Tobacco Use Smoking Status Never smoker 08/16/24 11:49 Hx Tobacco Use No 08/16/24 11:49 Years Smoking Packs Smoked per Day Smoking Cessation Date was within the last 15 years Hx Smoking Cessation Date Hx Smoking Cessation Counseling Hematologic Medial History Hematologic Hx - supervisor 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 Specify any problems Hx of Preganancy in last 3 N/A 08/16/24 11:49 Months Nurse Filling Out Transfusion [facility] 08/16/24 11:49 & Questions: Date: 08/16/24 08/16/24 11:49 Time: 11:55 08/16/24 11:49 Patient unable to answer at this time (ie. confused, unrespo /Reproduction History /Reproductive History - supervisor typesetting: /Reproductive Hx- supervisor typesetting Hx Now Gestational Age (in weeks): EDC: [...] MD Cosigner Signature: Date CC: ~ Signed [facility] Work Phone: 1(737) 924-308603-14-2025 Consult note [facility] Medical Records Department [address] [place] [address] Anesthesia Postop Eval I 08/17/24 1038 MR#: [id number] Acct: [id number] Name: ISABELPAUL PETERSEN Rep #:[id number] : 1960 64 From: Jean-Claude Madsen PCP: Dr. Heriberto Perry, DO Status:REG SDC Y Race: C Location: [place] [address] Anesthesia: Postop Eval I Current Vital Signs [...] Jean-Claude Hathaway Signature: Date CC: ~ Signed [facility]03-14-2025 Procedure note [facility] Medical Records Department [address] [place] [address] Colonoscopy Report MR#: [id number] Acct: [id number] Name: PAUL RAMÍREZ Rep #:[id number] : 1960 64 From: Lexx elder MD [...] screening purposes. Procedure Code(s): --- Professional --- 53453, Colonoscopy, flexible; diagnostic, including collection of specimen(s) by brushing or washing, when performed (separate procedure) Diagnosis Code(s): --- Professional --- R19.5, Other fecal abnormalities CPT copyright 2021 [employer]. All rights reserved. The codes documented in this report are preliminary and upon bicycle racer review may be revised to meet current compliance requirements. Lexx Mascorro MD 08/17/2024 10:32:03 AM This report has been signed electronically. Number of Addenda: 0 Note Initiated On: 08/17/2024 10:17 AM 08/17/24 1032 Date _ Lexx Mascorro [facility] Signature: Date (if indicated) CC: Dr. Lexx Mascorro MD; Dr. Heriberto Perry, ~ Date Dictated: 08/17/24 1017 Date Transcribed: Nurse Reviewer: AC Signed [facility]03-14-2025 Procedure note [facility] Medical Records Department [address] [place] [address] Operative Report - CC Letter MR#: [id number] Acct: [id number] Name: PAUL RAMÍREZ Rep #:[id number] : 1960 64 From: Lexx elder MD PCP: Dr. Heriberto Perry, Status:REG [facility] [place] [facility] 08/17/2024 Heriberto Perry [address] [facility] [place] [address] [place] [address] Re : Colonoscopy procedure for Paul Ramírez [...] ~ Date Dictated: 08/17/24 1017 Date Transcribed: Nurse Reviewer: AC Signed [facility]03-14-2025 Procedure note [facility] Medical Records Department [address] [place] [address] EGD Report MR#: [id number] Acct: [id number] Name: PAUL RAMÍREZ Rep #:[id number] : 1960 64 From: Lexx elder MD PCP: Dr. Heriberto Perry, Status:[facility] Patient Name: Paul Ramírez Procedure Date: [...] present medications. Procedure Code(s): --- Professional --- 64847, Esophagogastroduodenoscopy, flexible, transoral; diagnostic, including collection of specimen(s) by brushing or washing, when performed (separate procedure) Diagnosis Code(s): --- Professional --- R19.5, Other fecal abnormalities CPT copyright 2021 [employer]. All rights reserved. The codes documented in this report are preliminary and upon bicycle racer review may be revised to meet current compliance requirements. Lexx Mascorro MD 08/17/2024 10:30:52 AM This report has been signed electronically. Number of Addenda: 0 Note Initiated On: 08/17/2024 9:48 AM 08/17/24 1030 Date _ Lexx Hathaway Signature: Date (if indicated) CC: Dr. Lexx Mascorro MD; Dr. Heriberto Perry, DO ~ Date Dictated: 08/17/24 0948 Date Transcribed: Nurse Reviewer: AC Signed [facility]03-14-2025 Procedure note [facility] Medical Records Department [address] [place] [address] Operative Report - CC Letter MR#: [id number] Acct: [id number] Name: PAUL RAMÍREZ Rep #:[id number] : 1960 64 From: Lexx elder MD PCP: Dr. Heriberto Perry, DO Status:REG [facility] 08/17/2024 Heriberto Perry [address] [facility] [place] [address] [place] [address] Re : Upper GI endoscopy procedure for [...] DO ~ Date Dictated: 08/17/2448 Date Transcribed: Nurse Reviewer: FRANCIA Deng [facility]03-14-2025 History and physical note [facility] Medical Records Department [address] [place] [address] History & Physical Exam 08/17/2446 MR#: [id number] Acct: [id number] Name: PAUL RAMÍREZ Rep #:[id number] : 1960 64 From: Lexx elder MD PCP: Dr. Heriberto Perry, Status:REG [facility] Location: [address] History and Physical Date of Admission: [...] proceed with procedure. Lexx Mascorro MD Pager: [facility] [address] [place] [address], [address] [place] [address] Office: I have examined the patient and the H&P has been reviewed. There are no clinicalchanges since date of exam. 08/17/24 0947 Cosigner Signature (if applicable): CC: Dr. Lexx Mascorro MD; Dr. Heriberto Perry, DO~ Signed [facility]03-14-2025 [facility] Medical Records Department [address] [place] [address] History Physical Exam 08/17/24 0946 MR#: [id number] Acct: [id number] Name: PAUL RAMÍREZ Rep #: [id number] : 1960 64 From: Lexx Mascorro MD PCP: Dr. Heriberto Perry, Status:REG [facility] Location: [place] [address] History and Physical Date of Admission: 08/17/24 [...] proceed with procedure. Lexx Mascorro MD Pager: [facility] [address] [facility], [address] [place] [address] Office: I have examined the patient and the H P has been reviewed. There are no clinical changes since date of exam. 08/17/24 0947 Cosigner Signature (if applicable): CC: Dr. Lexx Mascorro MD; Dr. Heriberto Perry DO [facility] Consult note [facility] Medical Records Department [address] [place] [address] Pre-Anesthesia Evaluation 08/17/24 0852 MR#: [id number] Acct: [id number] Name: PAUL RAMÍREZ Rep #:[id number] : 1960 64 From: Lit Acosta MD PCP: Dr. Heriberto Perry DO Status:REG SDC Y Race: C Location: [place] [address] ASA Classification* ASA Classification ASA Classification: 2 [...] EGD, COLONOSCOPY Anesthesia History Anesthesia History - supervisor typesetting: Anesthesia History - supervisor typesetting Hx Hospitalization No 08/16/24 11:49 Any Problems [...] take am of surgery PONV PONV - supervisor typesetting: PONV - supervisor typesetting Female No 08/16/24 11:49 HX of Motion [...] 07/11/24 14:55 Respiratory Assessment Respiratory Assessment - supervisor typesetting: Respiratory Tract Infection Hx - supervisor typesetting Hx Respiratory Tract Infection No 08/16/24 11:49 STOP Sleep Apnea STOP Sleep Apnea - supervisor typesetting: STOP Sleep Apnea - supervisor typesetting Hx Hypertension Yes 08/16/24 11:49 Hx Sleep [...] Tobacco Use History Tobacco Use History - supervisor typesetting: Tobacco Use History - supervisor typesetting Tobacco Use Smoking Status Never smoker 08/16/24 11:49 Hx Tobacco Use No 08/16/24 11:49 Years Smoking Packs Smoked per Day Smoking Cessation Date was within the last 15 years Hx Smoking Cessation Date Hx Smoking Cessation Counseling Hematologic Medial History Hematologic Hx - supervisor 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 Specify any problems Hx of Preganancy in last 3 N/A 08/16/24 11:49 Months Nurse Filling Out Transfusion [place] 08/16/24 11:49 & Questions: Date: 08/16/24 08/16/24 11:49 Time: 11:55 08/16/24 11:49 Patient unable to answer at this time (ie. confused, unrespo /Reproduction History /Reproductive History - supervisor typesetting: /Reproductive Hx- supervisor typesetting Hx Now Gestational Age (in weeks): EDC: [...] MD Cosigner Signature: Date CC: ~ Signed [facility]02-05-2025 Evaluation note* Diagnosis Onset Date Resolution Status Admit Date Positive fecal occult blood test acute July 11 2:43pm [facility] Work Phone: Consult note Author Jean-Claude Madsen [facility] Note Date/Time August 17, 2024 10: 39am [facility] Medical Records Department [address] [place] [address] Anesthesia Postop Eval I 08/17/24 1038 MR#: [id number] Acct: [id number] Name: PAUL RAMÍREZ Rep #:[id number] : 1960 64 From: Jean-Claude Madsen PCP: Dr. Heriberto Perry, DO Status:REG SDC Y Race: C Location: [place] [address] Anesthesia: Postop Eval I Current Vital Signs [...] Jean-Claude Gutierrezignnella Signature: Date CC: ~ Signed [facility] Work Phone: Evaluation noteNo assessment information available [facility] Work Phone: History and physical note Author Lexx Mascorro [facility] Note Date/Time August 17, 2024 9:4 7am [facility] Medical Records Department [address] [place] [address] History & Physical Exam 08/17/24 0946 MR#: [id number] Acct: [id number] Name: PAUL RAMÍREZ Rep #:[id number] : 1960 64 From: Lexx elder MD PCP: Dr. Heriberto Perry, DO Status:[facility] Location: [place] [address] History and Physical Date of Admission: 08/17/24 [...] proceed with procedure. Lexx Mascorro MD Pager: [facility] [address] [place] [address], [address] [place] [address] Office: I have examined the patient and the H&P has been reviewed. There are no clinicalchanges since date of exam. 08/17/24 0947 <Electronically signed by Lexx Mascorro MD> Cosigner Signature (if applicable): CC: Dr. Lexx Mascorro MD; Dr. Heriberto Perry, DO~ Signed [facility] Work Phone: Reason for referral (narrative)No reason for referral [facility] Work Phone: Summary Purpose Family History No Family History Records FoundNo Family History Records Found Advance Directives No Advanced Directives Records Found Advance Directive Response Recorded Date/ Time Living Will Yes August 16, 2024 11:49am Power of Dog Warden Yes August 16 11:49am Name of Medical Power of Dog Warden August 16, 2024 11:49am Chief Complaint and Reason for Visit Chief Complaint Admit Date BLOOD IN STOOL July 11, 2024 2 :43pm Reason for Visit Admit Date Positive fecal occult blood test Februar 2024 2:43pm Additional Source Comments (unrecognized sect ion and content) No Status Records FoundNo Status Records Found INFORMATION SOURCE (unrecogn ized section and content) DATE CREATED AUTHOR 06/09/2022 [facility] DATE CREATED AUTHOR AUTHOR'S ORGANIZ ATION 03/12/2025 [facility] Care Teams (unrecognized sec tion and content) [...] June 07, 2024 Dr. Heriberto Perry DO Referring Provider Active Start: June [...] BE BASED ON THE PRIMARY CLINICAL RECORDS. [employer] [facility]. provides no warranty or guarantee of the accuracy or completeness of information in this document.
[2025-04-26] MEDS: Potassium Chloride Oral Tablet 20 MEQ 40 MEQ PO (08:39)
--- NOTE | 2025-04-26 10:08 | CON.PCM.CA_ITS ---
Assessment & Plan Assessment/Plan (1) History of hypertension: PLAN: Considering the possibility of vasovagal or neurocardiogenic syncope, we will attempt eliminating the diuretic component and his blood pressure regimen and just uptitrate the dose of lisinopril in addition to encouraging adequate hydration (2) AV block: PLAN: Few nonconducted sinus beats however no definitive prolonged duration of second-degree AV block or complete heart block. Check thyroid function tests and Lyme titer (3) Syncope: PLAN: Suspect neurocardiogenic however due to family history for premature CAD, cannot fully rule out ischemia to the right coronary artery playing a role in the above for which we will obtain a stress test with Myocard fusion imaging to rule out such a possibility. He is not on AV blocking agents. (4) Hypertension: PLAN: Definite need for long-term adequate BP control for goal BP less than 120/80 due to mildly dilated ascending aorta 3.8 cm (5) Hypokalemia: PLAN: Replace potassium and hopefully we can discontinue the use of hydrochlorothiazide long-term (6) Lipids blood increased: PLAN: Recent lipid panel demonstrates LDL 98 HDL 80 and will dictate the need for any pharmacological intervention depending on the stress test findings HPI Consult Data Date of Consult: 04/26/25 HPI Narrative Reason for Consultation: Syncope HPI Narrative: SERINA HALL, is a 65 M who presents with sudden collapse and syncope while waiting for his to undergo appendectomy and in the emergency department was evaluated and was noted on the environmental monitoring technician to have sinus bradycardia with short SC interval however narrow QRS complex and there was occasional sinus beats not conducting noted on a rhythm strip however the twelve-lead EKG demonstrated sinus rhythm. He denies any nausea vomiting associated with the sudden episode noted above while he is sitting on the chair waiting for his however he also denies any tunnel vision or symptoms classic for vasovagal reaction. He recalls similar event occurring 4 to 5 years ago without any consequences or cardiac workup. No history of definite tick bite or Lyme disease however is out in the [place] and runs a very active lifestyle without describing angina or claudication. However he recalls a family history for major CAD including his mom and dad both sustaining coronary vascularization prior to the age of 60. He denies any recent travel. He denies any tobacco alcohol use. He denies any history of venous thromboembolism or prolonged sedentary status. He denies any recent surgery. Potassium was 3.3 and he continues to be on lisinopril 20 hydrochlorothiazide 12.5 mg daily and admits to some poor oral hydration throughout the day. [facility] Medical History Wears contact lenses Non-smoker Leg cramps Hypertension Hemorrhoids Positive fecal occult blood test Home Medications ?Medication ?Instructions ?Recorded ?Last Taken ?Type lisinopril 20 1 tab PO DAILY HYPERTESION 0 07/12/24 08/16/24 History mg-hydrochlorothiazide 12.5 mg tablet Allergy/AdvReac Type Severity Reaction Status Date / Time No Known Allergies Allergy Verified 04/26/25 05:26 Surgical History History of ankle surgery Hx of tonsillectomy Social History household members: spouse housing: house Smoking Status: Never smoker alcohol intake: never substance use type: does not use ROS ROS Narrative Review of all other systems as per HPI nonrevealing Physical Exam Const alert and oriented x3 HEENT normocephalic and head/scalp atraumatic Eyes PERRL and EOMs intact bilaterally Neck full ROM Carotids: normal carotid upstroke Lymph Lymphatic: no lymphadenopathy noted and lymphedema Chest inspection of chest normal and palpation of chest normal Resp normal respiratory effort Cardio regular rate and regular rhythm Rate: regular rate GI normal to inspection, nondistended, normoactive bowel sounds Palpation: no hepatosplenomegaly no CVA tenderness and external exam normal Back/Spine no CVA tenderness Extremity normal to inspection Skin no rashes or lesions noted Psych mental status grossly normal Objective Data Vital Signs: Vital Signs Temp Pulse Resp BP Pulse Ox O2 Del Method 98.0 F 62 16 172/97 H 99 Room Air 04/26/25 08:01 04/26/25 08:10 04/26/25 08:01 04/26/25 08:10 04/26/25 08:01 04/26/25 07:57 Oxygen Delivery Method Room Air Weight: 169 lb 15.622 oz Body Mass Index (BMI) 24.3 Intake & Output: Intake and Output for Last 24 Hours 04/24/25 04/25/25 04/26/25 23:59 23:59 23:59 Intake Total 1000 / 1000 Balance 1000 / 1000 Lab / Micro Data Attestation: I reviewed the patient's lab results. 04/26/25 05:31 04/26/25 05:31 Labs: Laboratory Results - last 24 hr 04/26/25 05:26: POC Glucose 135 H 04/26/25 05:31: WBC 7.8, RBC 5.10, Hgb 14.7, Hct 42.4, MCV 83.1, MCH 28.8, MCHC 34.7, RDW Std Deviation 36.1, RDW Coeff of Atif 11.9, Plt Count 256, MPV 10.1, Immature Gran % (Auto) 0.300, Neut % (Auto) 51.1, Lymph % (Auto) 36.1, [place] % (Auto) 8.7, Eos % (Auto) 3.2, Baso % (Auto) 0.6, Absolute Neuts (auto) 4.0, Absolute Lymphs (auto) 2.81, Nucleated RBC % 0, D-Dimer Quant (PE/DVT) 0.34, Sodium 138, Potassium 3.3, Chloride 102, Carbon Dioxide 24.9, Anion Gap 11, BUN 18, Creatinine 1.09, Estim Creat Clear Calc 70.69, Est GFR (MDRD) Non-Af 76, BUN/Creatinine Ratio 16.6, Glucose 145 H, Calcium 9.1, Troponin T High Sens 14, NT pro BNP II 105 04/26/25 07:35: Troponin T Hi Sens 2 Hr 10 Rhythm Strip Rhythm Strip: Sinus Rhythm Cardiology Labs/Tests 04/26/25 05:31: WBC 7.8, RBC 5.10, Hgb 14.7, Hct 42.4, MCV 83.1, MCH 28.8, MCHC 34.7, Plt Count 256, MPV 10.1, Immature Gran % (Auto) 0.300, Neut % (Auto) 51.1, Lymph % (Auto) 36.1, [place] % (Auto) 8.7, Eos % (Auto) 3.2, Baso % (Auto) 0.6, Absolute Neuts (auto) 4.0, Nucleated RBC % 0, D-Dimer Quant (PE/DVT) 0.34, Sodium 138, Potassium 3.3, Chloride 102, Carbon Dioxide 24.9, Anion Gap 11, BUN 18, Creatinine 1.09, Est GFR (MDRD) Non-Af 76, BUN/Creatinine Ratio 16.6, G lucose 145 H, Calcium 9.1 Rhythm: Sinus rhythm EKG: Sinus bradycardia with normal intervals and normal QRS ECHO: Preliminary appears to have normal biventricular size and function with no significant valvular pathology except mildly dilated aortic root and ascending aorta 3.8 cm Radiography Diagnostic Testing: Radiology Impression Chest X-Ray 04/26/25 05:55 IMPRESSION: No acute pulmonary process Reading Location: [facility] Risk Score for UA/STEMI Assesmment (YES = 1) Risk Stratification Applicable: Yes Age > or = 65: No > or = 3 CAD risk factors (HTN, Hypercholesterolemia, Diabetes, family hx, current smoker): Yes (Family history for premature CAD) Known CAD (Stenosis > or = 50%): No ASA used in past 7 days: No Severe angina (> or = 2 episodes in 24 hrs): No EKG ST change > or = 0.5mm: No Positive cardiac markers: No Score [place] Risk Score of mortality/ recurrent ischemic event over the next 14 days: 0- 1 = 4.7% - Low Risk
[2025-04-26 10:58] LABS: Troponin T High Sens 4 HR 11 ng/L (<=22)
--- NOTE | 2025-04-26 11:55 | STRESSREP ---
Stress Test Report Exercise myocardial perfusion stress test. [65]-year-old [male] with a history of [syncope but a strong family history for premature CAD associated with bradycardia]. Stress protocol: Resting EKG demonstrates [sinus] rhythm with a rate of [67] bpm resting blood pressure is [150/98] mmHg. The patient exercised according to the regular Aramis protocol for a total duration of [9 minutes] attaining a maximum heart rate of [148] bpm which was [94]% of maximum predicted heart rate; the maximum workload was [10.10] metabolic equivalents. At rest there were no ST or T wave changes noted to suggest ischemia and at peak exercise upsloping ST changes only were noted which did not meet the criteria for ischemia. No clinical angina was noted the test was terminated due to the target heart rate being achieved/fatigue. The peak blood pressure was [192/88] mmHg. Rate-pressure product was [70006 ]. Myocardial perfusion protocol. [ 12] mCi of technetium 99m sestamibi was injected at rest. The patient exercised according to regular Aramis protocol for total duration of [ 9 min] and at peak exercise [34.9 ] mCi of technetium 99m sestamibi was injected stress images were obtained stress and rest images were reconstructed in comparing the short axis vertical long and horizontal long axis. Gated images were also obtained. Perfusion SPECT analysis: Review of the stress images demonstrate normal uptake of tracer noted in all areas of the myocardium. The resting images similarly demonstrate normal uptake of tracer noted in all areas of the myocardium. No areas of reversibility are noted to suggest ischemia no previous infarct was noted. Gated SPECT analysis: The gated ejection fraction is [ ]%. Conclusion: Negative exercise myocardial perfusion stress test for myocardial infarction or ischemia Normal ventricle size and function Normal heart rate and blood pressure response to exercise
--- NOTE | 2025-04-26 13:03 | STRESSREP ---
Stress Test Report Exercise myocardial perfusion stress test. [65]-year-old [male] with a history of [syncope but a strong family history for premature CAD associated with bradycardia]. Stress protocol: Resting EKG demonstrates [sinus] rhythm with a rate of [67] bpm resting blood pressure is [150/98] mmHg. The patient exercised according to the regular Aramis protocol for a total duration of [9 minutes] attaining a maximum heart rate of [148] bpm which was [94]% of maximum predicted heart rate; the maximum workload was [10.10] metabolic equivalents. At rest there were no ST or T wave changes noted to suggest ischemia and at peak exercise upsloping ST changes only were noted which did not meet the criteria for ischemia. No clinical angina was noted the test was terminated due to the target heart rate being achieved/fatigue. The peak blood pressure was [192/88] mmHg. Rate-pressure product was [[id number] ]. Myocardial perfusion protocol. [ 12] mCi of technetium 99m sestamibi was injected at rest. The patient exercised according to regular Aramis protocol for total duration of [ 9 min] and at peak exercise [34.9 ] mCi of technetium 99m sestamibi was injected stress images were obtained stress and rest images were reconstructed in comparing the short axis vertical long and horizontal long axis. Gated images were also obtained. Perfusion SPECT analysis: Review of the stress images demonstrate normal uptake of tracer noted in all areas of the myocardium. The resting images similarly demonstrate normal uptake of tracer noted in all areas of the myocardium. No areas of reversibility are noted to suggest ischemia no previous infarct was noted. Gated SPECT analysis: The gated ejection fraction is [60 ]%. Conclusion: Negative exercise myocardial perfusion stress test for myocardial infarction or ischemia Normal ventricle size and function Normal heart rate and blood pressure response to exercise
[2025-04-26 13:31] LABS: Magnesium 2.3 mg/dL (1.5-2.2)
--- NOTE | 2025-04-26 15:25 | DS.PCM_ITS ---
Providers Date of Admission: 04/26/25 Primary Care Physician: Dr. Heriberto Perry, Reason For Visit: SYNCOPE Diagnosis Discharge Diagnosis (1) History of hypertension: Status: Acute Code(s): Z86.79 - Personal history of other diseases of the circulatory system (2) AV block: Status: Acute Code(s): I44.30 - Unspecified atrioventricular block (3) Syncope: Status: Acute Code(s): R55 - Syncope and collapse Plan: Patient has been feeling fine as of late but was under duress with his being ill requiring emergent surgery last night. Though it was noted that patient has second-degree Mobitz 2 heart block. From what I can see it just seem to be 3 instances thus far. It is unclear what actually transpired when he actually passed out though concerning that this may have been the cause. His potassium is 3.3 so we will correct that as well as check a magnesium. Patient only takes lisinopril/HCTZ so I do not feel that is the culprit of his heart block. I will check an echocardiogram and consult cardiology. (4) Hypertension: Status: Chronic Code(s): I10 - Essential (primary) hypertension (5) Hypokalemia: Status: Acute Code(s): E87.6 - Hypokalemia (6) Lipids blood increased: Status: Acute Code(s): E78.5 - Hyperlipidemia, unspecified Plan Hypertension: Continue with his lisinopril/HCTZ VTE prophylaxis: Low risk given observation status. CODE STATUS: Addressed with the patient. Patient wishes to be full code Medications at Discharge Home Medications lisinopril 40 mg tablet 40 mg PO DAILY #30 tabs 04/26/25 Hospital Course Operations None Procedures 2-D Echocardiogram and Stress test Summary of Care Provided Hospital Course: Greater than 70 minutes spent evaluating the patient, discussing with specialist and reevaluating the patient and performing necessary elements to the history and physical, discharge, and ordering tests and medications. This is a 75-year-old male who had a syncopal episode. Patient was in the hospital with his who was requiring surgery for an event. He was sitting in a chair and then passed out. Presented emergency room and his workup was unremarkable but he did have dropped beats on 3 occasions while in the emergency room. There was unclear as to if that was the cause of his syncope so the patient was brought in to the hospital and patient was seen by cardiology. Patient underwent echocardiogram as well as a stress test that were both unremarkable. Cardiology did not feel that the sporadic drop beats were the cause of his syncope rather that this may have been a vasovagal event with the patient being here with his spouse, and being overnight as well as possibly dehydration. I did recommend getting a Lyme titer which has been ordered here. TSH was normal. Patient will have his medications changed to as he takes lisinopril/HCTZ at home. He will continue with lisinopril at a higher dose and drop the HCTZ. Patient advised if he has any further symptoms such as this syncope, to notify your physician or return to the emergency room. Weight / BMI Weight Weight: 77.1 kg Body Mass Index (BMI) 24.3 ABG / Lab / Microbiology Data 04/26/25 05:31 04/26/25 05:31 Laboratory: Laboratory Results - last 24 hr 04/26/25 05:26: POC Glucose 135 H 04/26/25 05:31: WBC 7.8, RBC 5.10, Hgb 14.7, Hct 42.4, MCV 83.1, MCH 28.8, MCHC 34.7, RDW Std Deviation 36.1, RDW Coeff of Atif 11.9, Plt Count 256, MPV 10.1, Immature Gran % (Auto) 0.300, Neut % (Auto) 51.1, Lymph % (Auto) 36.1, [place] % (Auto) 8.7, Eos % (Auto) 3.2, Baso % (Auto) 0.6, Absolute Neuts (auto) 4.0, Absolute Lymphs (auto) 2.81, Nucleated RBC % 0, D-Dimer Quant (PE/DVT) 0.34, Sodium 138, Potassium 3.3, Chloride 102, Carbon Dioxide 24.9, Anion Gap 11, BUN 18, Creatinine 1.09, Estim Creat Clear Calc 70.69, Est GFR (MDRD) Non-Af 76, BUN/Creatinine Ratio 16.6, Glucose 145 H, Calcium 9.1, Troponin T High Sens 14, NT pro BNP II 105 04/26/25 07:35: Magnesium 2.3 H, Troponin T Hi Sens 2 Hr 10 04/26/25 10:18: Troponin T Hi Sens 4Hr 11, TSH 2.200 Radiography Diagnostic Testing: Radiology Impression Chest X-Ray 04/26/25 05:55 IMPRESSION: No acute pulmonary process Reading Location: [id number] Echocardiogram 04/26/25 07:55 Interpretation Summary Normal LV size and wall thickness. The estimated ejection fraction is 55 %. Normal diastology for age. Right ventricular systolic pressure estimated to be 24 mmHg. Trace to mild tricuspid agitation otherwise no significant valvular pathology Mildly dilated ascending aorta 3.9 cm Ordering Physician: Deon Dominguez Referring Physician: eHriberto Perry Performed By: Mihai Hawley RDCS D/C Instructions DC O2, CPAP, BIPAP Needs Home O2 Discharge instructions: No Meaningful Use Info Meaningful Use Meaningful Use Diagnoses (Choose all that apply): None applicable Discharge Plan Admission Admit Date/Time: 04/26/25 07:25 Primary Reason for Your Visit: syncope Attending Provider: Deon Dominguez Primary Care Provider: Heriberto Perry Instructions Additional Instructions / Restrictions: You had a syncopal episode (fainting spell) likely due to combination of events such as being here overnight + dehydration possible related with your diuretic component of your blood pressure medication. That diuretic component is called hydrochlorothiazide. So you had an echocardiogram (ultrasound of your heart) and a stress test that were both normal. We did do a thyroid study which was also normal as well. Your blood pressure medication will be adjusted to increase your lisinopril to 40 twice daily. Notify your physician or return to the emergency room if he had any further syncopal events in the future. Discharge Orders/Prescriptions Prescriptions: New lisinopril 40 mg tablet 40 mg PO DAILY Qty: 30 0RF Discontinued lisinopril-hydrochlorothiazide 20-12.5 mg tablet 1 tab PO DAILY Referrals / Follow Up: Heriberto Perry, [Primary Care Provider, Family Practice] - Within 2 Weeks Disposition Disposition (needs filled in before D/C Order can be placed): Home, Self Care Charges/Coding Visit Charges OBSV E&M: 10827 Observ/hosp same date L2
--- NOTE | 2025-04-26 15:55 | PHA.DC.MR.R ---
Pharmacy [place] Med Reconciliation Pharmacy Service has performed discharge medication reconciliation for this patient. The patient's discharge medication list was reviewed for discrepancies and discrepancies were resolved. Medications at Discharge Home Medications lisinopril 40 mg tablet 40 mg PO DAILY #30 tabs 04/26/25
--- NOTE | 2025-04-26 15:58 | CASEMGMT ---
Patient has order for discharge. RN CM in to discuss needs at discharge. Patient denies needs or help at discharge. Patient had no further questions or concerns.
[2025-04-28 11:07] LABS: Lyme Scn Total Ab w/Rflx Negative (Negative)
== END 2025-04-26 15:58 | disposition home or self-care (01) ==
LOC: ED 05:49 → PCU 07:51
PROVIDERS: Internal Medicine Cardiovascular Disease; Emergency Provider Specialist/Technologist Athletic Trainer; PCP Family Medicine
DX: R55 Syncope and collapse (principal); I10 Essential (primary) hypertension; I44.1 Atrioventricular block, second degree; E87.6 Hypokalemia; R00.1 Bradycardia, unspecified; Z79.899 Other long term (current) drug therapy; R94.31 Abnormal electrocardiogram [ECG] [EKG]; I49.3 Ventricular premature depolarization; I77.819 Aortic ectasia, unspecified site; E78.5 Hyperlipidemia, unspecified
CPT/HCPCS: 36415; 71045; 78452; 80048; 82962; 83735; 83880; 84443; 84484; 85025; 85379; 86618; 93005; 93017; 93306; 96360; 96361; 99221; 99284; A9500; A4216; G0378